=== PATIENT | female | born 1960 | race Caucasian/White ===

== ENCOUNTER → 2018-09-19 15:53 | Outpatient (CLI) | payer OTHER, SELFPAY ==
--- NOTE | 2018-09-19 15:57 | RAD_ITS ---
STUDY: X-RAY - THORACIC SPINE REASON FOR EXAM: Female, 58 years old. PAIN AND LIMITED ROM X1 WEEK S/P BENDING INJURY TECHNIQUE: 3 view(s) of the thoracic spine were obtained. COMPARISON: None. FINDINGS: Normal kyphosis of the thoracic spine. There is no substantial scoliosis. There is multilevel endplate spondylosis of the thoracic vertebrae. There is mild multilevel disc space narrowing of the thoracic spine. Mild partial compression fractures of indeterminate age are seen at T11 and T8. The soft tissue structures are unremarkable. RAD/Thoracic Spine 3 Views IMPRESSION: Mild degenerative changes consistent with age. Mild partial compression fractures of T8 and T11 of indeterminate age. Electronically Signed: Harmeet Horton MD at 16:20 EDT , Service support ,
--- NOTE | 2018-09-19 15:57 | RAD_ITS ---
STUDY: X-RAY - LUMBAR SPINE REASON FOR EXAM: Female, 58 years old. Pain. Limited range of motion. TECHNIQUE: 3 view(s) of the lumbar spine were obtained. COMPARISON: None FINDINGS: Normal lumbar lordosis. Mild levoconvex scoliosis with a rotatory component. Alignment is within normal limits. No compression fractures. Moderate to severe degenerative disc disease at L2-L3 and L3-L4. There is atherosclerotic calcification of the abdominal aorta without a demonstrated aneurysm. RAD/Lumbar Spine 2 or 3 Views IMPRESSION: No acute abnormality. Mild levoconvex scoliosis. Multilevel degenerative changes. Electronically Signed: Harmeet Horton MD at 16:21 EDT , Service support ,
== END ==
PROVIDERS: Referring Provider Physician Assistant; Visit Provider Physician Assistant
DX: M54.9 Dorsalgia, unspecified (principal)
CPT/HCPCS: 72072; 72100

== ENCOUNTER 2020-02-28 09:30 | Emergency (ER) | payer OTHER, MEDICAID, SELFPAY ==
[2020-02-28 09:31] VITALS: BP 148/80; PULSE 75; RESP 18; TEMP 36.4; O2SAT 99; BMI 27.6
--- NOTE | 2020-02-28 09:40 | ED.DCSUM_ITS ---
History of Present Illness <Russell Faustin - Last Filed: 02/28/20 10:42> Informant: Patient, Family Occurred: Yesterday Mechanism/Context: Fall Onset: Yesterday Context: Sudden Onset Timing: Continuous Quality of Pain: Sharp, Throbbing Location: left knee Current Severity: Severe Maximum Severity: Severe Worsened by: movement, walking Relieved by: nothing Associated Symptoms: Negative for: Parasthesia, Weakness, Loss of Funtion Narrative: 59-year-old female presents to the emergency department with left knee pain. Patient tripped over her cord for her vacuum last evening landing directly on her left knee anteriorly. She had no prodromal symptoms. She did not hit her head or lose consciousness. She denies any numbness tingling or weakness. She is not on blood thinners. She is having pain and swelling of the left knee. She is able to bear weight but complains of significant pain with doing so. She has not had any history of injury or surgery to this extremity previously. She denies any other injuries Tetanus Immunization: Unknown Prior similar symptoms: No Recent Illness/Hospitalization: No <Fortunato Chau - Last Filed: 02/28/20 11:06> Chief Complaint: Fall Past Medical History <Russell Faustin - Last Filed: 02/28/20 10:42> Prior records reviewed: Yes Past Medical History: None Surgical History: no surgical history Lives: With Family Smoking Status: Current every day smoker Alcohol: Occasional Drugs: None <Fortunato Chau - Last Filed: 02/28/20 11:06> - Allergies and Home Meds Allergies/Adverse Reactions: Allergies meperidine [From Demerol] Allergy (Verified 02/28/20 09:34) Itching Primary Care Physician: Narciso Chávez MD [Primary Care Provider] - Review of Systems All systems negative except as indicated General: Denies: Chills, Fever, Sweats Eyes: Denies: Visual changes - bilaterally, Diplopia ENT: Denies: Rhinorrhea, Sore throat Cardiovascular: Denies: Chest pain, Palpitations Respiratory: Denies: Dyspnea, Cough, Dyspnea on exertion Gastrointestinal: Denies: Abdominal pain, Nausea, Vomiting, Diarrhea, Melena, Hematochezia Genitourinary: Denies: Dysuria, Hematuria, Frequency Musculoskeletal: Reports: Swelling, Extremity Pain. Denies: Back pain Skin: Denies: Rash, Wounds Neurological: Denies: Headache, Weakness, Numbness <Fortunato Chau - Last Filed: 02/28/20 11:06> Physical Exam Vital Signs/Narrative: Vital Signs Temp Pulse Resp BP Pulse Ox 02/28/20 09:31 97.5 F L 75 18 148/80 H 99 <Russell Faustin - Last Filed: 02/28/20 10:42> Vital Signs/Narrative: Vital Signs Temp Pulse Resp BP Pulse Ox 02/28/20 09:31 97.5 F L 75 18 148/80 H 99 Inital Vital Signs reviewed: Yes - Extremity Exam Left Knee: - - Patient has swelling anteriorly over her left knee. There is no bruising. There are no abrasions or signs of trauma. Her skin is intact. There is no deformity noted. She is able to actively flex and extend fully but it is extremely painful for her. She is neurovascularly intact distally. There is no bony tenderness of her hip or thigh, leg, ankle or foot. DP and PT pulses are normal and her capillary refill and sensation are normal throughout all 5 toes. General: Well nourished, Well developed Head: Normocephalic, Atraumatic Eyes: Perrl, EOMI ENT: No Trauma, Moist Mucous Membranes Neck: Nontender, Full ROM Cardiovascular: Regular rate, Regular rhythm, No murmurs Respiratory: No distress, CTA bilaterally, Chest nontender Abdomen: Soft, Nontender, Nondistended, Normal bowel sounds Back: Nontender Skin: Normal color, No rash Neurological: Alert, Oriented x3, Cranial nerves II-XII grossly intact, Normal Strength, Normal Sensation Psychological: Normal affect <Fortunato Chau - Last Filed: 02/28/20 11:06> Diagnostic/Tx/Re-eval - Medical Decision Making I supervised the PA and have performed my own pertinent history and physical. Results and treatment plan were discussed. HPI: Patient reports that last night she tripped over a cord to a heater and landed on her left knee. She denies any blow to the head or loss of consciousness. She is not on anticoagulants. She denies any neck, back, shoulder, wrist, or hip pain. PE: Vitals: Stable. Afebrile. Neck: No vertebral tenderness. Full ROM without difficulty. Cleared by NEXUS criteria. Back: No vertebral tenderness. General: A&O x 3. NAD. Cardiovascular exam: Regular rate and rhythm, no murmur, rub or gallop. Respiratory exam: Chest nontender. No crepitus. Clear to auscultation bilaterally. No wheezes or stridor. Abdominal exam: Soft, nontender, nondistended, normal bowel sounds. No pain in RUQ or LUQ specifically. No peritoneal signs. Extremity: Moderate left knee effusion. No pain with palpation. Limited range of motion secondary to pain. She is able to extend her leg off the bed. She is neurovascular intact distally. Emergency Department course: X-ray shows no fracture. Read by the radiologist as a possible popliteal cyst. Because of this an ultrasound will be obtained. Treatment Plan: Patient will be discharged with crutches and an Daniel wrap. Instructed use use [place] for pain. Follow-up her primary care physician in 1 week if not improving. Return to the emergency department for any worsening symptoms. This note was generated with [employer] dictation software. It may contain incorrect words, spelling, and punctuation that were not noted in review of the chart prior to signing. <Russell Faustin - Last Filed: 02/28/20 10:42> Impressions Knee X-Ray 02/28/20 10:04 IMPRESSION: Findings suggestive of a popliteal cyst. Correlation with ultrasound is recommended. Electronically Signed: David Zonia, at 10:24 EDT , Service support , 02/28/20 10:04 Xray Knee [Knee 4 or More Views] [RAD] Stat - Medical Decision Making Ultrasound showed a small Cain's cyst about 1 x 2 cm. No DVT. Patient reassured. Patient given Daniel wrap and crutches and I will use [place] for pain she will rest ice elevate and follow-up on Monday with her family physician or return for worsening symptoms which we discussed. <Fortunato Chau - Last Filed: 02/28/20 11:06> ED Disposition <Russell Faustin - Last Filed: 02/28/20 10:42> <Fortunato Chau - Last Filed: 02/28/20 11:06> - Plan for ED Patient: Disposition: Home or Assisted Living Diagnosis: Contusion of left knee, Cyst, Cain's knee Instructions: ED Cyst Cain, ED SOFT TISSUE CONTUSION Prescriptions: Oxycodone HCl/Acetaminophen [Percocet 5/325] 1 tab PO Q6H PRN PRN 3 Days #12 tab PRN Reason: Pain Prescription Printed Referrals: Narciso Chávez MD [Primary Care Provider] -
[2020-02-28] MEDS: Ketorolac 60 MG/2 ML Vial IM (09:56)
--- NOTE | 2020-02-28 10:04 | RAD_ITS ---
STUDY: X-RAY - LEFT KNEE REASON FOR EXAM: Female, 59 years old. Pain, injury, swollen, pt. Had difficulty bending knee TECHNIQUE: 4 view(s) of the knee. COMPARISON: None. FINDINGS: Normal visualized distal femur. Normal visualized proximal tibia and fibula. Normal proximal tibiofibular articulation. Normal medial femorotibial compartment. Normal lateral femorotibial compartment. Normal patellofemoral articulation. Findings suggestive of a 8.1 cm x 7.1 cm rounded soft tissue density in the popliteal fossa. This may represent a popliteal cyst. Correlation with ultrasound is recommended. RAD/Knee 4 or More Views IMPRESSION: Findings suggestive of a popliteal cyst. Correlation with ultrasound is recommended. Electronically Signed: David Brar, at 10:24 EDT , Service support ,
--- NOTE | 2020-02-28 10:35 | VDLE_ITS ---
Reason For Study: Popliteal cyst Procedure LEFT Exam performed portable in ED. GSV is normal. A preliminary report was called and/or faxed CFV is compressible, spontaneous, phasic, to Roxie and Kandi. competent, and demonstrates normal augmentation. FV is compressible, spontaneous, phasic, competent and demonstrates normal augmentation. POP V is compressible, spontaneous, phasic, competent and demonstrates normal augmentation. T/P Trunk is compressible. PTV is compressible. LT PerV is compressible. Nonvascularized structure noted in the popliteal space measuring approximently 1.12 x 2.13 x 3.15 cm. Interpretation Summary Deep veins of the left lower extremity are patent and compressible segmentally. There is no evidence of left lower extremity deep vein thrombosis. Valvular competence appears intact within the proximal deep venous system on the left . The left great saphenous vein appears patent and compressible segmentally. A non-vascular, heterogeneous structure is noted in the left popliteal space, measuring 1.12 cm x 2.13 cm x 3.15 cm. This may represent a popliteal cyst. Clinical correlation is advised. Ordering Physician: Russell Faustin Referring Physician: Narciso Chávez Performed By: Svetlana Carrion RVT
== END 2020-02-28 11:47 | disposition home or self-care (01) ==
PROVIDERS: Emergency Provider Physician Assistant Medical; PCP Family Medicine
DX: S80.02XA Contusion of left knee, initial encounter (principal); W18.09XA Striking against other object with subsequent fall, initial encounter; Y93.9 Activity, unspecified; Y92.009 Unspecified place in unspecified non-institutional (private) residence as the place of occurrence of the external cause; M71.22 Synovial cyst of popliteal space [Baker], left knee; F17.200 Nicotine dependence, unspecified, uncomplicated
CPT/HCPCS: 73564; 93971; 96372; 99283

== ENCOUNTER → 2020-05-26 12:29 | Outpatient (CLI) | payer MEDICAID, SELFPAY ==
--- NOTE | 2020-05-26 12:34 | BI_ITS ---
MAMMOGRAPHY - BILATERAL SCREENING REASON FOR EXAM: Female, 59 years old. Routine annual screening examination. PERTINENT HISTORY: Non-contributory. TECHNIQUE: Digital bilateral breast debbie (3D mammographic acquisition) in the CC and MLO projections. 2-D mediolateral oblique (MLO) and craniocaudad (CC) views of both breasts were obtained. CAD: Full Field Digital Mammography with Computer Added Detection was performed. COMPARISON: No comparison mammograms available at this time. If any prior films become available, an addendum to this report can be generated. FINDINGS: Breast Composition: There are scattered areas of fibroglandular density. There are no dominant masses or suspicious calcifications. No other significant abnormalities are identified. BI/SCREEN MAMM (CAD) W/DEBBIE BILAT IMPRESSION: Negative screening mammogram. Yearly followup mammogram recommended. (A) ASSESSMENT CATEGORY: BIRADS Category 1: Negative. A letter regarding these results will be sent to the patient by the facility within 30 days. Approximately 10% of breast cancers are not detected by mammography. A normal mammogram should not delay biopsy of a clinically suspicious abnormality. [id number] Electronically Signed: David Brar, at 13:20 EST , Service support ,
== END ==
PROVIDERS: PCP Family Medicine; Referring Provider Family Medicine; Visit Provider Family Medicine
DX: Z12.31 Encounter for screening mammogram for malignant neoplasm of breast (principal)
CPT/HCPCS: 77063; 77067

== ENCOUNTER → 2020-06-22 10:08 | Outpatient (CLI) | payer MEDICAID, SELFPAY ==
--- NOTE | 2020-06-22 10:51 | MRI_ITS ---
ACR Level 3 findings have been noted. An addendum which confirms receipt of the report will follow. STUDY: MRI LUMBAR SPINE WITHOUT CONTRAST REASON FOR EXAM: Female, 60 years old. low back pain, left leg pain TECHNIQUE: Standardized fat and water weighted pulse sequences were obtained in the sagittal and axial planes. COMPARISON: X-ray dated 09/19/2018 FINDINGS: Normal lumbar lordosis. Dextroscoliosis centered at L2/L3. Normal conus medullaris that terminates at the L1. L1-2: There is minimal disc space narrowing and endplates spondylosis. L2-3: There is moderate disc space narrowing and endplates spondylosis. Moderate disc bulge and facet arthropathy asymmetric to the right with moderate right and mild left foraminal stenosis. There is 2.2 x 1.4 x 3.5 cm lobulated cystic structure at the right paracentral/foraminal region. There is scalloping of the vertebral body which was seen on the prior x-ray examination in 2019, consistent with chronic process. Evaluation is limited without intravenous contrast. L3-4: There is severe disc space narrowing and endplates spondylosis. Moderate disc osteophyte complex and facet arthropathy with mild central canal stenosis. Moderate right and mild left foraminal stress. L4-5: There is moderate disc space narrowing and endplates spondylosis. Moderate disc osteophyte complex and facet arthropathy asymmetric to the left with moderate left foraminal stenosis. Mild central canal and mild right foraminal stenosis. L5-S1: There is minimal disc space narrowing and endplates spondylosis. Minimal disc bulge and facet arthropathy without significant central canal or foraminal stenosis. MRI/Spine Lumbar (Routine) IMPRESSION: L2/L3: 2.2 cm cystic lesion. Comparison with prior examinations if available or Further evaluation with contrast enhanced MRI is recommended. Moderate/severe scoliosis and multilevel degenerative changes. Electronically Signed: Bo Sierra MD at 9:47 EST Tel , Service support ,
== END ==
PROVIDERS: PCP Family Medicine; Referring Provider Orthopaedic Surgery; Visit Provider Orthopaedic Surgery
DX: M47.26 Other spondylosis with radiculopathy, lumbar region (principal)
CPT/HCPCS: 72148

== ENCOUNTER → 2020-07-30 10:14 | Outpatient (CLI) | payer MEDICAID, SELFPAY ==
--- NOTE | 2020-07-30 10:21 | BD_ITS ---
STUDY: DUAL ENERGY X-RAY ABSORPTIOMETRY / DXA REASON FOR EXAM: Female, 60 years old. 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 COMPARISON: None. FINDINGS: Lumbar Spine (L1-L4): g/cm2 (1.047) / T-score (-1.3) / Z-score (-0.2) Findings are suggestive of osteopenia with a low fracture risk. Left Femur Total: g/cm2 (0.628) / T-score (-3.0) / Z-score (-2.1) Left Femoral Neck: g/cm2 (0.620) / T-score (-3.0) / Z-score (-1.8) Right Femur Total: g/cm2 (0.623) / T-score (-3.1) / Z-score (-2.2) Right Femoral Neck: g/cm2 (0.607) / T-score (-3.1) / Z-score (-1.9) BD/Dexa Bone Density Study IMPRESSION: The patient is considered osteoporotic as outlined below according to World Pierre Organization (WHO) criteria with a high fracture risk. Reference Information: The T-score is the number of standard deviations above or below the standard which is normal for young adults at their peak bone mineral density. The World Health Organization (WHO) interprets the T-scores as follows: Above -1 Normal bone density Between -1 and -2.5 Osteopenia Equal to / or below -2.5 Osteoporosis As a practical clinical guideline, osteopenia may be graded as follows: Mild -1 through -1.5 Moderate -1.6 through -2.0 Severe -2.1 through -2.4 The Z-score is the number of standard deviations above or below age-matched controls. A Z-score of less than -1.5 would be considered abnormal. References: 1. NIH Osteoporosis and Related Bone Diseases www osteo.org 2. International Society for Clinical Densitometry www iscd.org 3. National Osteoporosis Foundation www nof.org Electronically Signed: David Brar MD at 14:38 EST , Service support ,
== END ==
PROVIDERS: PCP Family Medicine; Referring Provider Family Medicine; Visit Provider Family Medicine
DX: M81.0 Age-related osteoporosis without current pathological fracture (principal); Z78.0 Asymptomatic menopausal state
CPT/HCPCS: 77080

== ENCOUNTER → 2020-12-10 07:55 | Outpatient (CLI) | payer MEDICAID, SELFPAY ==
[2020-12-02 13:18] VITALS: BMI 26.0
--- NOTE | 2020-12-10 07:56 | CT_ITS ---
STUDY: LOW DOSE CT LUNG CANCER SCREENING REASON FOR EXAM: Female, 60 years old. TOBACCO USE RADIATION DOSAGE (If Supplied By Facility): CTDIvol = ( 3.02 ) mGy, DLP = ( 105.33 ) mGycm TECHNIQUE: No contrast was administered. Low dose technique was utilized (average mAS-38 and kVp 120). 1.25 mm axial source images with a slice interval of 1.25-mm were reconstructed in lung windows. 2.5 mm axial source images with a slice interval of 2.5-mm were reconstructed in lung windows. 5.0 mm axial source images with a slice interval of 5.0-mm were reconstructed in soft tissue windows. Nodule measured using lung windows on PACS and/or independent workstation with automated measurement of minimum and maximum diameter. Nodule measurement reported as average diameter rounded to the nearest whole number. Growth is defined as an increase ins size of greater than 1.5 mm. COMPARISON: None. FINDINGS: There is a suspicious poorly defined, somewhat spiculated noncalcified mass in the left perihilar region measuring 2.3 x 2.5 x 2.7 cm. This needs further evaluation with PET/CT scan or biopsy. There is associated atelectasis but no other suspicious noncalcified mass or nodule noted. The soft tissues show normal-appearing thyroid no suspicious adenopathy. There are calcified coronary vessels. Bony structures show degenerative change CT/Low Dose CT Lung Screening IMPRESSION: Lung-RADS category 4X - Chest CT with or without contrast, PET/CT and/or tissue sampling can be obtained depending on the probability of malignancy and comorbidities. IMPORTANT NOTES FOR USE: ACR Lung-RADS Version 1.1 Assessment Categories Release Date: 2018 Category: Coded 0-4 bases on nodule(s) with highest degree of suspicion. Negative screen is defined as categories 1 and 2; a positive screen is defined as categories 3 and 4. Category 3 and 4A nodules that are unchanged on interval CT should be coded as category 2, and individuals returned to screening in 12 months. Category 4X: Category 3 or 4 nodules with additional imaging findings that increase the suspicion of lung cancer, such as spiculation, GGN that doubles in size in 1 year, enlarged lymph notes, etc. Category Modifiers: S (significant finding unrelated to lung cancer) Electronically Signed: Gael Atkins MD at 16:17 EDT , Service support ,
== END ==
PROVIDERS: PCP Family Medicine; Referring Provider Family Medicine; Visit Provider Family Medicine
DX: Z72.0 Tobacco use (principal)
CPT/HCPCS: 71271

== ENCOUNTER → 2020-12-29 18:10 | Outpatient (CLI) | payer MEDICAID, SELFPAY ==
[2020-12-02 13:18] VITALS: BMI 26.0
--- NOTE | 2020-12-29 17:00 | PET_ITS ---
EXAMINATION: FDG PET-CT INDICATIONS: A 60-year-old female with reported history of pulmonary nodularity. COMPARISON EXAMINATION: CT of the chest report dated 12/10/20 INDEX LESION SIZE SUV INTERPRETATION Left mid posteromedial lung-left upper lobe 23.6 x 32.3-mm (frame 174) 12.4 Fulfills quantitative criteria for viable neoplasm, histopathologic analysis recommended TECHNIQUE: Following the intravenous administration of 14.38 mCi of F-18 deoxyglucose via the left antecubital fossa, multiplanar image acquisitions of the neck, chest, abdomen and pelvis to level of mid thigh, obtained at one hour post radiopharmaceutical administration contemporaneously interpreted with the current CT of the neck, chest, abdomen and pelvis, to level of mid thigh, dated 12/29/[address] of the chest report dated 12/10/20 reveals: BLOOD GLUCOSE LEVEL:?? 83 mg/dl?HEIGHT:?66 inches?WEIGHT: 166 lbs. FINDINGS: 1. Focal increased glucose metabolism is manifest in the left mid medial lung-left upper lobe adjacent to the thoracic perihilum generating a calculated maximal standard uptake value of 12.4. The maximal axial diameter of the corresponding parenchymal density-mass on review of CT of the chest dated 12/29/20 is 23.6-mm (transverse) x 32.3-mm (AP). 2. There is an asymmetric increase in fluorine labeled glucose uptake noted in the right parotid space generating a calculated maximal standard uptake value of 2.0. 3. Normal physiologic distribution of the radiopharmaceutical is apparent in the hepatic (2.8) and splenic parenchyma, both renal units, bladder and visualized intestinal tract. The visualized portion of the cerebral cortical-subcortical structures demonstrate symmetric and preserved glucose metabolism. Diffuse radiopharmaceutical concentration is noted in all four quadrants of the abdomen and pelvis. Pertinent CT findings are as follows: CHEST: There is atherosclerotic calcification defined in the thoracic aorta without evidence of dilatation-aneurysm formation. Coronary arterial calcification is observed. Bilateral axillary soft tissue densities with fatty hilus are non-glucose avid. There are no additional parenchymal densities-nodules defined in the right and left hemithorax with discernible increased FDG concentration. Subtle emphysematous changes are noted in the bilateral upper lung zones. ABDOMEN AND PELVIS: There is atherosclerotic calcification defined in the abdominal aorta without evidence of dilatation-aneurysm formation. Pelvic arterial calcification is defined. Right and left subcentimeter inguinal soft tissue is ametabolic. Colonic diverticulosis is defined. The uterus appears surgically absent. SKELETAL: Degenerative changes are noted in the cervical, thoracic and lumbar spine without evidence of increased radiopharmaceutical concentration. There is diffuse demineralization identified throughout the axial skeletal structures. PET/PET/CT Tumor Base -Thigh Init IMPRESSION: 1. The increase in FDG distribution defined in the left mid medial lung-left upper lobe fulfills quantitative criteria for viable neoplasm. Histopathologic analysis is recommended. (Lemus et al, Annals of Internal Medicine, 138:724, 2003). 2. Mild increased tracer uptake observed in the right parotid space does not fulfill quantitative criteria for malignant transformation. 3. No other quantitatively significant hypermetabolic abnormalities are encountered. Electronic Signature Zach Ruiz D.O. Accurate Quantification of SUVs for this report are calculated using the exclusive [employer]. (U.S. Patent No. [id number]). Standardization and correction of the FDG SUV metric via [employer] technology allow for vendor non-specific objective quantitative examination comparison and optimization of the sensitivity and specificity of the FDG PET-CT examination. Electronically Signed: Zach Ruiz DO at 7:59 EDT Tel , Service support ,
== END ==
PROVIDERS: PCP Family Medicine; Referring Provider Registered Nurse; Visit Provider Registered Nurse
DX: R91.8 Other nonspecific abnormal finding of lung field (principal)
CPT/HCPCS: 78815; A9552

== ENCOUNTER → 2021-01-13 12:15 | Outpatient (CLI) | payer MEDICAID, SELFPAY ==
[2021-01-13 05:56] VITALS: BMI 29.6
[2021-01-13 12:31] LABS: Hematocrit 44.5 % (37-47); Hemoglobin 14.7 g/dL (12.0-15.0); Mean Corpuscular Volume 93.9 fL (81-99); Mean Platelet Vol. 9.7 fl (6.2-12.0); Platelet Count 273 K/mm3 (150-450); RBC Distribution Width CV 13.2 % (11.6-14.6); RBC Distribution Width SD 45.3 fl (35.1-43.9); Red Blood Count 4.74 M/mm3 (4.2-5.4); White Blood Count 8.1 K/mm3 (4.4-11.0)
[2021-01-13 12:39] LABS: Prothrombin Time (Protime)PT. 12.6 SECONDS (11.7-14.9)
[2021-01-13 12:40] LABS: Partial Thromboplast Time 30.1 Seconds (24.1-36.2)
== END ==
PROVIDERS: PCP Family Medicine; Referring Provider Internal Medicine Critical Care Medicine; Visit Provider Internal Medicine Critical Care Medicine
DX: R91.8 Other nonspecific abnormal finding of lung field (principal)
CPT/HCPCS: 36415; 85027; 85610; 85730

== ENCOUNTER → 2021-01-22 08:04 | Outpatient (CLI) | payer MEDICAID, SELFPAY ==
[2021-01-13 05:56] VITALS: BMI 29.6
--- NOTE | 2021-01-22 15:10 | PFTCOMP_ITS ---
COMPLETE PULMONARY FUNCTION TEST INTERPRETATION Brief HPI: Patient is a 60 year old female, currently under the care of myself, who presents to [facility] for complete pulmonary function tests secondary to diagnosis of dyspnea. Respiratory therapist reports good effort and reproducible results. Interpretation: Forced expiration spirometry shows a moderately severe large airways obstructive ventilatory defect with an FEV1 of 51% predicted. There is a significant bronchodilator response in FEV1 by strict ATS criteria. Spirograms are of good quality and plateau slowly, indicating slowly emptying areas of the lungs. The respiratory flow volume loop shows decreased expiratory flow rates at all lung volumes consistent with airway obstruction. Lung volumes by body plethysmography show a normal total lung capacity at 5.54 L, 104% predicted. FRC and RV are elevated out of proportion. Lung volume measurements are consistent with hyperinflation and air-trapping. Diffusion capacity by carbon monoxide is normal at 70% predicted. The airway resistance is elevated. No previous pulmonary function tests were available for review. Impression: Partially reversible moderately severe large airways obstructive ventilatory defect resulting in air trapping
== END ==
PROVIDERS: PCP Family Medicine; Referring Provider Internal Medicine Critical Care Medicine; Visit Provider Internal Medicine Critical Care Medicine
DX: R06.00 Dyspnea, unspecified (principal)
CPT/HCPCS: 94060; 94726; 94729

== ENCOUNTER → 2021-01-26 13:45 | Outpatient (CLI) | payer MEDICAID, SELFPAY ==
[2021-01-13 05:56] VITALS: BMI 29.6
[2021-01-26 14:07] VITALS: PULSE 104; PULSE 111; PULSE 119; PULSE 123; PULSE 74; PULSE 83; PULSE 89; O2SAT 90; O2SAT 91; O2SAT 95; O2SAT 96; O2SAT 97; O2SAT 98
--- NOTE | 2021-01-27 09:54 | PCM.PSN.6M ---
PSN 6 Minute Walk Test 6 Minute Walk Test 6 Minute Walk Test: 6 Minute Walk Test PSN:6-Minute Walk Test Start: 01/26/21 14:07 Freq: Status: Active Protocol: RESP.6MINW Document 01/26/21 14:07 FR (Rec: 01/26/21 14:12 FR [id number]) 6 Minute Walk Test Date Performed 01/26/21 Time Performed 13:45 Height 5 ft 6 in Weight: 168 kg Weight in Pounds 370.[address]: Dr. Sanabria Assistive device used: None Pre-test Oxygen Delivery Method Room Air Pulse Ox (%) 96 Pulse Rate (60-100 beats/min) 74 Dyspnea Lu Scale (0-10) 0 Exertion Lu Scale (6-20) 6 1st minute Oxygen Delivery Method Room Air Pulse Ox (%) 98 Pulse Rate (60-100 beats/min) 89 2nd minute Oxygen Delivery Method Room Air Pulse Ox (%) 91 Pulse Rate (60-100 beats/min) 104 H 3rd minute Oxygen Delivery Method Room Air Pulse Ox (%) 90 Pulse Rate (60-100 beats/min) 111 H 4th minute Oxygen Delivery Method Room Air Pulse Ox (%) 95 Pulse Rate (60-100 beats/min) 123 H 5th minute Oxygen Delivery Method Room Air Pulse Ox (%) 95 Dyspnea Lu Scale (0-10) 118 Reported Symptoms Increased Work of Breathing 6th minute Oxygen Delivery Method Room Air Pulse Ox (%) 95 Pulse Rate (60-100 beats/min) 119 H Dyspnea Lu Scale (0-10) 5 Exertion Lu Scale (6-20) 11 Post-test Oxygen Delivery Method Room Air Pulse Ox (%) 97 Pulse Rate (60-100 beats/min) 83 Full Laps Walked 25 Partial Lap, Number of Tiles Walked 15 Total Distance Walked (ft) 1490 Interpretation Interpretation: The patient ambulated 1490 feet over the course of 6 minutes beginning on room air without assistive devices or breaks. Pretesting oxygen saturation was noted to be 96% on room air. With ambulation, the claudio oxygen saturation was 90%. This represents a significant exertional oxygen desaturation, consistent with a pulmonary limitation to exercise tolerance. Recommendations Recommendations: There is no indication for the use of supplemental oxygen at this time. However, close interval follow-up is recommended, given the degree of oxygen desaturation noted during this study.
== END ==
PROVIDERS: PCP Family Medicine; Referring Provider Internal Medicine Critical Care Medicine; Visit Provider Internal Medicine Critical Care Medicine
DX: R06.00 Dyspnea, unspecified (principal)
CPT/HCPCS: 94618

== ENCOUNTER 2021-01-29 10:50 | Day surgery (SDC) | payer MEDICAID, SELFPAY ==
[2021-01-13 05:56] VITALS: BMI 29.6
[2021-01-29] VITALS (7 sets, daily range): BP systolic 138–162; BP diastolic 73–89; PULSE 60–95; RESP 12–18; TEMP 36.4–36.6; O2SAT 96–100; BMI 27.3
--- NOTE | 2021-01-29 | LUNG_PTH ---
PATIENT: ANNA MALIN LOC: EN U#:[id number] AGE/SX: 60/F ROOM: RE01/29/[address]: Dr. Miguel Sanabria MD : 1960 BED: DIS: 01/29/2021 SPEC #: [id number] RECD: 01/29/21 13:52 STATUS: KELVIN LAUREN #: [id number] EMILIANO: 01/29/21 00:[address]: Miguel Sanabria DEPT: SURGICAL PATHOLOGY RECD BY: Torie Thomas ENTERED: 02/01/21 06:59 SP TYPE: LUNG BX OTHR DR: Dr. Narciso Chávez MD Tissues: Lung, NOS Procedures: Special Stain Group II Surgery Specimen Level IV Cytology Other HEADER OPERATION: EBUS PRE-OP DIAGNOSIS: Lung mass TISSUE SUBMITTED: Endobronchial biopsy LLL MICROSCOPIC DIAGNOSIS LLL, endobronchial biopsy: Fragments of bronchial mucosa and lung parenchymal tissue, negative for malignancy. See comment. MJ:kim 02/02/2021 COMMENT The specimen is evaluated at the time of biopsy by Dr. Rodgers. Immediate Evaluation = Respiratory epithelial cells noted. Negative for malignant cells. Correlation with clinical, radiologic findings and appropriate follow up are necessary. This case is discussed with Dr. Sanabria on 02/02/21. Case has been reviewed in consultation with Dr. Ohara who concurs with the above diagnosis. IDC:AM MICROSCOPIC DESCRIPTION Slides are reviewed. GROSS DESCRIPTION Received in fixative is one container labeled with the patient's name and designated endobronchial biopsy, left lower lobe of lung. The specimen consists of multiple irregular fragments of light hahn soft tissue that in aggregate measure 1 x 0.3 x <0.1 cm. The specimen is totally submitted in one cassette. / AM:kim 02/01/21 TC:5 CPT: 37041, 20089
--- NOTE | 2021-01-29 | ASPIG_PTH ---
PATIENT: ANNA MALIN LOC: EN U#:[id number] AGE/SX: 60/F ROOM: RE01/29/[address]: Dr. Miguel Sanabria MD : 1960 BED: DIS: 01/29/2021 SPEC #: [id number] RECD: 01/29/21 13:52 STATUS: KELVIN XIN #: [id number] EMILIANO: 01/29/21 00:[address]: Miguel Sanabria DEPT: CYTOLOGY RECD BY: Jolene Myles ENTERED: 01/29/21 13:54 SP TYPE: ASP OUT OTHR DR: Dr. Narciso Chávez MD Tissues: A - Lung, NOS B - Lung, NOS C - Lung, NOS D - Lung, NOS E - Lung, NOS F - Lung, NOS G - Lung, NOS H - Lung, NOS I - Lung, NOS Procedures: FNA Specimen Adequacy Special Stain Group II Surgery Specimen Level IV Cytology Other HEADER OPERATION: EBUS PRE-OP DIAGNOSIS: Lung mass TISSUE SUBMITTED: A - EBUS, TBNA, site 7 #1, B - EBUS, TBNA, site 7 #2, C - EBUS, TBNA, site 11L #3, D - EBUS, TBNA, site 11L #4, E - EBUS, TBNA, site 11L #5, F - EBUS, TBNA, site 11L #6, G - EBUS, TBNA, site 11L #7, H - EBUS, TBNA, site 7, I - EBUS, TBNA, site 11L, J - Pritchett LLL, K - LLL DIAGNOSIS CYTOLOGY A. EBUS, TBNA, site 7 #1: Negative for malignant cells. Respiratory epithelial cells and lymphocytes noted. B. EBUS, TBNA, site 7 #2: Negative for malignant cells. Respiratory epithelial cells and lymphocytes noted. C. EBUS, TBNA, site 11L #3: Negative for malignant cells. Predominantly respiratory epithelial cells noted. D. EBUS, TBNA, site 11L #4: Negative for malignant cells. Predominantly respiratory epithelial cells noted. E. EBUS, TBNA, site 11L #5: Negative for malignant cells. Numerous respiratory epithelial cells and lymphocytes noted. F. EBUS, TBNA, site 11L #6: Numerous lymphocytes are noted. Negative for malignant cells G. EBUS, TBNA, site 11L #7: Numerous lymphocytes are noted.. Negative for malignant cells. H. EBUS, TBNA, site 7 fluid (cell block): Negative for malignant cells. See microscopic description. I. EBUS, TBNA, site 11L fluid (cell block): Negative for malignant cells. See microscopic description. J. Pritchett LLL (cytospin and cell block): Negative for malignant cells. See comment. K. Brushing LLL (smears): Negative for malignant cells. MJ:kim 02/02/2021 COMMENT The specimen is evaluated at the time of procedure by Dr. Rodgers. Rapid Onsite Evaluation: A. EBUS, TBNA, site 7 #1: Negative for malignant cells. Respiratory epithelial cells and lymphocytes. B. EBUS, TBNA, site 7 #2: Negative for malignant cells. Respiratory epithelial cells and lymphocytes. C. EBUS, TBNA, site 11L #3: Negative for malignant cells. Predominantly respiratory epithelial cells. D. EBUS, TBNA, site 11L #4: Negative for malignant cells. Predominantly respiratory epithelial cells. E. EBUS, TBNA, site 11L #5: Negative for malignant cells. Numerous respiratory epithelial cells and some lymphocytes. F. EBUS, TBNA, site 11L #6: Numerous lymphocytes are noted. G. EBUS, TBNA, site 11L #7: Numerous lymphocytes are noted. Negative for malignant cells. Correlation with clinical, radiologic findings and appropriate follow up are necessary. Case has been reviewed in consultation with Dr. Ohara who concurs with the above diagnosis. IDC:AM CYTOLOGY STUDY Slides are reviewed. H. The specimen consists of respiratory epithelial cells, lymphocytes and cartilage. I. The specimen consists of lymphocytes and respiratory epithelial cells. J. The specimen is paucicellular and consists of respiratory epithelial cells and a few lymphocytes. CYTOLOGY GROSS A - Received labeled with the patient's name and and designated EBUS, TBNA, site 7 #1. The specimen consists of two stained smears for DEBORAH (Rapid Onsite Evaluation). B - Received labeled with the patient's name and and designated EBUS, TBNA, site 7 #2. The specimen consists of two stained smears for DEBORAH. C - Received labeled with the patient's name and and designated EBUS, TBNA, site 11L #3. The specimen consists of two stained smears for DEBORAH. D - Received labeled with the patient's name and and designated EBUS, TBNA, site 11L #4. The specimen consists of two stained smears for DEBORAH. E - Received labeled with the patient's name and and designated EBUS, TBNA, site 11L #5. The specimen consists of two stained smears for DEOBRAH. F - Received labeled with the patient's name and and designated EBUS, TBNA, site 11L #6. The specimen consists of two stained smears for DEBORAH. G - Received labeled with the patient's name and and designated EBUS, TBNA, site 11L #7. The specimen consists of two stained smears for DEBORAH. H - Received in RPMI is 40 ml of pink, needle rinsed fluid labeled with the patient's name and and designated EBUS, TBNA, site 7. The specimen is submitted for cell block preparation. I - Received in RPMI is 45 ml of pink, needle rinsed fluid labeled with the patient's name and and designated EBUS, TBNA, site 11L. The specimen is submitted for cell block preparation. J - Received is a metallic endoscopic cytobrush with adherent minute fragments of hahn-red tissue brush in 2 ml of clear red fluid and labeled with the patient's name and and designated per the requisition as brush LLL. The material is dislodged from the brush and submitted for cytology preparation including cell block. K - Received are three smears labeled with the patient's name and designated per the requisition as LLL. Submitted for staining. / SJ:rg 01/29/2021 TC:5 CPT: 46879 x3, 15241, 72105, 83533 x2, 19146 x2, 93920 x5
[2021-01-29] MEDS: Lactated Ringers 1,000 ML 100 ML IV (11:20)
--- NOTE | 2021-01-29 11:58 | HP.PCM_ITS ---
History and Physical Date of Admission: 01/29/21 Patient seen and examined independently just prior to the procedure. All questions were answered. There is no significant change to the note provided below. [facility] Medicine [place] [address] [address] [place] [address] [phone] OFFICE VISITDate of Service: 01/13/21 MR#:[id number]:[id number]: ANNA MALIN #:[id number]:1960 Provider:Dr. Miguel Sanabria, MDAge/Sex: 60/F [place] [place] [facility] [place]Signed Assessment and Plan Assessment and Plan (1) Lung mass: Status: Acute Comment: 2.4 x 3.2 cm PRATEEK mass (2) Dyspnea: Status: Acute Orders: Orders: Bronchoscopy Today R91.8 Partial Thromboplast Time Today R91.8 Prothrombin Time w/INR Today R91.8 CBC-Complete Blood Cnt No Diff Today R91.8 Smoking Cessation Today R06.00 Pulmonary Function Test (Comp) Today R06.00 Simple Pulmonary Exercise Test Today R06.00 Plan - Dr. Miguel Sanabria MD: High clinical suspicion for malignancy given radiologic findings. Increased uptake is suggestive of stage Ia cancer as there is no uptake noted in the mediastinum. After review the risks, benefits and alternatives, patient has agreed to evaluation with EBUS. Patient also has high risk factors for COPD. Patient potentially will be a surgical candidate, so we will obtain complete pulmonary function test and walking oximetry for quantification clarification of lung function. No new medications at this time. Prepare for EBUS. Obtain complete PFT and walking oximetry. No new medications for now. Plan Details Follow Up: 1 Month (CSM) HPI lung mass Details: Patient is a 60-year-old female, currently under the care of Dr. Chávez, who presents for evaluation secondary to an abnormal PET scan. Patient states that she had a friend that was recently diagnosed with cancer and she was concerned with her smoking history. This led to a request for a low- dose CT scan which noted a left upper lobe mass. This was subsequently followed up with a PET scan that shows increased uptake and patient presents for recommendations. Patient reports that she continues to have a cough productive of white sputum that is typically worse in the morning. Patient is not reporting any hemoptysis or weight loss. Patient is smoking approximately 1-1/2 packs/day. Patient states she has tried to quit multiple times in the past by cold turkey and has been unsuccessful. Patient does have some nicotine patches at home and thinks that she may try this given these new findings. Patient states that she has been keeping up-to-date with her routine screening. Patient states she had a polypectomy over 10 years ago that was significant for atypical adenomatous, but never has had a formal diagnosis of colon cancer. Patient states she has had an abnormal Pap smear in her 20s, but subsequently no abnormalities have been noted. Patient states that she has been having her routine mammograms. Patient has never had pulmonary function test or seen a blow pit operator previously. Patient is not on any inhalers at this time, but has been placed on prednisone in the past with good effect. Review of systems otherwise negative from a constitutional, HEENT, respiratory, cardiovascular, GI, genitourinary, musculoskeletal, skin, neurologic, psychiatric and hematologic system unless stated above. Documentation reviewed prior to the office visit 15 pages of documentation were reviewed prior to the office visit. Patient does carry a diagnosis of rheumatoid arthritis, allergic rhinitis and a [id number] smoking history. Documentation is not clear on why a PET scan was initially ordered, but it was noted to have increased focal glucose metabolism in the left mid medial lung adjacent to the thoracic para hilum measuring 23.6 mm x 32.3 mm Intake Vital Signs 01/13/21 05:56 Height 5 ft 3.5 in Weight: 77.111 kg BMI 29.6 BP 144/88 H Blood Pressure Location Lt brachial Position Sitting Respiration 19 H Pulse 66 Pulse Source Monitor Temp 37.6 C H Temperature Source Temporal Artery Pulse Oximetry (%) 96 Oxygen Delivery Method room air Intake Visit Reasons: lung mass Chief Complaint: Lung Mass Casing Puller Required: No Accompanied by: Is patient in pain?: No Allergies meperidine [From Demerol] Allergy (Verified 01/13/21 10:58) Itching Medications duloxetine 60 mg capsule,delayed release 60 mg PO DAILY 01/13/21 [History Confirmed 01/13/21] ibandronate 150 mg tablet 150 mg PO QMONTH 01/13/21 [History Confirmed 01/13/21] meloxicam 15 mg tablet 15 mg PO DAILY 01/13/21 [History Confirmed 01/13/21] psyllium husk 0.4 gram capsule 0.4 g PO DAILY 01/13/21 [History Confirmed 01/13/21] rosuvastatin 10 mg tablet 10 mg PO DAILY 01/13/21 [History Confirmed 01/13/21] tizanidine 4 mg capsule 4 mg PO TID PRN 01/13/21 [History Confirmed 01/13/21] [facility] Medical History (Updated 01/13/21 @ 11:[address] Miguel Sanabria MD) Chronic neck and back pain Surgical History (Updated 08/05/20 @ 10:05 by Ronit Guerra) History of colonoscopy History of hysterectomy Social History (System 08/05/20 @ 10:05 by Ronit Guerra) Smoking Status: Current every day smoker tobacco type: cigarettes Tobacco: How many years used: 45 second hand exposure: Yes alcohol intake: never substance use type: does not use Review of Systems Resp Respiratory: Yes as per HPI Exam Const Constitutional: Positive conversant, cooperative, in no acute respiratory distress, healthy appearing, well developed, well nourished and good hygiene Head Head: Yes normocephalic, Yes atraumatic and No cyanosis of lips/distal nose Eyes Eye: Positive clear conjunctiva; Negative nystagmus, scleral abnormality or cataract present Ears Ear: Positive hearing normal and external ears normal; Negative hard of hearing Neck Neck: Positive normal visual inspection, full ROM and trachea midline; Negative lymphadenopathy or JVD Chest Wall Chest: Positive normal inspection of the chest and symmetric chest movement; Negative crepitus or tenderness Resp lung sounds: Positive diminished lung sounds, wheeze present on forced exhalation and prolonged expiratory time; Negative wheezes, rhonchi, rales, dullness or use of accessory muscles Cardio Cardiac: Positive regular rate, regular rhythm, S1 normal and S2 normal; Negative murmur, rub or gallop GI GI: Positive normal to inspection and normal bowel sounds; Negative distended, ascites or epigastric tenderness Genitourinary: Positive deferred Musc Musculoskeletal: Positive steady gait; Negative using an assistive device for ambulation, kyphosis or scoliosis Skin Pulmonary Skin Exam: Positive intact; Negative lesion, rash, ulcers or erythema Pulses Pulse: Yes radial pulses present Extremities Extremities: Yes capillary refill normal, No clubbing, No cyanosis and No edema Neuro Neurologic: Yes no focal neuro deficits, Yes conversant, Yes cooperative, Yes normal cognition, Yes normal coordination, Yes normal concentration and Yes understands questions Lymph Lymphatic: No lymphadenopathy Psych Appearance: Positive grossly normal Mental Status: Positive mental status grossly normal Mood: Positive congruent mood Affect: Positive normal affect Office Procedures Smoking Cessation Smoking Cessation Nithin discussion with the patient about the necessity of smoking cessation. Patient understands that this does increase her risk for cancer. Patient appears to be contemplative at this time. Patient states that she may use her nicotine patches between visits. Total discussion time of 12 minutes Time Spent greater than 10 minutes: Yes Coding Level of Care Code Off vis,new,level 5 Diagnoses Lung mass R91.8 Dyspnea R06.00
[2021-01-29] MEDS: Lidocaine 4% 5 ML Ampul INHALATION (12:12)
[2021-01-29 14:18] LABS: Cytology, Body Fluid / CSF SEE PATHOLOGY REPORT
--- NOTE | 2021-02-01 09:54 | OP.BRONCH_ITS ---
Patient Name: Walt Moran Procedure Date: 01/29/2021 11:42 AM Date of : 1960 Age: 60 Procedure: Bronchoscopy Indications: Lung mass suspicious for cancer Providers: Miguel Sanabria MD Referring MD: Narciso Chávez Medicines: General Anesthesia Complications: No immediate complications Procedure: Pre-Anesthesia Assessment: - A History and Physical has been performed. Patient meds and allergies have been reviewed. The risks and benefits of the procedure and the sedation options and risks were discussed with the patient. All questions were answered and informed consent was obtained. Patient identification and proposed procedure were verified prior to the procedure by the physician, the nurse and the core inserter in the pre-procedure area. Mental Status Examination: alert and oriented. Airway Examination: normal oropharyngeal airway and Mallampati Class II (the uvula but not tonsillar pillars visualized). Respiratory Examination: clear to auscultation. CV Examination: RRR, no murmurs, no S3 or S4. ASA Grade Assessment: II - A patient with mild systemic disease. After reviewing the risks and benefits, the patient was deemed in satisfactory condition to undergo the procedure. The anesthesia plan was to use general anesthesia. Immediately prior to administration of medications, the patient was re-assessed for adequacy to receive sedatives. The heart rate, respiratory rate, oxygen saturations, blood pressure, adequacy of pulmonary ventilation, and response to care were monitored throughout the procedure. The physical status of the patient was re-assessed after the procedure. After I obtained informed consent, the scope was passed under direct vision. Throughout the procedure, the patient's blood pressure, pulse, and oxygen saturations were monitored continuously. The bronchoscope was introduced through the mouth, via laryngeal mask airway and advanced to the tracheobronchial tree. The procedure was accomplished without difficulty. The patient tolerated the procedure well. Findings: The laryngeal mask airway is in good position. The vocal cords appear normal. The subglottic space is normal. The trachea is of normal caliber. The anya is sharp. The tracheobronchial tree was examined to at least the first subsegmental level. Bronchial mucosa and anatomy are normal; there are no endobronchial lesions, and no secretions. Dynamic airway collapse noted throughout the airway. The scope was withdrawn and replaced with the EBUS bronchoscope to accomplish the ultrasound examination. Lymph Nodes: An endobronchial ultrasound endoscope was utilized to systematically examine the subcarinal mediastinum (level 7) and left interlobar region (level 11L) in order to assist with fine needle aspiration. Lymph node sizing was performed via endobronchial ultrasound for suspected lung cancer. Sampling by transbronchial needle aspiration was also performed using an Olympus EBUS-TBNA 19 gauge needle in the subcarinal mediastinum (level 7) and left interlobar region (level 11L) and sent for routine cytology. Rapid On-Site Evaluation (DEBORAH) was also performed. - The 7 (subcarinal) node was 12 mm by EBUS. The node was round, hypoechoic and had well defined margins. Two samples with the needle were obtained. Preliminary cytology was suggestive of benign-appearing lymphoid tissue (final results are pending). - The 11L (interlobar) node was 10 mm by EBUS. The node was irregular, hypoechoic and had well defined margins. Four samples with the needle were obtained. Preliminary cytology was suggestive of benign-appearing lymphoid tissue (final results are pending). Lymph Nodes: A PET scan found all lymph nodes to be non-hypermetabolic. Just past the 11 L node, a hypoechoic area was noted. There was some concern for an obstructing vessel. Doppler was added showing approximately 5 mm vessel with arterial type blood flow in between the epithelium and the mass. Attempts to approach from different angles were unsuccessful as this was at the edge of the diameter allowed by the airway. Endobronchial biopsies of a mass were performed in the lateral basal segment of the left lower lobe using a forceps and sent for histopathology examination. 7 were obtained. Brushings of a mass were obtained in the lateral basal segment of the left lower lobe with a cytology brush and sent for routine cytology. One sample was obtained. Impression: - Lung mass suspicious for cancer - The airway examination was normal. - Endobronchial ultrasound was performed. - Systematic lymph node sizing, sampling, ultrasound visualization and preliminary cytology was performed. Tissue was obtained from this exam, and results are pending. However, the endosonographic appearance is benign inflammatory changes. - An endobronchial biopsy was performed. - Brushings were obtained. Recommendation: - The patient will be observed post-procedure, until all discharge criteria are met. - Await biopsy, brushing and cytology results. - Patient has a contact number available for emergencies. The signs and symptoms of potential delayed complications were discussed with the patient. Return to normal activities tomorrow. Written discharge instructions were provided to the patient. Procedure Code(s): --- Professional --- 13374, Bronchoscopy, rigid or flexible, including fluoroscopic guidance, when performed; with endobronchial ultrasound (EBUS) guided transtracheal and/or transbronchial sampling (eg, aspiration[s]/biopsy[ies]), 3 or more mediastinal and/or hilar lymph node stations or structures 65212, Bronchoscopy, rigid or flexible, including fluoroscopic guidance, when performed; with bronchial or endobronchial biopsy(s), single or multiple sites 20464, Bronchoscopy, rigid or flexible, including fluoroscopic guidance, when performed; with brushing or protected brushings Diagnosis Code(s): --- Professional --- R91.8, Other nonspecific abnormal finding of lung field CPT copyright 2017 [employer]. All rights reserved. The codes documented in this report are preliminary and upon urban planner review may be revised to meet current compliance requirements. MD Miguel Escamilla MD 01/29/2021 1:45:24 PM This report has been signed electronically. Number of Addenda: 0 Note Initiated On: 01/29/2021 11:42 AM
== END 2021-01-29 14:30 | disposition home or self-care (01) ==
LOC: EN 10:51 → AC 10:53
PROVIDERS: PCP Family Medicine; Referring Provider Family Medicine; Visit Provider Internal Medicine Critical Care Medicine
PROC: BB4BZZZ Ultrasonography of Pleura (ICD-10-PCS; CPT 31623; principal; 2021-01-29 11:30)
DX: R91.8 Other nonspecific abnormal finding of lung field (principal); E78.00 Pure hypercholesterolemia, unspecified; M06.9 Rheumatoid arthritis, unspecified; F17.210 Nicotine dependence, cigarettes, uncomplicated; Z79.899 Other long term (current) drug therapy
CPT/HCPCS: 31623; 31625; 31653; 88161; 88172; 88305; 88313; 94640; J7120; J2405

== ENCOUNTER 2021-04-19 08:56 | Day surgery (SDC) | payer MEDICAID, SELFPAY ==
[2021-04-19 09:50] VITALS: BP 151/73; PULSE 66; RESP 16; TEMP 37.2; O2SAT 100; BMI 29.1
[2021-04-19] MEDS: Lactated Ringers 1,000 ML 100 ML IV (09:57)
--- NOTE | 2021-04-19 10:31 | PCM.HP.BLA ---
History and Physical Date of Admission: 04/19/21 Date of Service: 04/13/21 MR#:[id number]: ANNA MALIN #:[id number]:[id number] Provider:Chase Benavidez/Sex: 60/F 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 Is patient in pain?: No Allergies meperidine [From Demerol] Allergy (Severe, Verified 04/13/21 09:26) Itching Is last menstrual period known: No Post menopausal: Yes Patient : No PFSH Medical History Anxiety Arthritis Back pain Cancer of upper lobe of left lung Chronic cough Chronic neck and back pain COPD (chronic obstructive pulmonary disease) Degenerative joint disease High cholesterol History of diverticulitis History of edema Hx of fracture of wrist Hyperlipidemia Injury of head and neck Leg cramps Marijuana use Osteoporosis Shortness of breath on exertion Smoker Vertigo Wears dentures Wears glasses Surgical History History of colonoscopy History of hysterectomy History of lobectomy of lung History of surgery on arm History of thyroid surgery Family History Mother Lung cancer Father Diabetes Social History household members: spouse Smoking Status: Former smoker Tobacco: How many years used: 45 how long ago did patient quit smokin day ago second hand exposure: Yes alcohol intake: never substance use type: marijuana bolivar/scientology: Faith seatbelt use: always do you feel safe at home: Yes HPI HPI HPI: ANNA MALIN, is a 60 F who presents to the office today for consideration of port placement. Patient was diagnosed with lung cancer of the left upper lobe after routine CT imaging given her history of smoking (she states that she was relatively asymptomatic other than a chronic cough). She subsequently underwent VATS left upper lobectomy with Dr Greco on 02/25/2021 in [facility]. She states her recovery from the surgery has largely been uneventful although she still has some postoperative pains. She did not require supplemental oxygen after the operation. They have met with oncology and plans are to begin chemotherapy soon as a precaution given some pleural invasion by the tumor, but a specific date has not been set. Patient has no prior history of central line placement. Patient has no pacemaker or intracardiac defibrillator. Patient has no renal dysfunction and are not on hemodialysis. She has no history of skin, or specifically staph infections. Mrs. Malin is not currently prescribed blood thinners. ROS General General: No weight change, appetite, fatigue, colon cancer, breast cancer or weakness HEENT HEENT: No difficulty swallowing, eye injury, eye surgery, swollen glands or hoarseness Endo Endocrine: No thyroid disease, diabetes mellitus, thyroid cancer, Hair loss, heat intolerance or cold intolerance Musc Musculoskeletal: Yes back problems and arthritis; No rheumatoid arthritis, gout or joint pain Cardio Cardiovascular: No murmur, pacemaker, heart disease, atrial fibrillation, high blood pressure, heart attack, heart stent, palpitations, shortness of breat with exertion or chest pain Psych Psychiatric: Yes anxiety; No depression or hearing voices Resp Respiratory: Yes shortness of breath, No sleep apnea, No cough, Yes COPD, No asthma, Yes emphysema and No wheezing Gastro Gastrointestinal: No abdominal pain, No nausea or vomiting, No diarrhea, No constipation, No blood in stool, No acid reflux, No hemorrhoids, No ulcers, No gallbladder problem and No black,tarry stools Gigi Hematologic: No blood thinners, No blood disorders, No bleeding, No anemia and No blood clots Neuro Neurologic: No weakness Exam Const General: cooperative, healthy appearing and no acute distress Orientation: alert, awake and oriented x3 Chest Other: Small (~1.5 cm) longitudinal scar from prior scratching, otherwise no scars or rashes. Resp Effort & Inspection: normal respiratory effort Auscultation: clear to auscultation bilaterally, no rales, no rhonchi and no wheezes Cardio Rate: regular rate Heart Sounds: S1 normal and S2 normal Assessment and Plan Assessment and Plan (1) Cancer of upper lobe of left lung: Status: Acute Comment: This is a 60-year-old female status post VATS left upper lobectomy for left upper lobe lung cancer. Given some pleural invasion, oncology has recommended adjuvant chemotherapy and patient requires durable central venous access. She has no history of prior central lines, defibrillators, or compromise renal function. Given that the patient is left-handed and had a prior left-sided surgery would recommend proceeding with right versus left central venous catheter placement. Patient was provided detailed information regarding the procedure and postoperative expectations. All questions were answered from her and her . Plan - Dr. Nikko Argueta MD: Ultrasound?guided right versus left Mediport placement next week under local MAC. Coding Level of Care Code Off vis,est,level 3 Diagnoses Cancer of upper lobe of left lung C34.12 Insert H&P no changes. Proceed with planned ultrasound?guided port placement for adjuvant chemotherapy following VATS left upper lobectomy.
[2021-04-19] MEDS: Cefazolin 2 GM in 0.9% Normal Saline 100 ML IV (10:35)
[2021-04-19] MEDS: Bupivacaine Mpf 0.5% 30 ML VIAL (10:59)
[2021-04-19 11:53] VITALS: BP 145/88; BP 151/73; PULSE 67; RESP 16; TEMP 36.3; O2SAT 100
[2021-04-19 11:55] VITALS: BP 151/73; BP 152/89; PULSE 66; RESP 16; O2SAT 100
[2021-04-19 12:00] VITALS: BP 151/73; BP 152/93; PULSE 64; RESP 16; O2SAT 100
--- NOTE | 2021-04-19 12:00 | RAD_ITS ---
STUDY: X-RAY CHEST REASON FOR EXAM: Female, 60 years old. s/p R IJ port TECHNIQUE: Single AP portable view of the chest. COMPARISON: Comparison is made with prior examination 04/13/2021. FINDINGS: A right-sided Port-A-Cath has been placed. The tip is in the midportion of the superior vena cava. Stable bilateral loss in the left hemithorax with evidence of prior left upper lobectomy. Stable postoperative changes with blunting of the left costophrenic angle. The right lung is clear. Normal size heart. Normal mediastinum and wilber. Normal visualized pulmonary arteries. Normal visualized aortic arch and descending thoracic aorta. Normal visualized thoracic spine. Normal visualized ribs, clavicles, and shoulders. There is no demonstrated abnormality of the visualized soft tissue structures of the upper abdomen. RAD/CXR for Line Placement IMPRESSION: The tip of the right-sided portacatheter is in the midportion of the superior vena cava. Stable postsurgical changes in the left hemithorax with volume loss and blunting of the left costophrenic angle. Electronically Signed: David Brar MD at 12:38 EDT , Service support ,
[2021-04-19 12:08] VITALS: BP 151/73; BP 154/81; PULSE 72; RESP 16; TEMP 36.2; O2SAT 98
--- NOTE | 2021-04-19 12:47 | OP.PCM_ITS ---
Report of Operation Date of Procedure: 04/19/21 Pre-Operative Diagnosis: Lung carcinoma s/p VATS lobectomy requiring adjuvant c hemotherapy Post-Operative Diagnosis: Same Surgery/Procedure Performed:: Ultrasound?guided placement of right internal jugular Mediport Description of Surgical Findings:: ?Normal vascular anatomy with apparent septation versus common wall between the internal jugular vein and brachiocephalic vein on the right ?Catheter terminating within the superior vena cava Surgeon: Nikko Argueta engineering geologist: None Type of Anesthesia: Local MAC Anesthesiologist: Drew Ram Special Medications: Heparinized saline Estimated Blood Loss (mL): 10 Description of Procedure: After appropriate identification in the preoperative holding area the patient was brought to the operating room. There she was administered preoperative antibiotics and positioned supine on the operating room table. An ultrasound was performed quickly of the right neck to confirm patency of the right internal jugular vein. Once sedation was begun, the upper chest and lower cervical region were prepped and draped in usual sterile fashion. A formal timeout was then conducted to confirm both the patient and procedure. Ultrasound was used to localize the right internal jugular vein. Then a wheal of half percent bupivacaine was raised superficially in this location and a stab incision with a scalpel was made overlying the position of the vein. The vein was accessed under direct ultrasound guidance using a Seldinger technique to place a guidewire. The position of the guidewire within the right atrium was confirmed with fluoroscopy. Next the position of the port pocket was determined 1 fingerbreadth below the clavicle and, again, local anesthetic was used to anesthetize the area of both the pocket and the tunneling cephalad. A transverse incision 3 cm in width was made down through the subcutaneous tissue. Selective electrocautery was used to obtain hemostasis. Then with blunt dissection the port pocket was developed. The catheter was connected to the tunneler and was tunneled up to the position of the guidewire. Here the dilator and peel-away sheath were placed over the guidewire and the guidewire was removed. Position was again confirmed with fluoroscopy. The catheter length was estimated based on the external anatomic landmarks of the [place] and the catheter was fed into the peel-away sheath. The peel- away sheath was then broken and the catheter was fed into the vein at a depth of approximately 15 cm. A fluoroscopy picture was obtained and showed the catheter tip to be deeply within the right atrium so the catheter was slowly and systematically withdrawn until it resided in the superior vena cava. Back in the chest the excess catheter was trimmed and the port was connected to the catheter. The port was tied into the pocket using 3-0 Prolene. Function was then confirmed with an aspiration and flush using sterile saline on a Rojas needle. It was locked with 4 mL of heparinized saline. The port pocket was closed with a deep dermal stitch using a running 3-0 Vicryl followed by 4-0 Monocryl subcuticular stitch. The 1 cm incision in the neck was closed with a single interrupted subcuticular stitch using 4-0 Monocryl. Dermabond was applied as a dressing. Patient was then aroused from the sedation and taken to PACU for ongoing recovery were a portable chest x-ray was obtained to confirm port positioning and exclude any pneumothorax. Complications None Procedures Cardiovascular CF Procedures [id number]: [id number] Insert tunneled cv cath
--- NOTE | 2021-04-19 12:47 | EX.PCM.DISCH ---
Discharge Instructions Diet Discharge Diet: No restrictions Activity Discharge Activity: Return to Normal Activity Ice area for (Minutes): 20 Lifting Restrictions: Limit lifting for the first week after surgery to nothing more than 15lbs Dressing / Incision Call your doctor if your incision/area has: Increased Redness and Swelling at the incision site Call your doctor if you observe: Fever of 101 or Higher, Coldness, Increased Pain and Numbness or Tingling Suture Line Care: Avoid Pulling/Pushing Change Dressing in: do not change dressing Cleanse incision/area with: Soap & Water Additional Dressing/Incision Instructions:: Please keep area clean and dry Follow Up Care Test Results: Test results from this visit will be discussed in further detail at your follow-up appointment, if applicable. Discharge Plan Admission Primary Reason for Your Visit: Placement of right-sided Mediport for adjuvant chemotherapy Attending Provider: Nikko Argueta Primary Care Provider: Narciso Chávez Instructions Patient Instructions: Caring for Your Central Vein Access Discharge Orders/Prescriptions Prescriptions: No Action rosuvastatin 10 mg tablet 10 mg PO QHS RF: 0 duloxetine [Cymbalta] 60 mg capsule,delayed release(DR/EC) 60 mg PO DAILY RF: 0 meloxicam 15 mg tablet 15 mg PO DAILY RF: 0 tizanidine 4 mg capsule 4 mg PO TID PRN (Reason: MUSCLE RELAXER) RF: 0 ibandronate [Boniva] 150 mg tablet 150 mg PO QMONTH RF: 0 psyllium husk [Daily Fiber] 0.4 gram capsule 0.4 g PO DAILY RF: 0 methocarbamol 500 mg tablet 500 mg PO TID PRN PRN (Reason: Pain) RF: 0 oxycodone-acetaminophen 5-325 mg tablet 1 tab PO Q6H PRN (Reason: Pain) RF: 0 prochlorperazine maleate 10 mg tablet 10 mg PO Q6H PRN (Reason: nausea and vomiting) Qty: 30 RF: 2 ondansetron 8 mg tablet,disintegrating 8 mg PO Q8H PRN (Reason: nausea and vomiting) Qty: 30 RF: 2 lidocaine-prilocaine 2.5-2.5 % cream 1 applic topical ONCE PRN (Reason: port access) 30 Days Qty: 30 RF: 2 dexamethasone 4 mg tablet 4 mg PO BID 21 Days Qty: 6 RF: 3 folic acid 1 mg tablet 1 mg PO DAILY Qty: 90 RF: 1 calcium carbonate [Calcium 600] 600 mg calcium (1,500 mg) Tablet 600 mg PO DAILY RF: 0 cholecalciferol (vitamin D3) [Vitamin D3] 25 mcg (1,000 unit) Capsule 25 mcg PO DAILY RF: 0 melatonin 10 mg Tablet 10 mg PO QHS RF: 0 Referrals / Follow Up: Narciso Chávez MD [Primary Care Provider] - Disposition Disposition (needs filled in before D/C Order can be placed): Home, Self Care
[2021-04-19 13:05] VITALS: BP 151/73; BP 151/82; PULSE 61; RESP 16; TEMP 36.6; O2SAT 97
== END 2021-04-19 13:20 | disposition home or self-care (01) ==
LOC: SDC 08:59 → AC 09:00
PROVIDERS: PCP Family Medicine; Referring Provider Surgery; Visit Provider Surgery
PROC: (CPT 36561; principal; 2021-04-19 10:15)
DX: Z45.2 Encounter for adjustment and management of vascular access device (principal); C34.12 Malignant neoplasm of upper lobe, left bronchus or lung; J44.9 Chronic obstructive pulmonary disease, unspecified; E78.00 Pure hypercholesterolemia, unspecified; M19.90 Unspecified osteoarthritis, unspecified site; M81.0 Age-related osteoporosis without current pathological fracture; Z90.2 Acquired absence of lung [part of]; Z79.899 Other long term (current) drug therapy; Z87.891 Personal history of nicotine dependence; Z80.1 Family history of malignant neoplasm of trachea, bronchus and lung
CPT/HCPCS: 00532; 36561; 71045; 77001; J7120; C1788

== ENCOUNTER → 2021-04-23 05:10 | Outpatient (CLI) | payer MEDICAID, SELFPAY ==
--- NOTE | 2021-04-23 16:54 | MRI_ITS ---
EXAM: MR HEAD WITHOUT AND WITH INTRAVENOUS CONTRAST CLINICAL INDICATION: STAGING NSCLC TECHNIQUE: Multiplanar and multisequence MR images of the brain were obtained without and with intravenous contrast. This report was created using [employer] report generation technology. CONTRAST: IV DOTAREM 15ML COMPARISON: None. FINDINGS: BRAIN AND EXTRA-AXIAL SPACES: Increased FLAIR regions in the brain may signify early microvascular ischemic changes, a demyelinating process, vasculitis, or sequela related to migraines. No intra- or extra-axial hemorrhage. No intracranial mass or mass effect. Posterior fossa structures are unremarkable. Ventricles are appropriate for age. No hydrocephalus. Basal cisterns are patent. SELLA: Unremarkable. Normal sella turcica, pituitary gland, infundibular stalk, optic chiasm and hypothalamus. AUDITORY SYSTEM: Unremarkable. The internal auditory canals are patent. BONES/JOINTS: Unremarkable. No discrete lytic or blastic abnormalities. SINUSES: Unremarkable as visualized. Clear. MASTOID AIR CELLS: Unremarkable as visualized. Clear. ORBITS: Unremarkable as visualized. Both globes, extraocular muscles, optic nerves and retrobulbar fat appear unremarkable. VASCULATURE: Unremarkable as visualized. Normal flow voids in the major intracranial circulation. OTHER FINDINGS: There are no enhancing lesions. MRI/Brain W/WO Contrast IMPRESSION: Increased FLAIR regions in the brain may signify early microvascular ischemic changes, a demyelinating process, vasculitis, or sequela related to migraines. Electronically Signed: Luigi Herbert MD at 19:09 EDT , Service support ,
== END ==
PROVIDERS: PCP Family Medicine; Referring Provider Internal Medicine Hematology & Oncology; Visit Provider Internal Medicine Hematology & Oncology
DX: C34.12 Malignant neoplasm of upper lobe, left bronchus or lung (principal)
CPT/HCPCS: 70553; A9575

== ENCOUNTER → 2021-06-01 07:45 | Outpatient (CLI) | payer MEDICAID, SELFPAY ==
--- NOTE | 2021-06-01 07:46 | CT_ITS ---
STUDY: CTA CHEST REASON FOR EXAM: Female, 60 years old. Left sided back pain + dyspnea r/o PE. The patient is status post partial resection of the left upper lobe. RADIATION DOSAGE (If Supplied By Facility): CTDIvol = ( 8.98 ) mGy, DLP = ( 471.43 ) mGycm TECHNIQUE: The examination was performed with the intravenous administration of IV 100mL Isovue-370. Post-processing of the angiographic images was performed, with multiplanar reformation and 3D reconstruction. Individualized dose optimization techniques were used for this CT. COMPARISON: Comparison is made with prior examination dated 12/10/2020. FINDINGS: A right-sided portacatheter is seen with the tip in the superior vena cava. Normal enhancement of the main pulmonary artery and right and left pulmonary arteries. Normal enhancement of the bilateral peripheral pulmonary arteries. There is no demonstrated pulmonary embolism. Normal thoracic aorta and visualized great vessels. There is no demonstrated aortic dissection. There are calcifications of the coronary arteries. Enlarged subcarinal lymph node as well as a right hilar lymph node measuring 2.5 cm. Normal hilar regions. Normal visualized trachea and bronchi. Volume loss in the left hemithorax with hyperinflation of the right lung. The patient is status post left upper lobectomy with postoperative changes in the left upper lobe. There is evidence of a small left pleural effusion with atelectasis and/or scarring at the left lung base. Diffuse emphysematous changes. Normal chest wall structures. There are degenerative changes of thoracic spine. 50% loss of height of the T10 vertebrae. Dextroscoliosis. Normal visualized upper abdomen. CT/CTA Chest W/WO Contrast IMPRESSION: No significant pulmonary embolism is seen. Status post left upper lobe ectomy with the volume loss in the left hemithorax. Postoperative changes in the left upper lobe. Small left pleural effusion with left basilar atelectasis. Electronically Signed: David Brar MD at 8:50 EST , Service support ,
[2021-06-01] MEDS: 0.9% Saline Lock 10 ML Syringe IV (08:04)
== END ==
PROVIDERS: PCP Family Medicine; Referring Provider Nurse Practitioner Family; Visit Provider Nurse Practitioner Family
DX: J90 Pleural effusion, not elsewhere classified (principal); M54.50 Low back pain, unspecified
CPT/HCPCS: 71275; Q9967; A4216

== ENCOUNTER 2021-08-23 12:45 | Outpatient (CLI) | payer MEDICAID, SELFPAY ==
[2021-08-23 13:00] LABS: CREATININE FINGERSTICK < 0.6 mg/dL (0.55-1.02); EGFR FINGERSTICK > 60.0000 mL/min (>60)
--- NOTE | 2021-08-23 13:00 | CT_ITS ---
STUDY: CT CHEST T ABDOMEN WITH CONTRAST REASON FOR EXAM: Female, 61 years old. NSCLC S/P MARII LOBECTOMY RESTAGING AFTER CHEMO RADIATION DOSAGE (If Supplied By Facility): CTDIvol = ( 13.53 ) mGy, DLP = ( 874.20 ) mGycm TECHNIQUE: Transaxial imaging was performed following intravenous administration of IV 100mL Isovue-300. Individualized dose optimization techniques were used for this CT. COMPARISON: Comparison is made with prior study dated 06/01/2021. FINDINGS: CHEST Small benign appearing bilateral axillary lymph nodes. A right-sided portacatheter is seen with the tip in the superior vena cava. The patient is status post left upper lobectomy with volume loss in the left upper lobe as well as the left hemithorax. This is unchanged. Mild degree of residual increased linear markings at the left lung base suggesting mild atelectasis and/or scarring. The previously seen left pleural effusion has resolved. There is hyperinflation of the right lung. There are calcifications of the coronary arteries. Normal mediastinum. Stable enlargement of the right hilar lymph node. It presently measures 1.5 cm. Interval decrease in size of the subcarinal lymph node. Normal unenhanced pulmonary arteries. Mild degree of atherosclerotic changes of the aortic arch. There are multi-level degenerative changes of the thoracic spine. Stable loss of height of the T10 vertebrae. Dextroscoliosis. ABDOMEN Normal liver. Normal gallbladder and extrahepatic biliary system. Normal spleen. Normal pancreas. Normal bilateral adrenal glands. Normal right kidney. Normal left kidney. Normal visualized stomach. Normal small intestine. Normal colon. The appendix is visualized and appears normal. There is scattered atherosclerotic calcification of the abdominal aorta, without a demonstrated aneurysm. Normal inferior vena cava. Normal retroperitoneum. Normal abdominal wall. There are diffuse degenerative changes of the visualized lumbar spine. CT/CT Chest AND Abd W/ Contrast IMPRESSION: Status post left upper lobectomy with loss of volume in the left hemithorax. Mild scarring at the left lung base. Interval decrease in size of the right hilar lymph node and subcarinal lymph node. Electronically Signed: David Brar MD at 14:51 EST ,
[2021-08-23] MEDS: 0.9% Saline Lock 10 ML Syringe IV (13:11)
== END 2021-08-23 23:59 | disposition home or self-care (01) ==
LOC: CT 12:48
PROVIDERS: PCP Family Medicine; Referring Provider Internal Medicine Hematology & Oncology; Visit Provider Internal Medicine Hematology & Oncology
DX: C34.90 Malignant neoplasm of unspecified part of unspecified bronchus or lung (principal)
CPT/HCPCS: 71260; 74160; Q9967; A4216

== ENCOUNTER 2021-09-03 12:39 | Outpatient (CLI) | payer MEDICAID, SELFPAY ==
--- NOTE | 2021-09-03 12:41 | BI_ITS ---
MAMMOGRAPHY - BILATERAL SCREENING 3-D TOMOSYNTHESIS REASON FOR EXAM: Female, 61 years old. SCREENING PERTINENT HISTORY: No significant family history. TECHNIQUE: 2-D mammograms and 3-D Tomosynthesis of the breast (s) were performed. CAD was performed. COMPARISON: 05/26/2020 FINDINGS: The breast composition is heterogeneously dense that can obscure small breast masses. Scattered benign calcifications are seen. No dense spiculated masses or suspicious microcalcifications are identified. No architectural distortion is identified. There is no skin thickening or retraction. There has been no significant change since the prior study. BI/SCRN MAMM (CAD)W/DEBBIE BILAT IMPRESSION: No mammographic signs of malignancy. Routine yearly mammograms recommended. ASSESSMENT CATEGORY: BIRADS Category 1: Negative. A letter regarding these results will be sent to the patient by the facility within 30 days. FOLLOW UP RECOMMENDATION: Yearly follow up mammogram recommended. (A) Approximately 10% of breast cancers are not detected by mammography. A normal mammogram should not delay biopsy of a clinically suspicious abnormality. Electronically Signed: Zach Arceo MD at 13:47 EDT ,
== END 2021-09-03 23:59 | disposition home or self-care (01) ==
LOC: OPBI 12:40
PROVIDERS: PCP Family Medicine; Referring Provider Family Medicine; Visit Provider Family Medicine
DX: Z12.31 Encounter for screening mammogram for malignant neoplasm of breast (principal)
CPT/HCPCS: 77063; 77067

== ENCOUNTER → 2021-10-19 | Outpatient (CLI) | payer MEDICAID, SELFPAY ==
--- NOTE | 2021-10-20 07:01 | PFT ---
INTRODUCTION: The patient is a 61-year-old female that presents for pulmonary function studies secondary to a diagnosis of COPD. Respiratory therapy reported good patient effort. Bronchodilators were used during testing. INTERPRETATION: Forced expiration spirometry demonstrates the presence of a moderate large airways obstructive ventilatory defect. There was a significant response to aerosolized bronchodilators. Spirograms are of good quality but do not plateau indicating slow emptying of the lungs. Body plethysmography was performed and revealed an elevated TLC and RV, indicative of underlying hyperinflation and air trapping. Diffusing capacity by single breath CO is relatively preserved at 79% of predicted. IMPRESSION: Partially reversible moderate large airways obstructive ventilatory defect with associated hyperinflation and air trapping.
== END | disposition home or self-care (01) ==
PROVIDERS: PCP Family Medicine; Referring Provider Internal Medicine Critical Care Medicine; Visit Provider Internal Medicine Critical Care Medicine
DX: J44.9 Chronic obstructive pulmonary disease, unspecified (principal)
CPT/HCPCS: 94060; 94726; 94729

== ENCOUNTER 2022-01-24 11:27 | Emergency (ER) | payer MEDICAID, SELFPAY ==
[2022-01-24 11:28] VITALS: BP 156/91; PULSE 86; RESP 17; TEMP 36.7; O2SAT 97; BMI 26.6
--- NOTE | 2022-01-24 12:52 | ED.VIS.LOWEX ---
HPI History of Present Illness HPI Narrative: Patient presents with pain in her right hip and groin that has been getting worse over the past month. Patient states that it became more severe over the last few days. Patient states her pain starts in her groin and then goes into her hip and buttock. Patient states her pain is worse with any weightbearing. Patient has been using a walker at home. Patient was recently prescribed steroids which have not been helping. Patient was also given a prescription for tizanidine which has not been helping. Patient describes her pain as sharp, stabbing, and aching. Patient denies any falls or direct trauma. Chief Complaint: Lower Extremity Injury Informant: patient Onset/Context/Timing Onset: Weeks Context: Gradual Onset Timing: Continuous Quality of Pain: Sharp, Aching and Stabbing Location: Right hip, groin, and buttock Worsened by: Weightbearing Relieved by: Nothing Associated Symptoms Associated Symptoms: Negative for Parasthesia, Weakness or Loss of Funtion PFSH PFS Medical History Anxiety Arthritis Back pain Cancer of upper lobe of left lung Chronic cough Chronic neck and back pain CINV (chemotherapy-induced nausea and vomiting) Constipation COPD (chronic obstructive pulmonary disease) Degenerative joint disease Easy bruising Encounter for education Encounter for screening colonoscopy Exertional dyspnea Flu vaccine need High cholesterol History of diverticulitis History of edema History of primary non-small cell carcinoma of left lung Hx of fracture of wrist Hyperlipidemia Injury of head and neck Left low back pain Leg cramps Marijuana use Osteoporosis Port-A-Cath in place Shortness of breath on exertion Smoker Vertigo Wears dentures Wears glasses Home Medications duloxetine 60 mg capsule,delayed release (Cymbalta) 60 mg PO DAILY anxiety depression 01/13/21 [History Last Taken 01/28/21 17:00] ibandronate 150 mg tablet (Boniva) 150 mg PO QMONTH 01/13/21 [History Last Taken 01/28/21 17:00] meloxicam 15 mg tablet 15 mg PO DAILY arthritis 01/13/21 [History Last Taken 01/28/21 17:00] psyllium husk 0.4 gram capsule (Daily Fiber) 0.4 g PO DAILY supplement 01/13/21 [History Last Taken 01/28/21 17:00] rosuvastatin 10 mg tablet 10 mg PO QHS cholesterol 01/13/21 [History Last Taken 01/28/21 17:00] tizanidine 4 mg capsule 4 mg PO TID PRN MUSCLE RELAXER 01/13/21 [History Last Taken 01/28/21 17:00] lidocaine-prilocaine 2.5 %-2.5 % topical cream 1 applic topical ONCE PRN port access 30 days #30 grams 04/13/21 [Rx Last Taken Unknown] melatonin 10 mg tablet 10 mg PO QHS sleep 04/15/21 [History Last Taken Unknown] albuterol sulfate 90 mcg/actuation aerosol inhaler (Ventolin HFA) 2 puff inhalation Q4H PRN shortness of breath or wheezing #18 grams 12/13/21 [Rx Last Taken Unknown] budesonide-formoterol HFA 160 mcg-4.5 mcg/actuation aerosol inhaler (Symbicort) 2 puff inhalation BID #1 ea 12/15/21 [Rx Last Taken Unknown] tiotropium bromide 2.5 mcg/actuation mist for inhalation (Spiriva Respimat) 2 inh inhalation QDAY #1 ea 12/15/21 [Rx Last Taken Unknown] hydrocodone-acetaminophen 5-325mg 5mg-325mg 1 tab PO Q6H PRN PRN Pain 3 days #10 TABLETS 01/24/22 [Rx Last Taken Unknown] Allergy/AdvReac Type Severity Reaction Status Date / Time meperidine [From Demerol] Allergy Severe Itching Verified 01/24/22 11:27 Family History Mother Lung cancer Father Diabetes Surgical History History of colonoscopy History of hysterectomy History of lobectomy of lung History of surgery on arm History of thyroid surgery Social History household members: spouse Smoking Status: Current some day smoker tobacco type: cigarettes Tobacco: How many years used: 45 how long ago did patient quit smokin day ago second hand exposure: Yes alcohol intake: never substance use type: marijuana bolivar/amish: Orthodoxy seatbelt use: always do you feel safe at home: Yes ROS ROS ED Constitutional Constitutional ED: Denies chills or fever(s) Eyes Eyes: Denies blurry vision or change in vision ENT ENT ED: Denies rhinorrhea or sore throat Cardiovascular Cardiovascular: Denies chest pain or palpitations Respiratory/Chest Respiratory/Chest: Reports cough; Denies dyspnea Gastrointestinal Gastrointestinal: Denies nausea or vomiting Genitourinary Genitourinary ED: Denies dysuria or hematuria Musculoskeletal Musculoskeletal: Reports back pain; Denies neck pain Integumentary Denies abscess or rash Neurologic Neurologic: Denies headache(s) or weakness Allergic/Immunologic Allergic/Immunologic ED: Denies mouth swelling or urticaria EXAM Physical Exam Const Vital Signs: 01/24/22 11:28 Temperature 98.1 F Temperature Source Temporal Pulse Rate 86 Respiratory Rate 17 Blood Pressure 156/91 H Blood Pressure Mean 112 Pulse Ox 97 Oxygen Delivery Method Room Air Positive well nourished and well developed General Appearance ED: well developed and NAD HEENT Reports moist mucous membranes Neck full ROM and supple Extremity normal to inspection Extremity Narrative: There is tenderness over the right hip and inguinal area. There is also tenderness over the right sacroiliac joint. There is no bony crepitance or step-off. Range of motion was limited in all motions of the right hip secondary to pain. Sensation was intact to light touch bilaterally in the lower extremities. Pedal pulses are equal bilaterally. Strength is 5/5 bilaterally in the lower extremities. Neuro oriented x3, CN's II-XII intact bilaterally, moves all extremities and no sensory deficits noted Sensorium / Orientation: alert Motor Exam: strength 5/5 throughout Skin no wounds MDM MDM MDM Narrative Medical decision making narrative: Patient was given injections of Toradol and morphine here. X-rays of the right hip were obtained. There are 3 views. On my interpretation, there is no acute fracture. There is no dislocation. There is no soft tissue swelling. There are mild degenerative changes. Radiologist also interpreted the x-rays and agrees. Patient was advised of her findings. Patient was instructed to use ice to the area. Patient was given a prescription for a short course of [place]. Patient was instructed to continue her meloxicam as prescribed. Patient was instructed to follow-up with her primary care physician in 3-5 days for reevaluation. Patient understood and was agreeable with the plan. All questions were answered. Radiography X-Ray: Right Hip, Read by ED Physician, Read by Radiologist, No Fracture and DJD Diagnostic Testing: Clinical Impression(s) from Imaging Studies Hip/Pelvis X-Ray 01/24/22 13:25 IMPRESSION: Degenerative changes. No acute abnormality is seen. Electronically Signed: David Brar MD at 13:58 EDT , Discharge Plan Triage Chief Complaint: Lower Extremity Injury ED Provider: Ty Davis Dx/Rx/DC Orders Clinical Impression: Strain of right hip, Cancer of upper lobe of left lung, Smoker Instructions: ED Hip Strain Prescriptions: New hydrocodone-acetaminophen [hydrocodone-acetaminophen] 5-325 mg tablet 1 tab PO Q6H PRN PRN (Reason: Pain) 3 Days Qty: 10 0RF No Action rosuvastatin 10 mg tablet 10 mg PO QHS duloxetine [Cymbalta] 60 mg capsule,delayed release(DR/EC) 60 mg PO DAILY meloxicam 15 mg tablet 15 mg PO DAILY tizanidine 4 mg capsule 4 mg PO TID PRN (Reason: MUSCLE RELAXER) ibandronate [Boniva] 150 mg tablet 150 mg PO QMONTH psyllium husk [Daily Fiber] 0.4 gram capsule 0.4 g PO DAILY lidocaine-prilocaine 2.5-2.5 % cream 1 applic topical ONCE PRN (Reason: port access) 30 Days Qty: 30 2RF albuterol sulfate [Ventolin HFA] 90 mcg/actuation HFA aerosol inhaler 2 puff inhalation Q4H PRN (Reason: shortness of breath or wheezing) Qty: 18 6RF melatonin 10 mg Tablet 10 mg PO QHS budesonide-formoterol [Symbicort] 160-4.5 mcg/actuation HFA aerosol inhaler 2 puff inhalation BID Qty: 1 3RF Rx Instructions: administer with spacer, rinse mouth after each use Spiriva Respimat 2.5 mcg/actuation mist 2 inh inhalation QDAY Qty: 1 6RF Rx Instructions: administer at approximately the same time(s) each day Primary Care Provider: Narciso Chávez Referrals: Narciso Chávez MD [Primary Care Provider] - 3-5 Days Disposition Disposition: Home, Self Care
[2022-01-24] MEDS: Ketorolac 30 MG/ML Syringe IM (13:11)
[2022-01-24] MEDS: Morphine 4 MG/ML Syringe IM (13:11)
--- NOTE | 2022-01-24 13:25 | RAD_ITS ---
STUDY: X-RAY - PELVIS AND RIGHT HIP REASON FOR EXAM: Female, 61 years old. Injury/Pain TECHNIQUE: 3 views of the pelvis and hip. COMPARISON: None. FINDINGS: There is a non-specific bowel gas pattern. There are multiple calcified phleboliths. Normal bilateral iliac wings, sacroiliac joints and visualized sacrum. Normal bilateral superior and inferior pubic rami. There are degenerative changes of the pubic symphysis with articular narrowing and sclerosis. Normal bilateral ischial tuberosities. This space narrowing and spondylosis in the lower lumbar spine. Normal visualized femoral head. There is osteoarthritic spur formation of the acetabular rim. There is mild articular joint space narrowing of the hip. RAD/HIP, UNI W/ Pelvis 2-3 Views IMPRESSION: Degenerative changes. No acute abnormality is seen. Electronically Signed: David Brar MD at 13:58 EDT ,
== END 2022-01-24 15:48 | disposition home or self-care (01) ==
PROVIDERS: Emergency Provider Emergency Medicine; PCP Family Medicine; Visit Provider Emergency Medicine
DX: S76.011A Strain of muscle, fascia and tendon of right hip, initial encounter (principal); C34.12 Malignant neoplasm of upper lobe, left bronchus or lung; J44.9 Chronic obstructive pulmonary disease, unspecified; X58.XXXA Exposure to other specified factors, initial encounter; E78.00 Pure hypercholesterolemia, unspecified; F17.210 Nicotine dependence, cigarettes, uncomplicated; Z79.899 Other long term (current) drug therapy
CPT/HCPCS: 73502; 96372; 99282

== ENCOUNTER → 2022-02-24 | Outpatient (CLI) | payer MEDICAID, SELFPAY ==
--- NOTE | 2022-02-24 12:28 | CT_ITS ---
STUDY: CT CHEST WITH CONTRAST REASON FOR EXAM: Female, 61 years old. h/o NSCLC. Prior left upper lobe resection. RADIATION DOSAGE (If Supplied By Facility): CTDIvol = ( 10.87 ) mGy, DLP = ( 300.15 ) mGycm TECHNIQUE: Transaxial imaging was performed following intravenous administration of IV 100mL Isovue-300. Multiplanar coronal and sagittal images were reformatted. Individualized dose optimization techniques were used for this CT. COMPARISON: Comparison is made with prior study dated 08/23/2021. FINDINGS: CHEST A right-sided portacatheter is seen. The tip is in the superior vena cava. The patient is status post left upper lobectomy with shift towards the left side incompletely filled postsurgical changes. There is less postoperative fluid collection in the left upper lobe as compared to prior study. Mild degree of the emphysematous changes. There is hyperinflation of the right lung. There is no demonstrated pleural abnormality. There are calcifications of the coronary arteries. Normal mediastinum. Normal hilar regions. Normal unenhanced pulmonary arteries. Normal aorta arch and descending thoracic aorta. There are multi-level degenerative changes of the thoracic spine. Stable loss of height of the T10 vertebrae. Dextroscoliosis. There is no demonstrated abnormality of the visualized upper abdomen. CT/Chest WITH Contrast IMPRESSION: Status post left upper lobectomy. No acute abnormality is seen. Electronically Signed: David Brar MD at 14:22 EDT ,
[2022-02-24 12:50] LABS: CREATININE FINGERSTICK < 0.9 mg/dL (0.55-1.02); EGFR FINGERSTICK > 60.0000 mL/min (>60)
[2022-02-24] MEDS: 0.9 % NaCl (Sterile) Posiflush 10 mL IV (13:00)
[2022-02-24 13:06] LABS: Absolute Lymphocyte Count 1.38 X10^3/uL (0.83-4.51); Absolute Neutrophil Count 3.8 X10^3/uL (2.0-7.7); Basophil# 0.02 X10^3/uL; Basophil% 0.3 % (0-1); Eosinophil# 0.04 X10^3/uL; Eosinophils% 0.7 % (0-5); Hematocrit 35.8 % (37-47); Hemoglobin 12.6 g/dL (12.0-15.0); Lymphocyte # 1.38 X10^3/ul (0.83-4.51); Mean Corp Hgb Conc 35.2 g/dL (32-36); Mean Corpuscular Hgb 33.3 pg (27.0-32.0); Mean Corpuscular Volume 94.7 fL (81-99); Mean Platelet Vol. 8.9 fl (6.2-12.0); Monocyte# 0.45 X10^3/uL; Monocyte% 7.8 % (0-10); NRBC Flagged by Analyzer 0 % (0-5); Neutrophil # 3.83 X10^3/uL (2.7-7.7); Neutrophil % 66.7 % (47-70); Platelet Count 202 K/mm3 (150-450); RBC Distribution Width CV 14.1 % (11.6-14.6); RBC Distribution Width SD 49.1 fl (35.1-43.9); Red Blood Count 3.78 M/mm3 (4.2-5.4); White Blood Count 5.8 K/mm3 (4.4-11.0)
[2022-02-24 13:23] LABS: ALB/GLOB Ratio 1.2 RATIO (0.9-2.4); AST(SGOT) 13 U/L (15-37); Alanine Aminotransfer ALT/SGPT 19 U/L (13-56); Albumin, Serum 3.2 g/dL (3.2-5.0); Alkaline Phosphatase 137 U/L (45-117); Anion Gap 6 (5-15); BUN 7 mg/dL (7-18); BUN/Creat Ratio 12.7 RATIO (10-20); Calcium,Total 8.4 mg/dL (8.5-10.1); Chloride 99 mmol/L (98-107); Creatinine, Serum 0.55 mg/dL (0.55-1.02); EST Glomerular Filtration Rate 119 mL/min (>60); Est Glom Filt Rate - Afr Amer 144 mL/min (>60); Globulin 2.6 g/dL (2.2-4.2); Glucose 86 mg/dL (74-106); Potassium 3.6 mmol/L (3.5-5.1); Protein, Total 5.8 g/dL (6.4-8.2); Sodium Level 131 mmol/L (136-145)
== END | disposition home or self-care (01) ==
LOC: CT 12:27
PROVIDERS: PCP Family Medicine; Referring Provider Nurse Practitioner Family; Visit Provider Nurse Practitioner Family
DX: Z85.118 Personal history of other malignant neoplasm of bronchus and lung (principal)
CPT/HCPCS: 71260; 80053; 85025; Q9967; A4216

== ENCOUNTER → 2022-03-09 | Outpatient (CLI) | payer MEDICAID, SELFPAY ==
--- NOTE | 2022-03-09 09:32 | NM_ITS ---
CLINICAL: Female, 61 years old. Increasing hip pain WHOLE BODY NUCLEAR BONE SCAN TECHNIQUE: Following the IV administration of mCi of Tc MDP, whole body bone imaging was performed with a gamma camera following a three hour delay. COMPARISON STUDIES : NM - None. CR - 01/24/2022 CT - Not available for review at this time. MR - Not available for review at this time. US - Not available for review at this time. FINDINGS: Radiotracer activity is noted throughout the skeleton, in both kidneys and the bladder. There is symmetrically increased activity in both SI joints to suspect SI joint arthrosis. Additionally, there are areas of symmetric activity within both shoulder joints, medial compartments of the knee joints and in both feet to suspect arthrosis. No asymmetric or irregular activity noted within the ribs, vertebral bodies or long bones to suspect a fracture or suspicious osseous lesion. There is a mild scoliotic curvature in the thoracic and lumbar spine with subtle areas of increased activity to suspect active sclerosis. NM/Bone Scan Whole Body IMPRESSION: No suspicious increased activity to suspect metastasis or fracture Scattered areas of symmetric activity within the SI joints, as well as both shoulders and medial compartments of both knee joints is suspected arthrosis. Scoliotic curvature in the thoracolumbar spine with subtle areas of increased activity to suspect active sclerosis. Electronically Signed: Gael Atkins MD at 13:11 EDT ,
[2022-03-09] MEDS: 0.9% Saline Lock 10 ML Syringe IV (09:45)
== END | disposition home or self-care (01) ==
LOC: NM 09:28
PROVIDERS: PCP Family Medicine; Referring Provider Internal Medicine Hematology & Oncology; Visit Provider Internal Medicine Hematology & Oncology
DX: M25.551 Pain in right hip (principal); C34.12 Malignant neoplasm of upper lobe, left bronchus or lung
CPT/HCPCS: 78306; A9503; A4216

== ENCOUNTER 2022-04-08 09:05 | Day surgery (SDC) | payer MEDICAID, SELFPAY ==
[2022-04-08] VITALS (7 sets, daily range): BP systolic 86–131; BP diastolic 62–86; PULSE 65–78; RESP 16; TEMP 36.3–36.9; O2SAT 95–100; BMI 26.1
[2022-04-08] MEDS: Lactated Ringers 1,000 ML 15 ML IV (09:41)
--- NOTE | 2022-04-08 09:51 | H&P.OPEN ---
HPI - General HPI Narrative ANNA AMLIN, is a 61 F who presents for screening colonoscopy. Patient reports her last colonoscopy was over 10 years ago. She has no abdominal pain or family history of colon cancer. No blood in the stool. [facility] Medical History (Updated 04/06/22 @ 10:28 by Rosy Goldstein) Anxiety Arthritis Asthma Back pain Cancer Cancer of upper lobe of left lung Chronic cough Chronic neck and back pain CINV (chemotherapy-induced nausea and vomiting) Colon polyps Constipation COPD (chronic obstructive pulmonary disease) Degenerative joint disease Easy bruising Encounter for education Encounter for screening colonoscopy Exertional dyspnea Flu vaccine need High cholesterol History of diverticulitis History of edema History of primary non-small cell carcinoma of left lung Hx of fracture of wrist Hyperlipidemia Injury of head and neck Left low back pain Leg cramps Marijuana use Oral candidiasis Osteoporosis Port-A-Cath in place Post-menopausal Restless legs Shortness of breath on exertion Smoker Vertigo Wears dentures Wears glasses Home Medications duloxetine 60 mg capsule,delayed release (Cymbalta) 60 mg PO DAILY anxiety depression 01/13/21 [History Last Taken 01/28/21 17:00] ibandronate 150 mg tablet (Boniva) 150 mg PO QMONTH 01/13/21 [History Last Taken 01/28/21 17:00] meloxicam 15 mg tablet 15 mg PO DAILY arthritis 01/13/21 [History Last Taken 01/28/21 17:00] psyllium husk 0.4 gram capsule (Daily Fiber) 0.4 g PO DAILY supplement 01/13/21 [History Last Taken 01/28/21 17:00] rosuvastatin 10 mg tablet 10 mg PO QHS cholesterol 01/13/21 [History Last Taken 01/28/21 17:00] tizanidine 4 mg capsule 4 mg PO TID PRN MUSCLE RELAXER 01/13/21 [History Last Taken 01/28/21 17:00] lidocaine-prilocaine 2.5 %-2.5 % topical cream 1 applic topical ONCE PRN port access 30 days #30 grams 04/13/21 [Rx Last Taken Unknown] albuterol sulfate 90 mcg/actuation aerosol inhaler (Ventolin HFA) 2 puff inhalation Q4H PRN shortness of breath or wheezing #18 grams 12/13/21 [Rx Last Taken Unknown] budesonide-formoterol HFA 160 mcg-4.5 mcg/actuation aerosol inhaler (Symbicort) 2 puff inhalation BID #1 ea 12/15/21 [Rx Last Taken Unknown] tiotropium bromide 2.5 mcg/actuation mist for inhalation (Spiriva Respimat) 2 inh inhalation QDAY #1 ea 12/15/21 [Rx Last Taken Unknown] ascorbate calcium (vitamin C) 500 mg tablet 500 mg PO DAILY 03/03/22 [History Last Taken Unknown] biotin 10 mg tablet 10 mg PO DAILY 03/03/22 [History Last Taken Unknown] glucosamine-chondroitin 250 mg-200 mg tablet (Osteo Bi-Flex) 1 tab PO DAILY 03/03/22 [History Last Taken Unknown] potassium gluconate 600 mg (99 mg) tablet 600 mg PO DAILY 03/03/22 [History Last Taken Unknown] cyanocobalamin (vitamin B-12) 1,000 mcg tablet (Vitamin B-12) 1,000 mcg PO DAILY 03/24/22 [History Last Taken Unknown] gabapentin 100 mg capsule 100 mg PO TID 03/24/22 [History Last Taken Unknown] nystatin 100,000 unit/mL oral suspension 5 ml mucous membrane TID #250 mL 03/29/22 [Rx Last Taken Unknown] Allergy/AdvReac Type Severity Reaction Status Date / Time meperidine [From Demerol] Allergy Severe Itching Verified 04/08/22 09:26 Family History Mother Lung cancer Father Diabetes Surgical History History of colonoscopy History of hysterectomy History of lobectomy of lung History of surgery on arm History of thyroid surgery Social History household members: spouse Smoking Status: Current some day smoker tobacco type: cigarettes Tobacco: How many years used: 45 how long ago did patient quit smokin day ago second hand exposure: Yes alcohol intake: never substance use type: marijuana bolivar/yazdanism: Jewish seatbelt use: always do you feel safe at home: Yes Past Medical/Surgical History Planned Operation Planned Operative Procedure/s: C SCOPE Previous Hospitalizations/Surgeries HX Hospitalizations: No Any Problems With Anesthesia: No You/Your Family Experience Fever (Hyperthermia) With Anes: No Cholinesterase deficiency: No Cardiovascular Hx Hypertension: No Respiratory Hx Sleep Apnea: No Hx Respiratory Tract Infection/Cold (presently): No Do You Snore Loudly (louder than talking or can be heard): Yes Do You Often Feel Tired/ Fatigued/ Sleepy Dring Daytime?: No Has Anyone Observed You Stop Breathing During Sleep?: No Result (for STOP score): Negative Smoking Status: Current some day smoker Neurological Does patient have nerve stimulator: No Reproduction : No Miscellaneous Recent Exposure to Contagious Disease: No Allergies meperidine [From Demerol] Allergy (Severe, Verified 04/08/22 09:26) Itching Discharge Is Pt Admitted From a Longterm, or a Long Term: No After D/C, Where Do you Plan to Go: Return Home Vital Signs Vital Signs Vital Signs: 04/08/22 09:38 04/08/22 09:38 Temperature 98.2 F Temperature Source Temporal Pulse Rate 77 Respiratory Rate 16 Respiratory Pattern Normal Blood Pressure 131/86 H Blood Pressure Mean 101 Blood Pressure Source Monitor Blood Pressure Position Semi-Fowlers Blood Pressure Location Left Arm Pulse Ox 99 Oxygen Delivery Method Room Air Weight Weight: 152 lb 1.903 oz Body Mass Index (BMI) 26.1 Physical Exam Const alert and oriented x3 Resp normal respiratory effort and normal air movement Cardio regular rate and regular rhythm GI soft to palpation, non-tender and non-distended Assessment & Plan Assessment/Plan (1) Encounter for screening for malignant neoplasm of colon: PLAN: I explained endoscopy in detail to the patient. I explained the risks including but not limited to stroke or heart attack with anesthesia, perforation of the GI tract, bleeding, infection. I explained that any of these could necessitate further emergency surgery. The patient understands and all questions were answered sufficiently. The patient wishes to proceed with procedure. Fortunato Odell MD Pager: [facility] [address] [place] [address], [address] [place] [address] Office: Surgery Risks - Colonoscopy Risks Include but are not Limited To: Risks include but are not limited to: Bleeding, perforation requiring further surgery, inability to complete colonoscopy requiring barium enema.
--- NOTE | 2022-04-08 10:00 | COLBX_PTH ---
PATIENT: ANNA MALIN LOC: EN U#:[id number] AGE/SX: 61/F ROOM: RE04/08/[address]: Dr. Fortunato Odell MD : 1960 BED: DIS: 04/08/2022 SPEC #: [id number] RECD: 04/08/22 11:31 STATUS: KELVIN REShanel #: [id number] EMILIANO: 04/08/22 10:[address]: Fortunato Odell DEPT: SURGICAL PATHOLOGY RECD BY: Torie Thomas ENTERED: 04/08/22 12:33 SP TYPE: COLON BX OTHR DR: Dr. Narciso Chávez MD Tissues: A - COLON BIOPSY B - Transverse colon C - Transverse colon Procedures: Surgery Specimen Level IV HEADER OPERATION: Colonoscopy ? open access (MAC), polypectomy PRE-OP DIAGNOSIS: Screening TISSUE SUBMITTED: A ? Hepatic flexure polyp, B ? Transverse polyp, C ? Distal transverse polyp MICROSCOPIC DIAGNOSIS A. Colonic polyp at hepatic flexure, biopsy: Tubulovillous adenoma. B. Transverse colon polyp, biopsy: Fragments of tubular adenoma. C. Distal transverse colon polyp, biopsy: Tubular adenoma. AM:kim 04/11/2022 MICROSCOPIC DESCRIPTION Slides are reviewed. GROSS DESCRIPTION A - Received in fixative is one container labeled with the patient's name and designated hepatic flexure polyp. The specimen consists of a single fragment of light hahn soft tissue measuring 1 x 0.6 x 0.3 cm. The specimen is bisected along its long axis and totally submitted in one cassette. B - Received in fixative is one container labeled with the patient's name and designated transverse polyp. The specimen consists of two irregular fragments of light hahn soft tissue that in aggregate measure 0.8 x 0.6 x 0.2 cm. The specimen is totally submitted in one cassette. C - Received in fixative is one container labeled with the patient's name and designated distal transverse polyp. The specimen consists of multiple irregular fragments of light hahn soft tissue that in aggregate measure 0.8 x 0.6 x 0.1 cm. The specimen is totally submitted in one cassette. / AM:kim 04/08/2022 TC:5 CPT: 20797 x3
--- NOTE | 2022-04-08 10:30 | OP.COLON_ITS ---
Patient Name: Walt Moran Procedure Date: 04/08/2022 10:01 AM Date of : 1960 Age: 61 Procedure: Colonoscopy Indications: Screening for colorectal malignant neoplasm Providers: Fortunato Odell MD Referring MD: Narciso Chávez Medicines: Monitored Anesthesia Care Patient Profile: This is a 61 year old female. Refer to note in patient chart for documentation of history and physical. Last Colonoscopy: 10 years ago. Complications: No immediate complications. Estimated blood loss: Minimal. Procedure: Pre-Anesthesia Assessment: - Prior to the procedure, a History and Physical was performed, and patient medications and allergies were reviewed. The patient's tolerance of previous anesthesia was also reviewed. The risks and benefits of the procedure and the sedation options and risks were discussed with the patient. All questions were answered, and informed consent was obtained. Prior Anticoagulants: The patient has taken no previous anticoagulant or antiplatelet agents. After reviewing the risks and benefits, the patient was deemed in satisfactory condition to undergo the procedure. After I obtained informed consent, the scope was passed under direct vision. Throughout the procedure, the patient's blood pressure, pulse, and oxygen saturations were monitored continuously. The Colonoscope was introduced through the anus and advanced to the cecum, identified by the appendiceal orifice, ileocecal valve and palpation. The colonoscopy was performed without difficulty. The patient tolerated the procedure well. The quality of the bowel preparation was good. Scope In: 10:07:16 AM Scope Withdrawal Time 0 hours 14 minutes 46 seconds Scope Out: 10:27:24 AM Total Procedure Duration Time 0 hours 20 minutes 8 seconds Findings: Three polyps were found in the transverse colon, distal transverse colon and hepatic flexure. The polyps were small in size. These polyps were removed with a hot snare. Resection and retrieval were complete. Multiple small-mouthed diverticula were found in the sigmoid colon and descending colon. Impression: - Three small polyps in the transverse colon, in the distal transverse colon and at the hepatic flexure, removed with a hot snare. Resected and retrieved. - Diverticulosis in the sigmoid colon and in the descending colon. Recommendation: - Discharge patient to home. - Resume previous diet. - Continue present medications. - Await pathology results. - Repeat colonoscopy in 3 years for surveillance of multiple polyps. Procedure Code(s): --- Professional --- 20730, Colonoscopy, flexible; with removal of tumor(s), polyp(s), or other lesion(s) by snare technique Diagnosis Code(s): --- Professional --- Z12.11, Encounter for screening for malignant neoplasm of colon D12.3, Benign neoplasm of transverse colon (hepatic flexure or splenic flexure) K57.30, Diverticulosis of large intestine without perforation or abscess without bleeding CPT copyright 2017 [employer]. All rights reserved. The codes documented in this report are preliminary and upon data coder operator review may be revised to meet current compliance requirements. Fortunato Odell MD 04/08/2022 10:30:14 AM This report has been signed electronically. Number of Addenda: 0 Note Initiated On: 04/08/2022 10:01 AM
--- NOTE | 2022-04-08 10:30 | OP.CCLET_ITS ---
04/08/2022 Narciso Chávez Re : Colonoscopy procedure for Walt Moran Dear Kyler This procedure was performed on Friday, April 08, 2022. My impressions and recommendations are as follows: Impressions : - Three small polyps in the transverse colon, in the distal transverse colon and at the hepatic flexure, removed with a hot snare. Resected and retrieved. - Diverticulosis in the sigmoid colon and in the descending colon. Recommendations : - Discharge patient to home. - Resume previous diet. - Continue present medications. - Await pathology results. - Repeat colonoscopy in 3 years for surveillance of multiple polyps. My findings are described in the full procedure note, which is enclosed. If I can be of further assistance, please feel free to contact me at Doctor phone number(s): , Work: . Sincerely, Fortunato Odell MD 04/08/2022 10:30:14 AM This report has been signed electronically.
[2022-04-08] MEDS: 0.9 % NaCl (Sterile) Posiflush 10 mL IV (11:21)
== END 2022-04-08 11:23 | disposition home or self-care (01) ==
LOC: EN 09:05 → AC 09:06
PROVIDERS: PCP Family Medicine; Referring Provider Family Medicine; Visit Provider Surgery
PROC: 0DJD8ZZ Inspection of Lower Intestinal Tract, Via Natural or Artificial Opening Endoscopic (ICD-10-PCS; CPT 45378; principal; 2022-04-08 09:55)
DX: Z12.11 Encounter for screening for malignant neoplasm of colon (principal); J44.9 Chronic obstructive pulmonary disease, unspecified; D12.3 Benign neoplasm of transverse colon; K57.30 Diverticulosis of large intestine without perforation or abscess without bleeding; E78.00 Pure hypercholesterolemia, unspecified; F41.9 Anxiety disorder, unspecified; F17.210 Nicotine dependence, cigarettes, uncomplicated; Z79.899 Other long term (current) drug therapy
CPT/HCPCS: 45385; 88305; J7120; A4216; J2405

== ENCOUNTER 2022-07-05 03:45 | Emergency (ER) | payer MEDICAID, SELFPAY ==
[2022-07-05 03:46] VITALS: BP 159/94; PULSE 71; RESP 15; TEMP 36.8; O2SAT 100; BMI 24.8
--- NOTE | 2022-07-05 03:53 | CT_ITS ---
We are attempting to reach an attending provider to discuss findings. An addendum with communication details will be sent when the communication is complete. STUDY: CTA HEAD AND NECK WITH CONTRAST REASON FOR EXAM: Female, 62 years old. Left-sided weakness. Lung cancer. RADIATION DOSAGE (If Supplied By Facility): CTDIvol = ( 28.75 ) mGy, DLP = ( 1527.66 ) mGycm TECHNIQUE: Precontrast head CT was performed. CT angiography was performed with a multi-detector CT scanner. Data acquisition was obtained from the skull base through the vertex following intravenous administration of IV 100mL Isovue-370. with MIP and 3D reconstructed images. Individualized dose optimization techniques were used for this CT. COMPARISON: MRI brain 04/23/2021. FINDINGS: Precontrast head CT reveals a heterogenous mass in the right frontal lobe with extensive adjacent vasogenic edema. This causes 1.5 cm left shift of midline structures, subfalcine herniation of the right cingulate gyrus, and obstructive hydrocephalus of the left lateral ventricle. Cervical ICA narrowing is measured per NASCET criteria (% ICA stenosis = (1 - [narrowest ICA diameter/diameter normal distal cervical ICA]) x 100. CTA NECK: Aortic arch: Left-sided 3 vessel aortic arch with no significant narrowing of the great vessel origins or subclavian arteries. Right carotids: Right CCA: No significant narrowing or dissection. Right ICA: No significant narrowing or dissection. Right ECA: No significant narrowing or dissection. Left carotids Left CCA:No significant narrowing or dissection. Left ICA: No significant narrowing or dissection. Left ECA: No significant narrowing or dissection. Vertebrals: Codominant vertebral arteries with no significant narrowing and no dissection. CTA HEAD: Intracranial carotids:Normal course and caliber. MCAs:No aneurysm or significant stenosis. ACAs:No aneurysm or significant stenosis. Both anterior cerebral arteries are deviated to the left secondary to mass effect. Basilar:Normal caliber. No aneurysm. bead supervisor:No aneurysm or significant narrowing. P1 segments and posterior communicating arteries have similar caliber bilaterally. Patent bilateral posterior and anterior inferior and superior cerebellar arteries are identified. No evidence of AVM or aneurysm. No intracranial DVT. Nonvascular structures: The right frontal mass shows heterogenous enhancement with central necrosis and measures 4.6 x 3.7 x 4.2 cm. No other mass lesions are evident. Status post partial left pneumonectomy, underlying emphysema, right-sided PowerPort partially visible. Mild mediastinal and right hilar adenopathy partially visible. The patient is edentulous. CT/CTA Head AND Neck W/ Contrast IMPRESSION: No significant arterial narrowing in the head or neck. 4.6 cm necrotic mass right frontal lobe with extensive adjacent vasogenic edema. This could represent a metastasis or a primary brain malignancy. Mass effect includes 1.5 cm left shift of midline structures, subfalcine herniation of the right cingulate gyrus, and obstructive hydrocephalus of the left lateral ventricle. Electronically Signed: Saul Brandon MD at 5:30 EST ,
--- NOTE | 2022-07-05 03:53 | RAD_ITS ---
STUDY: X-RAY CHEST REASON FOR EXAM: Female, 62 years old. Pain. Left-sided weakness. TECHNIQUE: AP COMPARISON: 02/24/2022 CT chest. FINDINGS: No evidence of pneumonia, pneumothorax or pleural effusion. Changes of partial left pneumonectomy with left hilar and suprahilar surgical sutures and clips and shift of mediastinal structures to the left again demonstrated. Right-sided PowerPort remains in place. Heart size remains normal. Excreted IV contrast is seen within the nondilated renal collecting systems in the upper abdomen. RAD/Chest 1 View (Portable) IMPRESSION: No acute findings. Status post partial left pneumonectomy. Electronically Signed: Saul Brandon MD at 5:12 EST ,
--- NOTE | 2022-07-05 03:53 | EKG12_ITS ---
Test Reason : DYSRHYTHMIA Blood Pressure : / mmHG Vent. Rate : 064 BPM Atrial Rate : 064 BPM P-R Int : 140 ms QRS Dur : 084 ms QT Int : 442 ms P-R-T Axes : 096 074 052 degrees QTc Int : 455 ms Normal sinus rhythm Normal ECG Confirmed by JOHN ROLDAN, ALMITA ([id number]), communications editor RIAN DIEZ ([id number]) on 07/06/2022 2:41:48 PM Referred By: LAKESHA Confirmed By:ALMITA LOPEZ MD
--- NOTE | 2022-07-05 03:54 | EDS_ITS ---
HPI History of Present Illness Chief Complaint: Weakness Informant: patient Onset/Context/Timing Onset: Days (5 days) Current Severity: Moderate Maximum Severity: Moderate Narrative Narrative: Patient presents via EMS secondary to left-sided weakness. Symptoms started 5 days ago. Tonight patient tried to get out of bed and fell. Her was unable to get her back in bed and called 911. He believes that she likely had a stroke several days ago. Patient does report significant left leg weakness. She has some left arm weakness. She reports some difficulty in swallowing liquids over the past couple days. She has a history of chronic back pain but states it is no worse than baseline. She has fallen out of bed a few times in the last several days but denies any injury from these falls. [facility] Medical History Anxiety Arthritis Asthma Back pain Cancer Cancer of upper lobe of left lung Chronic cough Chronic neck and back pain CINV (chemotherapy-induced nausea and vomiting) Colon polyps Constipation COPD (chronic obstructive pulmonary disease) Degenerative joint disease Easy bruising Encounter for education Encounter for screening colonoscopy Exertional dyspnea Flu vaccine need High cholesterol History of diverticulitis History of edema History of primary non-small cell carcinoma of left lung Hx of fracture of wrist Hyperlipidemia Injury of head and neck Left low back pain Leg cramps Marijuana use Oral candidiasis Osteoporosis Port-A-Cath in place Post-menopausal Restless legs Shortness of breath on exertion Smoker Vertigo Wears dentures Wears glasses Home Medications duloxetine 60 mg capsule,delayed release (Cymbalta) 60 mg PO DAILY anxiety depression 01/13/21 [History Last Taken 01/28/21 17:00] ibandronate 150 mg tablet (Boniva) 150 mg PO QMONTH 01/13/21 [History Last Taken 01/28/21 17:00] meloxicam 15 mg tablet 15 mg PO DAILY arthritis 01/13/21 [History Last Taken 01/28/21 17:00] psyllium husk 0.4 gram capsule (Daily Fiber) 0.4 g PO DAILY supplement 01/13/21 [History Last Taken 01/28/21 17:00] rosuvastatin 10 mg tablet 10 mg PO QHS cholesterol 01/13/21 [History Last Taken 01/28/21 17:00] tizanidine 4 mg capsule 4 mg PO TID PRN MUSCLE RELAXER 01/13/21 [History Last Taken 01/28/21 17:00] lidocaine-prilocaine 2.5 %-2.5 % topical cream 1 applic topical ONCE PRN port access 30 days #30 grams 04/13/21 [Rx Last Taken Unknown] albuterol sulfate 90 mcg/actuation aerosol inhaler (Ventolin HFA) 2 puff inhalation Q4H PRN shortness of breath or wheezing #18 grams 12/13/21 [Rx Last Taken Unknown] budesonide-formoterol HFA 160 mcg-4.5 mcg/actuation aerosol inhaler (Symbicort) 2 puff inhalation BID #1 ea 12/15/21 [Rx Last Taken Unknown] tiotropium bromide 2.5 mcg/actuation mist for inhalation (Spiriva Respimat) 2 inh inhalation QDAY #1 ea 12/15/21 [Rx Last Taken Unknown] ascorbate calcium (vitamin C) 500 mg tablet 500 mg PO DAILY 03/03/22 [History Last Taken Unknown] biotin 10 mg tablet 10 mg PO DAILY 03/03/22 [History Last Taken Unknown] glucosamine-chondroitin 250 mg-200 mg tablet (Osteo Bi-Flex) 1 tab PO DAILY 03/03/22 [History Last Taken Unknown] potassium gluconate 600 mg (99 mg) tablet 600 mg PO DAILY 03/03/22 [History Last Taken Unknown] cyanocobalamin (vitamin B-12) 1,000 mcg tablet (Vitamin B-12) 1,000 mcg PO DAILY 03/24/22 [History Last Taken Unknown] nystatin 100,000 unit/mL oral suspension 5 ml mucous membrane TID #250 mL 03/29/22 [Rx Last Taken Unknown] cephalexin 500 mg capsule 500 mg PO BID 06/02/22 [History Last Taken Unknown] Allergy/AdvReac Type Severity Reaction Status Date / Time meperidine [From Demerol] Allergy Severe Itching Verified 07/05/22 03:53 Family History Mother Lung cancer Father Diabetes Surgical History History of colonoscopy History of hysterectomy History of lobectomy of lung History of surgery on arm History of thyroid surgery Social History household members: spouse Smoking Status: Current some day smoker tobacco type: cigarettes Tobacco: How many years used: 45 how long ago did patient quit smokin day ago second hand exposure: Yes alcohol intake: never substance use type: marijuana bolivar/caodaism: Orthodox seatbelt use: always do you feel safe at home: Yes ROS ROS ED Constitutional Constitutional ED: Denies chills or fever(s) Eyes Eyes: Denies change in vision or discharge from eye(s) ENT ENT ED: Denies discharge from eye(s), rhinorrhea or sore throat Cardiovascular Cardiovascular: Denies chest pain or palpitations Respiratory/Chest Respiratory/Chest: Denies cough or dyspnea Gastrointestinal Gastrointestinal: Denies abdominal pain, diarrhea, nausea or vomiting Genitourinary Genitourinary ED: Denies dysuria Musculoskeletal Musculoskeletal: Reports back pain; Denies extremity pain Integumentary Denies Abrasions or rash Neurologic Neurologic: Reports headache(s) and weakness Psychiatric Psychiatric: Denies anxiety or depression Allergic/Immunologic Allergic/Immunologic ED: Denies lip swelling or urticaria EXAM Physical Exam Const Vital Signs: 07/05/22 03:46 Temperature 98.2 F Temperature Source Oral Pulse Rate 71 Respiratory Rate 15 Blood Pressure 159/94 H Blood Pressure Mean 115 Pulse Ox 100 Oxygen Delivery Method Room Air Positive well nourished and well developed General Appearance ED: well developed HEENT Reports normocephalic and head/scalp atraumatic Eyes PERRL and EOMs intact bilaterally Neck supple Chest Wall inspection of chest normal and palpation of chest normal Resp normal respiratory effort and clear to auscultation bilaterally Cardio regular rate and regular rhythm GI normal to inspection, nondistended, normoactive bowel sounds Palpation: soft Extremity normal to inspection Neuro oriented x3 and no sensory deficits noted Neuro Narrative: NIH equals 6 at the time of my exam. She receives one-point for mild left faci al palsy, one-point for left arm weakness, 3 points for left leg weakness, one- point for limb ataxia. Sensorium / Orientation: alert Psych mental status grossly normal Skin no rashes or lesions noted MDM MDM MDM Narrative Medical decision making narrative: Lab work and EKG obtained. Chest x-ray ordered along with CTA of the head and neck. Lab Data Attestation: I reviewed the patient's lab results. Labs: Laboratory Results - last 24 hr 07/05/22 07/05/22 04:15 04:15 WBC 7.9 RBC 4.41 Hgb 14.1 Hct 41.6 MCV 94.3 MCH 32.0 MCHC 33.9 RDW Std Deviation 43.0 RDW Coeff of Courtney 12.4 Plt Count 249 MPV 10.2 Immature Gran % (Auto) 0.400 Neut % (Auto) 57.3 Lymph % (Auto) 31.2 [place] % (Auto) 9.4 Eos % (Auto) 1.3 Baso % (Auto) 0.4 Absolute Neuts (auto) 4.5 Absolute Lymphs (auto) 2.46 Nucleated RBC % 0 Sodium 140 Potassium 3.5 Chloride 104 Carbon Dioxide 24.0 Anion Gap 12 BUN 9 Creatinine 0.46 L Estim Creat Clear Calc 106.24 Est GFR (MDRD) Af Amer 177 Est GFR (MDRD) Non-Af 146 BUN/Creatinine Ratio 19.5 Glucose 72 L Calcium 9.3 Troponin I High Sens 23 Radiography Chest X-Ray - ED: 1 View, Chronic Changes and - (Chronic postop changes from prior partial pneumonectomy.) Diagnostic Testing: Clinical Impression(s) from Imaging Studies Chest X-Ray 07/05/22 03:53 IMPRESSION: No acute findings. Status post partial left pneumonectomy. Electronically Signed: Saul Brandon MD at 5:12 EST Reading Location ID and State: [address] [place] [address] Tel , Service support , Head/Neck CTA 07/05/22 03:53 IMPRESSION: No significant arterial narrowing in the head or neck. 4.6 cm necrotic mass right frontal lobe with extensive adjacent vasogenic edema. This could represent a metastasis or a primary brain malignancy. Mass effect includes 1.5 cm left shift of midline structures, subfalcine herniation of the right cingulate gyrus, and obstructive hydrocephalus of the left lateral ventricle. Electronically Signed: Saul Brandon MD at 5:30 EST Reading Location ID and State: [address] [place] [address] Tel , Service support , ADDENDUM: 07/05/22 0539 IMPRESSION: No significant arterial narrowing in the head or neck. 4.6 cm necrotic mass right frontal lobe with extensive adjacent vasogenic edema. This could represent a metastasis or a primary brain malignancy. Mass effect includes 1.5 cm left shift of midline structures, subfalcine herniation of the right cingulate gyrus, and obstructive hydrocephalus of the left lateral ventricle. N.B. : The above Results were Read Back by Saul Brandon MD to Kenna Chase MD, and understanding confirmed on 07/05/2022 05:32:51 (ET). Electronically Signed: Saul Brandon MD at 5:30 EST , EKG Initial EKG: Attestation: I personally reviewed and interpreted this EKG as follows: Interpretation: Sinus Rhythm (Sinus at 64 with no acute ischemia.) Treatment and Re-Evaluation Narrative: CBC and chemistry studies are unremarkable. Chest x-ray reveals postop changes from prior pneumonectomy per my interpretation. Radiology interpretation is reviewed. CTA of the head and neck reveals a 4.6 cm necrotic mass in the right frontal lobe with extensive adjacent vasogenic edema. Mass-effect is noted including a 1.5 cm left shift of midline structures, subfalcine herniation of the right cingulate gyrus, and obstructive hydrocephalus of the left lateral ventricle. Test results are discussed with patient and spouse at bedside. She is been ordered 10 mg of IV Decadron. Was discussed with the transfer line at [facility]. Patient has been accepted by the neurosurgery team there and patient is to be transferred to the ED. Discharge Plan Triage Chief Complaint: Weakness ED Provider: Kenna Chase Dx/Rx/DC Orders Clinical Impression: Brain mass, Left-sided weakness Prescriptions: No Action rosuvastatin 10 mg tablet 10 mg PO QHS duloxetine [Cymbalta] 60 mg capsule,delayed release(DR/EC) 60 mg PO DAILY meloxicam 15 mg tablet 15 mg PO DAILY tizanidine 4 mg capsule 4 mg PO TID PRN (Reason: MUSCLE RELAXER) ibandronate [Boniva] 150 mg tablet 150 mg PO QMONTH psyllium husk [Daily Fiber] 0.4 gram capsule 0.4 g PO DAILY lidocaine-prilocaine 2.5-2.5 % cream 1 applic topical ONCE PRN (Reason: port access) 30 Days Qty: 30 2RF albuterol sulfate [Ventolin HFA] 90 mcg/actuation HFA aerosol inhaler 2 puff inhalation Q4H PRN (Reason: shortness of breath or wheezing) Qty: 18 6RF biotin 10 mg tablet 10 mg PO DAILY ascorbate calcium (vitamin C) 500 mg tablet 500 mg PO DAILY glucosamine-chondroitin [Osteo Bi-Flex] 250-200 mg tablet 1 tab PO DAILY Rx Instructions: give after food/meal potassium gluconate 600 mg (99 mg) tablet 600 mg PO DAILY cyanocobalamin (vitamin B-12) [Vitamin B-12] 1,000 mcg tablet 1,000 mcg PO DAILY cephalexin 500 mg capsule 500 mg PO BID budesonide-formoterol [Symbicort] 160-4.5 mcg/actuation HFA aerosol inhaler 2 puff inhalation BID Qty: 1 3RF Rx Instructions: administer with spacer, rinse mouth after each use Spiriva Respimat 2.5 mcg/actuation mist 2 inh inhalation QDAY Qty: 1 6RF Rx Instructions: administer at approximately the same time(s) each day nystatin 100,000 unit/mL suspension 5 ml mucous membrane TID Qty: 250 1RF Rx Instructions: swish and swallow 5 cc three times per day for 10 days Primary Care Provider: Narciso Chávez Referrals: Narciso Chávez MD [Primary Care Provider] - Disposition Disposition: Acute Care Hospital Discharge Location: [facility]
[2022-07-05 04:23] LABS: Absolute Lymphocyte Count 2.46 X10^3/uL (0.83-4.51); Absolute Neutrophil Count 4.5 X10^3/uL (2.0-7.7); Basophil# 0.03 X10^3/uL; Basophil% 0.4 % (0-1); Eosinophils% 1.3 % (0-5); Hematocrit 41.6 % (37-47); Hemoglobin 14.1 g/dL (12.0-15.0); Lymphocyte # 2.46 X10^3/ul (0.83-4.51); Lymphocyte % 31.2 % (19-41); Mean Corp Hgb Conc 33.9 g/dL (32-36); Mean Corpuscular Volume 94.3 fL (81-99); Mean Platelet Vol. 10.2 fl (6.2-12.0); Monocyte# 0.74 X10^3/uL; Monocyte% 9.4 % (0-10); NRBC Flagged by Analyzer 0 % (0-5); Neutrophil # 4.53 X10^3/uL (2.7-7.7); Neutrophil % 57.3 % (47-70); Platelet Count 249 K/mm3 (150-450); RBC Distribution Width CV 12.4 % (11.6-14.6); Red Blood Count 4.41 M/mm3 (4.2-5.4); White Blood Count 7.9 K/mm3 (4.4-11.0)
[2022-07-05 04:43] LABS: Anion Gap 12 (5-15); BUN 9 mg/dL (7-18); BUN/Creat Ratio 19.5 RATIO (10-20); Calcium,Total 9.3 mg/dL (8.5-10.1); Chloride 104 mmol/L (98-107); Creatinine, Serum 0.46 mg/dL (0.55-1.02); EST Glomerular Filtration Rate 146 mL/min (>60); Est Glom Filt Rate - Afr Amer 177 mL/min (>60); Estimated Creatinine Clearance 106.24 ml/min; Glucose 72 mg/dL (74-106); Potassium 3.5 mmol/L (3.5-5.1); Sodium Level 140 mmol/L (136-145); Troponin-I HS 23 pg/mL (3.0-54.0)
[2022-07-05] MEDS: dexAMETHasone 10 MG/ML Vial IV (05:42)
[2022-07-05 06:10] VITALS: BP 148/95; PULSE 64; RESP 13; O2SAT 97
== END 2022-07-05 08:06 | disposition short-term general hospital (02) ==
PROVIDERS: Emergency Provider Emergency Medicine; PCP Family Medicine; Visit Provider Emergency Medicine
DX: G93.9 Disorder of brain, unspecified (principal); R53.1 Weakness; F12.90 Cannabis use, unspecified, uncomplicated; F17.210 Nicotine dependence, cigarettes, uncomplicated; F41.9 Anxiety disorder, unspecified; Z79.899 Other long term (current) drug therapy
CPT/HCPCS: 36591; 70496; 70498; 71045; 80048; 84484; 85025; 93005; 96374; 99285; Q9967; A4216

== ENCOUNTER 2022-07-13 17:30 | Inpatient (IN) | payer MEDICAID, SELFPAY ==
[2022-07-13 17:43] VITALS: BP 144/74; PULSE 83; RESP 16; TEMP 36.6; O2SAT 98
[2022-07-13 18:06] VITALS: BMI 21.8
[2022-07-13 19:45] VITALS: BP 145/85; PULSE 72; RESP 18; TEMP 37.1; O2SAT 98
[2022-07-13] MEDS: Senna/Docusate Sodium 1 Tablet 2 TABLET PO (21:27)
[2022-07-13] MEDS: levETIRAcetam 500 MG Tablet PO (21:27)
[2022-07-13] MEDS: Atorvastatin Calcium 20 MG Tablet PO (21:27)
[2022-07-13 22:35] VITALS: PULSE 71; RESP 18; O2SAT 99
[2022-07-13] MEDS: Budesonide Respules 0.5 MG/2 ML AMPUL.NEB. INHALATION (22:35)
[2022-07-13] MEDS: Ipratropium/Albuterol Sulfate 3 ML AMPUL.NEB INHALATION (22:35)
[2022-07-14] MEDS: oxyCODONE 5 MG Tablet PO ×2 (00:22→20:57)
--- NOTE | 2022-07-14 04:03 | NURSING ---
Addendum entered by Yoana Reddy 07/14/22 04:04: Jose GONG. Original Note: Reviewed and agree with MEAL MILLER documentation and assessment charting.
[2022-07-14 06:14] LABS: Absolute Neutrophil Count 3.5 X10^3/uL (2.0-7.7); Basophil# 0.01 X10^3/uL; Basophil% 0.1 % (0-1); Eosinophil# 0.08 X10^3/uL; Eosinophils% 1.1 % (0-5); Hematocrit 33.5 % (37-47); Mean Corp Hgb Conc 32.8 g/dL (32-36); Mean Corpuscular Hgb 32.1 pg (27.0-32.0); Mean Corpuscular Volume 97.7 fL (81-99); Mean Platelet Vol. 10.5 fl (6.2-12.0); Monocyte# 0.65 X10^3/uL; NRBC Flagged by Analyzer 0.3 % (0-5); Neutrophil # 3.52 X10^3/uL (2.7-7.7); Neutrophil % 48.6 % (47-70); Platelet Count 216 K/mm3 (150-450); RBC Distribution Width CV 13.2 % (11.6-14.6); RBC Distribution Width SD 46.7 fl (35.1-43.9); Red Blood Count 3.43 M/mm3 (4.2-5.4); White Blood Count 7.3 K/mm3 (4.4-11.0)
[2022-07-14 06:30] VITALS: PULSE 74; RESP 16; O2SAT 97
[2022-07-14] MEDS: Ipratropium/Albuterol Sulfate 3 ML AMPUL.NEB INHALATION ×2 (06:30→19:07)
[2022-07-14 06:54] LABS: ALB/GLOB Ratio 1.2 RATIO (0.9-2.4); AST(SGOT) 18 U/L (15-37); Alanine Aminotransfer ALT/SGPT 42 U/L (13-56); Alkaline Phosphatase 55 U/L (45-117); Anion Gap 8 (5-15); BUN 14 mg/dL (7-18); BUN/Creat Ratio 29.6 RATIO (10-20); Calcium,Total 8.7 mg/dL (8.5-10.1); Chloride 106 mmol/L (98-107); Creatinine, Serum 0.47 mg/dL (0.55-1.02); EST Glomerular Filtration Rate 142 mL/min (>60); Est Glom Filt Rate - Afr Amer 172 mL/min (>60); Estimated Creatinine Clearance 108.54 ml/min; Globulin 2.6 g/dL (2.2-4.2); Glucose 83 mg/dL (74-106); Magnesium 2.5 mg/dL (1.6-2.6); Phosphorus 3.8 mg/dL (2.5-4.9); Potassium 3.8 mmol/L (3.5-5.1); Protein, Total 5.6 g/dL (6.4-8.2); Sodium Level 139 mmol/L (136-145)
[2022-07-14 07:41] VITALS: BP 142/67; PULSE 72; RESP 17; TEMP 36.7; O2SAT 100
[2022-07-14] MEDS: DULoxetine Hcl 60 MG Capsule PO (08:06)
[2022-07-14] MEDS: levETIRAcetam 500 MG Tablet PO ×2 (08:07→20:59)
[2022-07-14] MEDS: Psyllium 1 PACKET PO (08:07)
[2022-07-14] MEDS: Senna/Docusate Sodium 1 Tablet 2 TABLET PO ×2 (08:07→20:59)
--- NOTE | 2022-07-14 10:44 | NURSING ---
Spoke with Dr. Kit Bennett officer, given permission to remove tiffanie 10-14 days after surgery with 07/18 being day 10.
--- NOTE | 2022-07-14 14:08 | HP.PCM_ITS ---
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 [facility] Narrative ANNA MALIN, is a 62 YO F with a PMH of tobacco dependence, COPD, anxiety, chronic back pain, osteoporosis, hyperlipidemia, diverticulosis, colon polyps and L lung adeno CA with hx of lobectomy in 2020 who who presented to the emergency department at [facility] on 07/05/2022 complaining of right side headache, confusion and left side weakness. she had fallen out of bed a few times in the preceding several days. A CTA of the head and neck showed a 4.6 cm necrotic mass in the right frontal lobe with extensive adjacent vasogenic edema. 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 She was transferred to [facility] for further W/U. She was started on Decadron and a neurosurgery consult was requested. On 07/08/22 she underwent a R frontal craniotomy for resection of the mass. CT head on 07/08/2022 postop showed improved mass-effect and edema. An MRI of the brain was obtained within 24 hours of the OR and it showed stable edema, improved mass- effect and a stable small rim-enhancing lesion in the left precentral gyrus. There was a stable osseous lesion in the right orbit. While at [facility] Anna was seen by PT/OT/ST and transfer to an acute inpatient rehab unit was recommended at discharge. Saurabh was transferred to the acute inpatient rehab floor at [facility] on 07/13/2022 for 3 hours of therapy daily to restore function/independence at or near her prior level. She is to return to [facility] for FSRT in 2 weeks post DC. Afebrile VSS-blood pressure has ranged from 142/67-145/85 since arrival on rehab. Heart rate is within normal limits. Maintaining appropriate oxygen saturation on RA Discussed with nursing - no problems that need addressed Reviewed the PT/OT/ST notes - ST did not pick her up Medication list reviewed. All records transferred from [facility] were personally reviewed. All lab from this morning was personally reviewed. White blood cell count is within normal limits. Hemoglobin is low at 11, down from 14.1 prior to surgery. Platelets are within normal limits. All electrolytes are within normal limits. The BUN is elevated at 14 with a creatinine of 0.47. [facility] Medical History (Updated 07/14/22 @ 17:[address] Tona Rutherford, DO) Anxiety Asthma Back pain Chronic cough Chronic neck and back pain CINV (chemotherapy-induced nausea and vomiting) Colon polyps Constipation COPD (chronic obstructive pulmonary disease) Easy bruising Encounter for education Encounter for screening colonoscopy Exertional dyspnea Flu vaccine need History of diverticulitis History of edema Hx of fracture of wrist Hyperlipidemia Injury of head and neck Left low back pain Leg cramps Marijuana use Oral candidiasis Osteoporosis Port-A-Cath in place Post-menopausal Primary adenocarcinoma of left lung Restless legs Shortness of breath on exertion Vertigo Wears dentures Wears glasses Home Medications duloxetine 60 mg capsule,delayed release (Cymbalta) 60 mg PO DAILY anxiety depression 01/13/21 [History Last Taken 01/28/21 17:00] ibandronate 150 mg tablet (Boniva) 150 mg PO QMONTH 01/13/21 [History Last Taken 01/28/21 17:00] psyllium husk 0.4 gram capsule (Daily Fiber) 0.4 g PO DAILY supplement 01/13/21 [History Last Taken 01/28/21 17:00] rosuvastatin 10 mg tablet 10 mg PO QHS cholesterol 01/13/21 [History Last Taken 01/28/21 17:00] tizanidine 4 mg capsule 4 mg PO TID PRN MUSCLE RELAXER 01/13/21 [History Last Taken 01/28/21 17:00] albuterol sulfate 90 mcg/actuation aerosol inhaler (Ventolin HFA) 2 puff inhalation Q4H PRN shortness of breath or wheezing #18 grams 12/13/21 [Rx Last Taken Unknown] ascorbate calcium (vitamin C) 500 mg tablet 500 mg PO DAILY 03/03/22 [History Last Taken Unknown] biotin 10 mg tablet 10 mg PO DAILY 03/03/22 [History Last Taken Unknown] glucosamine-chondroitin 250 mg-200 mg tablet (Osteo Bi-Flex) 1 tab PO DAILY 03/03/22 [History Last Taken Unknown] potassium gluconate 600 mg (99 mg) tablet 600 mg PO DAILY 03/03/22 [History Last Taken Unknown] cyanocobalamin (vitamin B-12) 1,000 mcg tablet (Vitamin B-12) 1,000 mcg PO DAILY 03/24/22 [History Last Taken Unknown] budesonide-formoterol HFA 160 mcg-4.5 mcg/actuation aerosol inhaler (Symbicort) 2 puff inhalation BID COPD 07/13/22 [History Last Taken Unknown] levetiracetam 500 mg tablet (Keppra) 500 mg PO Q12H seizure prevention 07/13/22 [History Last Taken Unknown] nicotine 14 mg/24 hr daily transdermal patch (Nicoderm CQ) 1 patch transdermal DAILY smoking sensation 07/13/22 [History Last Taken Unknown] ondansetron HCl 4 mg tablet 4 mg PO Q8H PRN nausea/vomitting 07/13/22 [History Last Taken Unknown] oxycodone 5 mg tablet 5 mg PO Q6H PRN pain 07/13/22 [History Last Taken Unknown] polyethylene glycol 3350 17 gram oral powder packet (Miralax) 17 g PO DAILY PRN Constipation 07/13/22 [History Last Taken Unknown] tiotropium bromide 2.5 mcg/actuation mist for inhalation (Spiriva Respimat) 1 inh inhalation QDAY COPD 07/13/22 [History Last Taken Unknown] Allergy/AdvReac Type Severity Reaction Status Date / Time meperidine [From Demerol] Allergy Severe Itching Verified 07/05/22 03:53 Family History Mother Lung cancer Father Diabetes Surgical History (Updated 07/14/22 @ 17:[address] Tona Rutherford DO) History of colonoscopy History of hysterectomy History of lobectomy of lung History of surgery on arm History of thyroid surgery Social History (Updated 07/14/22 @ 14:[address] Tona Rutherford DO) household members: spouse Smoking Status: Former smoker quit date: 07/04/22 Tobacco: How many years used: 45 second hand exposure: Yes alcohol intake: never substance use type: marijuana bolivar/temple: Worship seatbelt use: always do you feel safe at home: Yes ROS Constitutional Constitutional: Reports body ache(s), difficulty sleeping and weakness; Denies chills or headache(s) Eyes Eyes: Denies blurry vision, change in vision, diplopia, exophthalmos or eye pain ENT HEENT: Reports dry mouth; Denies dizziness, dysphagia, hearing loss, loss taste/smell or sore throat Cardiovascular Cardiovascular: Denies chest pain, claudication, cold extremities, dizziness, dyspnea on exertion, edema, irregular heart rhythm, nausea, orthostatic symptoms or tachypnea Respiratory/Chest Respiratory/Chest: Reports change in mental status, cough and difficulty clearing secretions; Denies dyspnea, hoarseness, pain with cough, portable oxygen @ home, shortness of breath at rest, stridor or tachypnea Gastrointestinal Gastrointestinal: Reports constipation; Denies abdominal pain, diarrhea, dyspepsia, heartburn or nausea Genitourinary Genitourinary: Denies burning urination, difficulty urinating, urinary hesitancy, urinary incontinence or urinary urgency Musculoskeletal Musculoskeletal: Reports arthralgias, back pain and difficulty walking; Denies joint swelling or tremors Integumentary Integumentary: Reports wounds and other Details: Craniotomy incision R side ; Denies hirsutism, jaundice, photosensitivity, pruritus or rash Neurologic Neurologic: Reports focal weakness; Denies abnormal speech, dizziness, headache(s), loss of vision, numbness or seizures Psychiatric Psychiatric: Reports anxiety; Denies paranoia, suicidal thoughts, tactile hallucinations or visual hallucinations Endocrine Endocrinology: Denies change in body appearance, cold intolerance or heat int olerance Hematologic/Lymphatic Hematologic/Lymphatic: Reports easy bruising Allergic/Immunologic Allergic/Immunologic: Reports eczemia and wheezing; Denies throat swelling, tongue swelling or hives Vital Signs Vital Signs Vital Signs: 07/13/22 17:43 07/13/22 19:45 07/13/22 19:45 Temperature 97.8 F 98.7 F Temperature Source Temporal Temporal Pulse Rate 83 72 Pulse Strength Normal (2+) Respiratory Rate 16 18 Respiratory Effort Respiratory Depth Respiratory Pattern Blood Pressure 144/74 H 145/85 H Blood Pressure Mean 97 105 Blood Pressure Source Monitor Monitor Blood Pressure Position Sitting Semi-Fowlers Blood Pressure Location Right Arm Left Arm Pulse Ox 98 98 Oxygen Delivery Method Room Air Room Air 07/13/22 19:45 07/13/22 22:35 07/13/22 22:35 Temperature Temperature Source Pulse Rate 72 71 Pulse Strength Respiratory Rate 18 18 Respiratory Effort Normal Non-Labored Respiratory Depth Normal Respiratory Pattern Normal Blood Pressure Blood Pressure Mean Blood Pressure Source Blood Pressure Position Blood Pressure Location Pulse Ox 98 99 Oxygen Delivery Method Room Air Room Air 07/14/22 06:30 07/14/22 06:30 07/14/22 07:41 Temperature 98.1 F Temperature Source Oral Pulse Rate 74 72 Pulse Strength Respiratory Rate 16 17 Respiratory Effort Respiratory Depth Respiratory Pattern Normal Blood Pressure 142/67 H Blood Pressure Mean 92 Blood Pressure Source Monitor Blood Pressure Position Semi-Fowlers Blood Pressure Location Left Arm Pulse Ox 97 100 Oxygen Delivery Method Room Air Room Air 07/14/22 09:20 Temperature Temperature Source Pulse Rate Pulse Strength Normal (2+) Respiratory Rate Respiratory Effort Respiratory Depth Respiratory Pattern Blood Pressure Blood Pressure Mean Blood Pressure Source Blood Pressure Position Blood Pressure Location Pulse Ox Oxygen Delivery Method Weight Weight: 127 lb 4.789 oz Body Mass Index (BMI) 21.8 Physical Exam Const alert, oriented x3 and no apparent distress General Appearance: cooperative and well kempt HEENT normocephalic HEENT Narrative: She has a craniotomy scar down the midline of the skull and onto the R side posteriorly. It is intact and there is no shlomo-incisional erythema. There is no purulent discharge but she does have a lot of dried blood over the incision in the midportion. The MM are very dry. Eyes PERRL, EOMs intact bilaterally, no scleral icterus and normal visual crenshaw by confrontation General Eye: normal appearance of both eyes Conjunctiva: conjunctiva normal Sclera: sclera normal Neck supple, no JVD and no carotid bruits General: trachea midline Chest Chest: symmetrical chest wall rise Resp normal respiratory effort, normal air movement and clear to auscultation bilaterally Resp Narrative: Not tachypneic and no labored breathing. Effort and Inspection: able to speak in complete sentences Cardio regular rate, regular rhythm, S1 normal heart sound, S2 normal heart sound, no murmurs, no rub and no gallops Cardio Narrative: No ectopy GI normal to inspection, nondistended, normoactive bowel sounds, soft to palpation, non-tender and non-distended GI Narrative: No guarding with palpation Back/Spine no CVA tenderness Back/Spine Narrative: No pain with palpation of the vertebral bodies. Extremity no calf tenderness and no pedal edema Skin Skin Narrative: no rashes. General Skin Exam: no breakdown, crusts and other there is crusting of dried blood along portions of the craniotomy scar. No skull defect. ; Negative for jaundice Neuro oriented x3, CN's II-XII intact bilaterally and moves all extremities Neuro Narrative: She has weakness primarily of the LUE.......drifts but does not touch the bed in 10 sec. No drift in the L leg. No ataxia. No sensory deficits. tongue protrudes on the midline. No neglect. No visual loss. Distracted easily. Thinks she can do more than she can. Poor safety awareness. Psych mental status grossly normal, thought process normal, cooperative, affect normal, speech normal, denies hallucinations, denies homicidal ideation and denies suicidal ideation Appearance: grossly normal, appropriate and well kempt Attitude: calm Activity / Motor Behavior: appropriate eye contact; Negative for psychomotor agitation, fidgetting or restless Speech: normal speech Mood & Affect: euthymic mood Results Lab / Micro Data Result Diagrams: 07/14/22 05:26 07/14/22 05:26 Labs: Laboratory Results - last 24 hr 07/14/22 05:26: WBC 7.3, RBC 3.43 L, Hgb 11.0 L, Hct 33.5 L, MCV 97.7, MCH 32.1 H, MCHC 32.8, RDW Std Deviation 46.7 H, RDW Coeff of Courtney 13.2, Plt Count 216, MPV 10.5, Immature Gran % (Auto) 1.200 H, Neut % (Auto) 48.6, Lymph % (Auto) 40.0, [place] % (Auto) 9.0, Eos % (Auto) 1.1, Baso % (Auto) 0.1, Absolute Neuts (auto) 3.5, Absolute Lymphs (auto) 2.90, Nucleated RBC % 0.3 07/14/22 05:26: Sodium 139, Potassium 3.8, Chloride 106, Carbon Dioxide 25.0, Anion Gap 8, BUN 14, Creatinine 0.47 L, Estim Creat Clear Calc 108.54, Est GFR (MDRD) Af Amer 172, Est GFR (MDRD) Non-Af 142, BUN/Creatinine Ratio 29.6 H, Glucose 83, Calcium 8.7, Phosphorus 3.8, Magnesium 2.5, Total Bilirubin 0.70, AST 18, ALT 42, Alkaline Phosphatase 55, Total Protein 5.6 L, Albumin 3.0 L, Globulin 2.6, Albumin/Globulin Ratio 1.2 Assessment & Plan Assessment/Plan (1) Debility: PLAN: Secondary to craniotomy to resect a metastatic lesion in the brain from primary adenocarcinoma of the lung. (2) Hx of craniotomy: (3) Metastatic lung cancer (metastasis from lung to other site): PLAN: Primary left lung adenocarcinoma-status post resection of left upper lobe. (4) Acute blood loss anemia: (5) Dehydration, mild: (6) Stage 2 moderate COPD by GOLD classification: (7) Primary adenocarcinoma of left lung: PLAN: PRATEEK resection in Feb (8) Constipation: (9) Weakness of left upper extremity: (10) Marijuana use: (11) Tobacco use disorder, moderate, in early remission, dependence: PLAN: Plan PLAN PT for gait stability OT for ADL's ST for evaluation Analgesics as needed Bowel protocol Fall precautions Assess for Anxiety/Depression GI prophylaxis -not necessary at this time. She denies a history of peptic ulcer disease and she denies dyspepsia, heartburn, nausea and epigastric pain. DVT prophylaxis with JOEL benito and SCDs Follow up with Dr. Licona following DC from [facility] Rehab......she is supposed to fo back to [facility] in 2 weeks for FSRT....wants to be treated in [place]. Will D/W Dr. Licona. AM lab including CMP, CBC, Mag and Phos - personally reviewed. Start Gabapentin at night for difficulty sleeping - this helped with her pain in the past but, when the dose was increased to 200 mg TID she had confusion, dysequilibrium and falls......I suspect this was likely due to the brain tumor + Gabapentin. Will need to talk more with her about anxiety and depression......she is trying to he stoic but, he tells me that she has been very emotional lately. May need to increase the Cymbalta dose. the nicotine patch is helping but, her came in smelling of cigarette smoke and she is still having some cravings. Will check with Dr. Brewer if she can have FSRT her in [place]. Smoking cessation counselling was given to her and I explained to her that she can not be around second hand smoke either. He is going to try quitting and has Wellbutrin and nicotine patches at home. All questions were answered. They are interested in finding a new PCP and asked for my suggestions. I suggested they follow up with an IM physician because she has multiple medical problems. I will try and give a few choices for a IM doc in [place] because they want to follow up with everything in [place]. Charges/Coding Visit Charges Inpatient E&M: 37667 Init Hosp L3
--- NOTE | 2022-07-14 14:53 | REHABEVAL_ITS ---
Admission Information Primary Diagnosis:: Debility due to right side craniotomy for resection of necrotic mass due to metastatic non-small cell lung CA. Status Changes from Prescreening?: No changes Identified Actual Problem List:: Skin Intergrity, Pain, ALteration in Cmfrt, Bowel, Constipation, Alteration in Sleep, Mobility Impaired, Self Care Deficit, Know.Dfct/Disease Process, Fluid Change-Dehydration and Alteration-Leisure Activ. Potential Problem List:: DVT, Bleeding, Infection, UTI, Aspiration, Falls, Skin Integrity and Depression Risk of Complications DVT: JOEL Hose and Sequential Compression Device Bleeding: Monitor Lab Values, Nursing to Teach Precautions for anti-coagulation therapy., Wound, if applicable, to be assessed every shift. and Stroke patients assessed for lethargy or change in status. Infection: Clinical Staff to Monitor for S/S of infection: and S/S of infection include fever, redness, warmth, etc. Urinary Tract Infection: Monitor for frequency, burning, discomfort, or incontinence. and Nursing will obtain urine sample for urinalysis and C&S when ordered. Aspiration: Clinical staff will monitor for coughing, drooling, congestion., Speech will evaluate swallowing and dsyphasia. and Nursing will monitor patient swallowing during meals. Falls: Patient will be evaluated for Fall Precautions and Patient will be placed on Fall Precautions as indicated per protocol. Skin Breakdown: Nursing will assess skin daily using assessment tool. and Nursing will place on Skin Breakdown Precautions as indicated. Pain: Clinical staff will assess patient's pain level per protocol., Medications will be given, if needed, and the pain level reassessed. and Other methods: Massage, distraction, decrease stimulus, etc. used PRN. Plan of Care Patient requires physician specializing in physical medicine and rehab oversight to provide close medical supervision of rehab issues including: Pain Management, Sleep Problems, Bowel and Bladder, Medical and co-morbidity Management, DVT prophylaxis, Rehabilitation Leadership and Coordination of treatment team Patient needs Physical Therapy: For a minimum of 1 hour and At least 5 out of 7 days Patient needs Physical Therapy to improve:: Mobility, Strengthening, Transfers, Stretching, ROM, Endurance, Stairs, Gait and Balance Patient needs Occupational Therapy: For a minimum of 1 hour and At least 5 out of 7 days Patient needs Occupational Therapy to improve ADL's incl.: Eating, Grooming, Bathing, Dressing, Toileting, Toilet transfers, Community Reintegration, Higher functioning activities, Household tasks, Adaptive Equipment, Splinting and Other activities as determined Patient requires speech therapy for: - (Seen by ST and found not to have significant deficits with swallowing and cognition and they will not picking machine operator helper for ongoing therapy) Patient requires 24/7 Rehabilitation Nursing for: Pain Issues, Identifying and preventing risk factors, Monitoring and reporting current medical conditions, Assisting with ambulation, transfer, and all ADL's, Teaching patients about disease process and medications, Family teaching, Providing safe environment, Bowel and Bladder Issues, Skin integrity and Medication Management Patient needs Maintenance Truck Driver/ Case Management for: Discharge Planning, Arranging Home Equipment or Services and Family Interventions Patient needs Dietary and Nutrition Services for: Adequate Nutrition, Nutritional Supplements and Nutritional Education Goals Patient will remain: free from falls and or injury at time of discharge. Patient will perform bed mobility at: MOD I level of assist. Patient will complete transfers from bed to chair at: MOD I level of assist. Patient will ambulate: 100 feet, with LRD and - (300 feet at standby assist on various surfaces) Patient will complete upper body dressing at: MOD I level of assist. Patient will complete lower body dressing at: MOD I level of assist. Patient will complete toileting at: MOD I level of assist. Patient will perform bathing at: Standby Assist. (when first getting home and progress to MOD I) Patient will complete grooming at: MOD I level of assist. Patient will complete home management skills at: MOD I level of assist. Patient will achieve: - (1 curb step and 3 steps w/o HR at SBA to allow access to her residence) Patient will have pain level of: of 3 or less Patient's skin will: remain intact Patient will receive: adequate nutrition. Discharge Planning Estimated Length of stay (days): 10 Anticipated D/C Destination: Home w/ family or friends Was Preadmission Assessment Accurate?: Yes
[2022-07-14] MEDS: Magnesium Hydroxide 30 ML UDC PO (15:26)
[2022-07-14 19:07] VITALS: PULSE 85; RESP 16
[2022-07-14] MEDS: Budesonide Respules 0.5 MG/2 ML AMPUL.NEB. INHALATION (19:07)
[2022-07-14 19:42] VITALS: BP 110/67; PULSE 74; RESP 16; TEMP 36.9; O2SAT 98
[2022-07-14] MEDS: Atorvastatin Calcium 20 MG Tablet PO (20:59)
[2022-07-14] MEDS: Gabapentin 100 MG Capsule PO (21:09)
[2022-07-14 22:00] VITALS: PULSE 74; RESP 16; O2SAT 98
[2022-07-15] MEDS: Bisacodyl 10 MG Suppository RC (01:30)
--- NOTE | 2022-07-15 01:36 | NURSING ---
SUPPOSITORY GIVEN FOR CONSTIPATION FOLLOWING PROTOCOL OF MILK OF MAGNESIUM ADMIN EARLIER. PT TOLERATED WELL AND WILL CONTINUE TO MONITOR.
[2022-07-15 07:21] VITALS: BP 132/83; PULSE 84; RESP 16; TEMP 36.9; O2SAT 98
[2022-07-15] MEDS: DULoxetine Hcl 60 MG Capsule PO (09:02)
[2022-07-15] MEDS: Psyllium 1 PACKET PO (09:02)
[2022-07-15] MEDS: Senna/Docusate Sodium 1 Tablet 2 TABLET PO ×2 (09:02→21:28)
[2022-07-15] MEDS: levETIRAcetam 500 MG Tablet PO ×2 (09:02→21:28)
[2022-07-15 11:15] VITALS: PULSE 75; RESP 16; O2SAT 96
[2022-07-15] MEDS: Albuterol 2.5 MG/3 ML VIAL.NEB. INHALATION (11:15)
[2022-07-15 19:12] VITALS: PULSE 95; RESP 14
[2022-07-15] MEDS: Budesonide Respules 0.5 MG/2 ML AMPUL.NEB. INHALATION (19:12)
[2022-07-15] MEDS: Ipratropium/Albuterol Sulfate 3 ML AMPUL.NEB INHALATION (19:12)
[2022-07-15 19:40] VITALS: BP 98/71; PULSE 85; RESP 16; TEMP 37.2; O2SAT 99
[2022-07-15 20:40] VITALS: O2SAT 99
[2022-07-15] MEDS: Gabapentin 100 MG Capsule PO (21:28)
[2022-07-15] MEDS: Atorvastatin Calcium 20 MG Tablet PO (21:28)
[2022-07-15] MEDS: oxyCODONE 5 MG Tablet PO (22:58)
[2022-07-16 07:22] VITALS: BP 126/82; PULSE 83; RESP 15; TEMP 36.3; O2SAT 98
[2022-07-16] MEDS: Budesonide Respules 0.5 MG/2 ML AMPUL.NEB. INHALATION ×2 (07:50→21:52)
[2022-07-16] MEDS: Ipratropium/Albuterol Sulfate 3 ML AMPUL.NEB INHALATION ×2 (07:50→21:52)
[2022-07-16 07:51] VITALS: PULSE 75; RESP 14
[2022-07-16] MEDS: Psyllium 1 PACKET PO (09:01)
[2022-07-16] MEDS: DULoxetine Hcl 60 MG Capsule PO (09:02)
[2022-07-16] MEDS: Senna/Docusate Sodium 1 Tablet 2 TABLET PO ×2 (09:02→21:43)
[2022-07-16] MEDS: levETIRAcetam 500 MG Tablet PO ×2 (09:02→21:43)
[2022-07-16 13:36] VITALS: PULSE 75; RESP 16
[2022-07-16 19:50] VITALS: BP 115/72; PULSE 91; RESP 18; TEMP 36.3; O2SAT 97
[2022-07-16] MEDS: Gabapentin 100 MG Capsule PO (19:58)
[2022-07-16] MEDS: oxyCODONE 5 MG Tablet PO (20:18)
[2022-07-16] MEDS: Atorvastatin Calcium 20 MG Tablet PO (21:43)
[2022-07-16 21:52] VITALS: PULSE 88; RESP 18; O2SAT 98
[2022-07-17 07:08] VITALS: PULSE 73; RESP 18; O2SAT 99
[2022-07-17] MEDS: Budesonide Respules 0.5 MG/2 ML AMPUL.NEB. INHALATION ×2 (07:08→19:31)
[2022-07-17] MEDS: Ipratropium/Albuterol Sulfate 3 ML AMPUL.NEB INHALATION ×3 (07:08→19:31)
[2022-07-17 07:38] VITALS: BP 133/78; PULSE 77; RESP 18; TEMP 36.4; O2SAT 98
[2022-07-17] MEDS: DULoxetine Hcl 60 MG Capsule PO (08:11)
[2022-07-17] MEDS: Senna/Docusate Sodium 1 Tablet 2 TABLET PO ×2 (08:11→20:17)
[2022-07-17] MEDS: Psyllium 1 PACKET PO (08:12)
[2022-07-17] MEDS: levETIRAcetam 500 MG Tablet PO ×2 (09:18→20:18)
[2022-07-17] MEDS: Polyethylene Glycol 3350 17 GM PACKET PO (11:03)
[2022-07-17 12:46] VITALS: PULSE 93; RESP 18
[2022-07-17 19:21] VITALS: BP 120/75; PULSE 91; RESP 18; TEMP 37.2; O2SAT 99
[2022-07-17 19:31] VITALS: PULSE 89; RESP 16; O2SAT 98
[2022-07-17] MEDS: Gabapentin 100 MG Capsule PO (20:18)
[2022-07-17] MEDS: Atorvastatin Calcium 20 MG Tablet PO (20:18)
[2022-07-17] MEDS: oxyCODONE 5 MG Tablet PO (20:18)
[2022-07-18 06:45] VITALS: PULSE 82; RESP 16; O2SAT 100
[2022-07-18 07:38] VITALS: BP 136/72; PULSE 82; RESP 16; TEMP 37.2; O2SAT 97
[2022-07-18] MEDS: Senna/Docusate Sodium 1 Tablet 2 TABLET PO ×2 (08:15→20:43)
[2022-07-18] MEDS: levETIRAcetam 500 MG Tablet PO ×2 (08:15→20:43)
[2022-07-18] MEDS: DULoxetine Hcl 60 MG Capsule PO (08:15)
[2022-07-18] MEDS: Psyllium 1 PACKET PO (08:15)
--- NOTE | 2022-07-18 11:28 | PN_ITS ---
Subjective Subjective Saurabh was seen on team rounds today. Her Geoff was present in the room. Afebrile VSS - systolic is occasionally mildly over 130. Diastolic is always within goal. Maintaining appropriate oxygen saturation on RA Oral intake is good Discussed with nursing - no problems that need addressed Reviewed the PT/OT/ST notes - doing very well in therapy. she almost fell on Monday because she did not stop and rest when tired ambulating but, she had a gait belt on and the therapist was able to grab the belt and prevent a fall. Walt was more aware of safety today and realizes she needs to listen to her body and sit down when she is tired. Medication list reviewed. Walt is c/o trouble sleeping. Tells me that last night she did not fall asleep until 2:30.....having trouble turning her brain off. Saurabh denies cephalgia, lightheadedness, vertigo, sore throat, cough, shortness of breath, abdominal pain, nausea/vomiting, calf pain and dysuria. Objective Data Objective Data Vital Signs: Vital Signs Temp Pulse Resp BP Pulse Ox O2 Del Method 98.9 F 82 16 136/72 H 97 Room Air 07/18/22 07:38 07/18/22 07:38 07/18/22 07:38 07/18/22 07:38 07/18/22 07:38 07/18/22 07:38 Oxygen Delivery Method Room Air Weight: 127 lb 4.789 oz Body Mass Index (BMI) 21.8 Intake & Output: Intake and Output for Last 24 Hours 07/16/22 07/17/22 07/18/22 23:59 23:59 23:59 Intake Total 820 / 820 Balance 820 / 820 Lab / Micro Data Result Diagrams: 07/14/22 05:26 07/14/22 05:26 Physical Exam Const alert, oriented x3 and no apparent distress General Appearance: cooperative Resp normal respiratory effort, normal air movement and clear to auscultation bilaterally Resp Narrative: Not tachypneic and no labored breathing. Effort and Inspection: able to speak in complete sentences Cardio regular rate, regular rhythm, S1 normal heart sound, S2 normal heart sound, no murmurs, no rub and no gallops Cardio Narrative: No ectopy GI normal to inspection, nondistended, normoactive bowel sounds, soft to palpation, non-tender and non-distended GI Narrative: No guarding with palpation Extremity no calf tenderness and no pedal edema Skin Skin Narrative: no rashes. General Skin Exam: no breakdown Wound Narrative: tiffanie were removed from the scalp today. the incision is intact with no shlomo- incisional erythema, no DC. Psych cooperative and affect normal Psych Narrative: she had questions about where the lesions are in the brain that need the FSRT. Asked if she is going to be OK after the radiation or will she have other spread and wants to know where the CA in her head came from. I suspect this is why she is not sleeping well. Activity / Motor Behavior: appropriate eye contact Mood & Affect: anxious Assessment & Plan Assessment/Plan (1) Debility: (2) Hx of craniotomy: (3) Metastatic lung cancer (metastasis from lung to other site): (4) Acute blood loss anemia: (5) Dehydration, mild: PLAN: resolved (6) Stage 2 moderate COPD by GOLD classification: PLAN: DC aerosols and transition to fluticasone/salmeterol, spiriva and albuterol aerosol Q4H PRN wheezing. (7) Primary adenocarcinoma of left lung: PLAN: with mets to the brain (8) Constipation: (9) Weakness of left upper extremity: (10) Marijuana use: (11) Tobacco use disorder, moderate, in early remission, dependence: (12) Insomnia: PLAN: try Trazodone at HS to help her sleep. (13) Anxiety: PLAN: Plan 1. Continue therapy 2. BMP and HH in AM 3. We discussed that she can go to [place] rather than [facility] for FSRT and she is agreeable to this....will likely only need 3 treatments. Will get the info from Dr. Brewer about how to arrange an appt. 4. Plan DC for -home with HHC vs OP 5. therapist reviewed the craniotomy prescautions with her. Charges/Coding Visit Charges Inpatient E&M: 04725 Subs Hosp L2
[2022-07-18] MEDS: Ipratropium/Albuterol Sulfate 3 ML AMPUL.NEB INHALATION (12:34)
[2022-07-18 12:36] VITALS: PULSE 80; RESP 18
--- NOTE | 2022-07-18 13:22 | CASEMGMT ---
Social Work IDT met with patient and for Team meeting. Discussed patient's progress in PT/OT/SN. Educated to [facility] with NRD 2/ and continued stay is not guaranteed with each review. Pt's goal is to return home with . can assist at home. Anticipating pt getting DC date from insurance. Offered HHC vs OP and DME needs. Therapy will provide HEP and has home weights and bands. Pt has no DC needs. IDT agreed to set DC 2/2. Plan: DC home with 2/2, no needs SUZIE AvalosW
--- NOTE | 2022-07-18 15:28 | NURSING ---
31 tiffanie removed and 1 suture, wound clean and dry with out redness or signs of infection, pt tolerated well.
[2022-07-18 19:28] VITALS: PULSE 92; RESP 16
[2022-07-18 20:30] VITALS: BP 127/62; PULSE 104; RESP 16; TEMP 36.9; O2SAT 97
[2022-07-18] MEDS: Umeclidinium Bromide Inhaler 1 PUFF INHALATION (20:35)
[2022-07-18] MEDS: Gabapentin 100 MG Capsule PO (20:36)
[2022-07-18] MEDS: Atorvastatin Calcium 20 MG Tablet PO (20:44)
[2022-07-18] MEDS: oxyCODONE 5 MG Tablet PO (20:44)
[2022-07-18] MEDS: Polyethylene Glycol 3350 17 GM PACKET PO (20:50)
[2022-07-18 21:00] VITALS: O2SAT 97
[2022-07-18] MEDS: Fluticasone/Salmeterol 232-14 Inhaler 1 PUFF INHALATION (21:10)
[2022-07-18] MEDS: traZODone 100 MG Tablet PO (21:10)
[2022-07-19 05:40] LABS: Hematocrit 31.2 % (37-47); Hemoglobin 10.3 g/dL (12.0-15.0)
[2022-07-19 06:07] LABS: Anion Gap 7 (5-15); BUN 15 mg/dL (7-18); BUN/Creat Ratio 33.3 RATIO (10-20); Calcium,Total 8.7 mg/dL (8.5-10.1); Chloride 109 mmol/L (98-107); Creatinine, Serum 0.45 mg/dL (0.55-1.02); EST Glomerular Filtration Rate 151 mL/min (>60); Est Glom Filt Rate - Afr Amer 182 mL/min (>60); Estimated Creatinine Clearance 113.37 ml/min; Glucose 110 mg/dL (74-106); Potassium 3.9 mmol/L (3.5-5.1); Sodium Level 141 mmol/L (136-145)
[2022-07-19 07:06] VITALS: BP 115/67; PULSE 70; RESP 16; TEMP 36.4; O2SAT 99
[2022-07-19] MEDS: levETIRAcetam 500 MG Tablet PO ×2 (07:59→20:07)
[2022-07-19] MEDS: Psyllium 1 PACKET PO (07:59)
[2022-07-19] MEDS: Umeclidinium Bromide Inhaler 1 PUFF INHALATION (07:59)
[2022-07-19] MEDS: DULoxetine Hcl 60 MG Capsule PO (07:59)
[2022-07-19] MEDS: Fluticasone/Salmeterol 232-14 Inhaler 1 PUFF INHALATION ×2 (08:00→20:07)
[2022-07-19] MEDS: Senna/Docusate Sodium 1 Tablet 2 TABLET PO ×2 (08:00→20:08)
--- NOTE | 2022-07-19 09:45 | PN_ITS ---
Progress Note Afebrile VSS Maintaining appropriate oxygen saturation on RA Oral intake is good Discussed with nursing - no problems that need addressed Reviewed the PT/OT/ST notes Medication list reviewed. All lab was personally reviewed. HGB is 10.3, down form 14.1 on the . BUN is 15 and stable and the creat is stable at 0.45. Walt tells me that she is feeling excellent and is very pleased with her progress in therapy. Tell me that she has rare cravings to smoke now. She denies cephalgia, lightheadedness, CP, SOB, dysuria, calf pain. Her only complaint is insomnia. Physical Exam Const alert, oriented x3 and no apparent distress General Appearance: cooperative Chest Chest: symmetrical chest wall rise Resp normal respiratory effort, normal air movement and clear to auscultation bilaterally Resp Narrative: Not tachypneic and no labored breathing. Effort and Inspection: able to speak in complete sentences Cardio regular rate, regular rhythm, S1 normal heart sound, S2 normal heart sound, no murmurs, no rub and no gallops Cardio Narrative: No ectopy GI normal to inspection, nondistended, normoactive bowel sounds, soft to palpation, non-tender and non-distended GI Narrative: No guarding with palpation Back/Spine Back/Spine Narrative: No pain with palpation of the vertebral bodies. Extremity no calf tenderness and no pedal edema Skin General Skin Exam: no breakdown Rashes: no rashes Wound Narrative: Incision remains intact with no erythema and no DC. Psych cooperative, affect normal, speech normal and denies hallucinations Attitude: calm Activity / Motor Behavior: appropriate eye contact Mood & Affect: anxious Assessment & Plan Assessment/Plan (1) Debility: (2) Hx of craniotomy: (3) Metastatic lung cancer (metastasis from lung to other site): (4) Acute blood loss anemia: (5) Dehydration, mild: PLAN: resolved (6) Stage 2 moderate COPD by GOLD classification: PLAN: DC aerosols and transition to fluticasone/salmeterol, spiriva and albuterol aerosol Q4H PRN wheezing. (7) Primary adenocarcinoma of left lung: PLAN: with mets to the brain (8) Constipation: (9) Weakness of left upper extremity: (10) Marijuana use: (11) Tobacco use disorder, moderate, in early remission, dependence: (12) Insomnia: PLAN: try Trazodone at HS to help her sleep. (13) Anxiety: PLAN: Plan 1. Continue therapy 2. BMP and HH in AM 3. We discussed that she can go to [place] rather than [facility] for FSRT and she is agreeable to this....will likely only need 3 treatments. Will get the info from Dr. Brewer about how to arrange an appt. 4. Plan DC for -home with HHC vs OP 5. therapist reviewed the craniotomy prescautions with her. Visit Charges Inpatient E&M: 43025 Subs Hosp L2
[2022-07-19] MEDS: Pantoprazole Sodium 40 MG Tablet PO ×2 (11:41→20:07)
[2022-07-19] MEDS: Polyethylene Glycol 3350 17 GM PACKET PO (11:46)
--- NOTE | 2022-07-19 15:57 | CHAPLAIN ---
Type of Pastoral Visit _x__ Initial Visit ___ Follow-up Visit ___ On-call Visit ___ General Patient Visit ___ Spiritual Assessment ___ Family Conference ___ Bereavement ___ Rapid Response ___ Code Blue ___ Other (describe below) Pastoral Care Referral From _x__ Patient ___ Family ___ Nurse ___ Physician ___ Driving Teacher ___ Federal Java Developer ___ Other (describe below) Sacrament/Intervention _x__ Active listening ___ Anointing ___ Advent ___ Bereavement ___ Communion _x__ Hazel exploration ___ _x__ Life review _x__ Prayer ___ Reconciliation ___ Sacrament of Sick _x__ Supportive presence ___ Wedding ___ Other (describe below) Pastoral Comments patient is eager to tell her story and is happy to have this green belt come to see her; pt gives thanks to God for helping her through this situation and sees that it could have been much worse; pt has new appreciation for her and what he does; pt welcomes prayer and presence; pt asked for a Bible and one was given to her
[2022-07-19 20:00] VITALS: PULSE 82; RESP 16; O2SAT 96
[2022-07-19] MEDS: Atorvastatin Calcium 20 MG Tablet PO (20:07)
[2022-07-19] MEDS: Gabapentin 100 MG Capsule PO (20:07)
[2022-07-19] MEDS: traZODone 100 MG Tablet PO (20:08)
[2022-07-19 22:00] VITALS: BP 114/71; PULSE 82; RESP 16; TEMP 36.3; O2SAT 96
--- NOTE | 2022-07-20 02:43 | NURSING ---
Reviewed and agree with Jose GONG, documentation and assessment charting.
[2022-07-20] MEDS: DULoxetine Hcl 60 MG Capsule PO (08:12)
[2022-07-20] MEDS: levETIRAcetam 500 MG Tablet PO ×2 (08:12→20:16)
[2022-07-20] MEDS: Fluticasone/Salmeterol 232-14 Inhaler 1 PUFF INHALATION ×2 (08:12→20:16)
[2022-07-20] MEDS: Umeclidinium Bromide Inhaler 1 PUFF INHALATION (08:12)
[2022-07-20] MEDS: Psyllium 1 PACKET PO (08:12)
[2022-07-20] MEDS: Senna/Docusate Sodium 1 Tablet 2 TABLET PO ×2 (08:12→20:17)
[2022-07-20 08:20] VITALS: BP 98/57; PULSE 72; RESP 14; TEMP 36.4; O2SAT 95
--- NOTE | 2022-07-20 12:15 | PCM.PN.BLA ---
Progress Note AF BP at 0820 this AM was a little lower than normal at 98/57.....MAP is 70 which is acceptable. Will continue to monitor. Nursing is not keeping track of I&O but, her MM are dry and I suspect the BP is a little low due to dehydration. Large BM this AM Stool is heme + She was started on Protonix yesterday. she was on steroids for the brain mass and has had a lot of stress recently.....possible ulcer related to these 2 things. Denies ABd pain, nausea, vomiting. Has never had an ulcer. No diarrhea. No black tarry stool. Denies lightheadedness. Denies SOB. Alert and oriented X3. No distress no tachypnea. L - had a few coarse crackles in the R base initially but, they completely resolved after a few deep breaths. Admits to not using her IS regularly. HRRR MM are very dry. BUN and CREAT ratio has been increasing. Assessment & Plan Assessment/Plan (1) Debility: (2) Metastatic lung cancer (metastasis from lung to other site): (3) Hx of craniotomy: (4) Insomnia: (5) Weakness of left upper extremity: (6) Heme + stool: PLAN: Plan 1. Have nursing call to schedule an appt for Walt to follow up in [place] at [facility] to arrange FSRT. Referral sent today. D/W Dr. Brewer and he will call [facility] on Monday to make sure she has an appropriate appt scheduled. 2. DC home tomorrow. 3. Continue the Protonix for suspected PUD due to stress and steroids. 4. Recheck an HH in the AM 5. Encouraged her to increase her fluid intake and to use the IS every 1-2 hours while awake for atelectasis in the bases. Visit Charges Inpatient E&M: 06015 Subs Hosp L2
[2022-07-20] MEDS: oxyCODONE 5 MG Tablet PO (13:07)
--- NOTE | 2022-07-20 13:26 | NURSING ---
Faxed consult, H&P, and face sheet to [facility] per their request. Waiting for appt time.
--- NOTE | 2022-07-20 16:33 | PCM.DC ---
Discharge Instructions Diet Discharge Diet: No restrictions Activity Discharge Activity: May Not Drive and May Shower Dressing / Incision Call your doctor if your incision/area has: Continuous Slow Oozing, Sudden Increased Bleeding, Increased Pain/ Swelling, Increased Redness, Foul Smelling Discharge and Swelling at the incision site Call your doctor if you observe: Fever of 101 or Higher, Numbness or Tingling, Inability to urinate, Inability to have a bowel movement, Shortness of breath, Dizziness, Fainting spells, Swelling in the ankles, Chest pain, Increased palpitations (irregular heartbeat), Calf discomfort and Uncontrolled pain Suture Line Care: Avoid Pulling/Pushing and Avoid Pinching/Bending Change Dressing in: do not change dressing (No dressing needed) Cleanse incision/area with: Soap & Water (and then pat dry) Follow Up Care Please Follow Up With: Ailyn Alvarez MD When: In 7-10days Test Results: Test results from this visit will be discussed in further detail at your follow-up appointment, if applicable. Pending Tests Upon Discharge: none Discharge Plan Admission Admit Date/Time: 07/13/22 17:30 Primary Reason for Your Visit: Debility due to craniotomy to remove a metastatic tumor. Attending Provider: Tona Rutherford Primary Care Provider: Narciso Chávez Instructions Additional Instructions / Restrictions: 1. When walking outside the house use a cane or walker to help with balance and prevent falls. 2. Do NOT lift more than 5 lbs until seen by the neurosurgeon. 3. Do NOT do any activity or exercise that makes you sweat. 4. Do NOT bind over so your head is lower than your heart. 5. No driving until the surgeon releases you to drive. 6. NO tub baths, hot tubs, or swimming pools until the surgeon tells you this is OK. You may shower. 7. If you drive more than 45minutes in a car stop every hour and get out and walk for a few minutes. This helps to prevent blood clots in the legs. 8. You had some blood in your stool while in rehab and your blood count has dropped a little. Some blood loss is expected with surgery. When you have a stressful event, such as a major surgery this can cause ulcerations in the stomach. You were on Steroids to control the swelling in the brain and steroids can cause ulcers as well. The blood in your stool may just be from hemorrhoids and a hard BM. I have put you on a medication called Protonix to decrease the acid in the stomach. This medication treats ulcers. I would take this for 1 month and then consider stopping if no nausea, vomiting or abd pain and the blood count is stable. Your primary care doctor can order a CBC for you in 1 week and then in 1 month. 9. [facility] has a smoking cessation program. If you fall off the wagon or are tempted to smoke please call the hospital at [phone] and ask to be connected to the smoking cessation coordinator. They will help you. 10. We had to change your inhalers in the hospital because the pharmacy does not have the Dulera. You will resume your regular inhalers when you go home. 11. Your new PCP will be Ailyn Alvarez. She is an internal medicine doctor. 12. Since you are having some problem with memory it would be a good idea to keep a calendar/journal/memory book in the same place every day in your house so you will know where to look for important information such as Fire dept., police dept., appts with doctors, a list of you medications, important phone numbers you use frequently, etc. 13. Having cancer is a scary thing. You are having a lot of doctors appts, a lab of testing and you will sometimes feel like all you do is go to the doctor. It is easy to get depressed. The signs of depression are not sleeping well, loss of appetite, irritability, trouble concentrating, memory difficulties, frequent crying at things that normally wouldn't bother you, loss of sex drive.......If you are experiencing these things call your PCP, you may need an adjustment of the antidepressant regimen. There are also cancer support groups, sometimes it is good to talk with others who are going through the same thing you are....you are not alone. Call me if you need help and want to talk. Reach out to friends. If you are christian a chairman & ceo or cryptoanalysis teacher could be a good person for you to talk to. 14. It was a pleasure to meet you and [place]. Thank you for your hard work in therapy......you did very well. If you or [facility] have any questions after you leave rehab please do not hesitate to call me. Office: [phone] CELL: [phone] Discharge Orders/Prescriptions Prescriptions: New sennosides-docusate sodium [Stool Softener-Stimulant Laxat] 8.6-50 mg Tablet 2 tab PO BID Qty: 120 0RF pantoprazole 40 mg Tablet,Delayed Release (Dr/Ec) 40 mg PO DAILY Qty: 44 0RF Rx Instructions: Tke 1 tab 2 X's a day for 14 days and then decrease to once daily nicotine [Nicoderm CQ] 7 mg/24 hr patch 24 hour 1 patch transdermal Q24H Qty: 14 1RF Rx Instructions: start 7 mg patches after you run out of 14 mg patches Continued rosuvastatin 10 mg tablet 10 mg PO QHS duloxetine [Cymbalta] 60 mg capsule,delayed release(DR/EC) 60 mg PO DAILY ibandronate [Boniva] 150 mg tablet 150 mg PO QMONTH albuterol sulfate [Ventolin HFA] 90 mcg/actuation HFA aerosol inhaler 2 puff inhalation Q4H PRN (Reason: shortness of breath or wheezing) Qty: 18 6RF biotin 10 mg tablet 10 mg PO DAILY ascorbate calcium (vitamin C) 500 mg tablet 500 mg PO DAILY glucosamine-chondroitin [Osteo Bi-Flex] 250-200 mg tablet 1 tab PO DAILY Rx Instructions: give after food/meal potassium gluconate 600 mg (99 mg) tablet 600 mg PO DAILY cyanocobalamin (vitamin B-12) [Vitamin B-12] 1,000 mcg tablet 1,000 mcg PO DAILY budesonide-formoterol [Symbicort] 160-4.5 mcg/actuation HFA aerosol inhaler 2 puff inhalation BID Rx Instructions: administer with spacer, rinse mouth after each use Spiriva Respimat 2.5 mcg/actuation mist 1 inh inhalation QDAY Rx Instructions: administer at approximately the same time(s) each day nicotine [Nicoderm CQ] 14 mg/24 hr Patch 24 Hour 1 patch TRANSDERMAL DAILY Qty: 14 0RF levetiracetam [Keppra] 500 mg Tablet 500 mg PO Q12H Qty: 60 0RF oxycodone 5 mg Tablet 5 mg PO Q6H PRN (Reason: pain ) 7 Days Qty: 28 0RF Rx Instructions: pain 4-10 tizanidine 4 mg capsule 4 mg PO TID PRN (Reason: MUSCLE RELAXER) Qty: 30 0RF psyllium husk [Daily Fiber] 0.4 gram capsule 0.4 g PO DAILY Qty: 30 0RF Discontinued polyethylene glycol 3350 [Miralax] 17 gram Powder In Packet 17 g PO DAILY PRN (Reason: Constipation) No Action ondansetron HCl [Zofran] 4 mg Tablet 4 mg PO Q8H PRN (Reason: nausea/vomitting) Other Ambulatory Orders: CBC-Complete Blood Cnt No Diff (Routine) Timeframe: 1 Week Facility: [facility] - Location: Laboratory Ordered By: Dr. Tona Rutherford Referrals / Follow Up: Kit Bennett [Other] - 08/02/22 10:00 am [facility] [Other] - 07/25/22 1:30 pm Ailyn Alvarez MD [Med Staff - Active Staff] - 08/03/22 9:00 am (Please arrive 15 minutes early) Luis Licona MD [Med Staff - Active Staff] - 08/01/22 2:30 pm () Disposition Disposition (needs filled in before D/C Order can be placed): Home, Self Care
[2022-07-20 19:22] VITALS: BP 114/70; PULSE 89; RESP 16; TEMP 36.4; O2SAT 98
[2022-07-20] MEDS: Gabapentin 100 MG Capsule PO (20:15)
[2022-07-20] MEDS: traZODone 100 MG Tablet PO (20:15)
[2022-07-20] MEDS: Atorvastatin Calcium 20 MG Tablet PO (20:16)
[2022-07-20 20:20] VITALS: PULSE 89; RESP 16; O2SAT 98
[2022-07-21 05:37] LABS: Hematocrit 30.9 % (37-47); Hemoglobin 9.8 g/dL (12.0-15.0)
[2022-07-21] MEDS: Alendronate Sodium 70 MG Tablet PO (06:43)
[2022-07-21] MEDS: Senna/Docusate Sodium 1 Tablet 2 TABLET PO (08:09)
[2022-07-21] MEDS: Umeclidinium Bromide Inhaler 1 PUFF INHALATION (08:09)
[2022-07-21] MEDS: levETIRAcetam 500 MG Tablet PO (08:09)
[2022-07-21] MEDS: DULoxetine Hcl 60 MG Capsule PO (08:09)
[2022-07-21] MEDS: Pantoprazole Sodium 40 MG Tablet PO (08:09)
[2022-07-21] MEDS: Psyllium 1 PACKET PO (08:09)
[2022-07-21] MEDS: Fluticasone/Salmeterol 232-14 Inhaler 1 PUFF INHALATION (08:09)
[2022-07-21 08:21] VITALS: BP 109/71; PULSE 85; RESP 16; TEMP 36.8; O2SAT 97
--- NOTE | 2022-07-21 10:33 | DS.PCM_ITS ---
Providers Date of Admission: 07/13/22 Date of Discharge: 07/21/22 Primary Care Physician: Dr. Alta Alvarez Reason For Visit: CRANIECTOMY Diagnosis Discharge Diagnosis (1) Debility: Status: Acute Code(s): R53.81 - Other malaise Plan: Due to recent craniotomy to remove a large necrotic metastatic brain lesion at [facility]. (2) Metastatic lung cancer (metastasis from lung to other site): Status: Acute Code(s): C34.90 - Malignant neoplasm of unspecified part of unspecified bronchus or lung Plan: Follow up with Dr. Licona on 08/01/22. She has an appt to follow up at [facility] in [place] to start FSRT for metastatic brain lesions. (3) Hx of craniotomy: Status: Acute Code(s): Z98.890 - Other specified postprocedural states Plan: Emanuel have been removed and the incision is intact without erythema or DC. (4) Insomnia: Status: Acute Code(s): G47.00 - Insomnia, unspecified Plan: she takes Tizanidine at home to help her sleep and it is effective. (5) Weakness of left upper extremity: Status: Acute Code(s): R29.898 - Other symptoms and signs involving the musculoskeletal system (6) Heme + stool: Status: Acute Code(s): R19.5 - Other fecal abnormalities Plan: Started on Protonix for possible PUD ulceration due to surgery, anxiety and steroids. (7) Tobacco use disorder, moderate, in early remission, dependence: Status: Acute Code(s): F17.201 - Nicotine dependence, unspecified, in remission Plan: Cravings controlled with Nicoderm CQ (8) Acute blood loss anemia: Status: Acute Code(s): D62 - Acute posthemorrhagic anemia (9) Stage 2 moderate COPD by GOLD classification: Status: Acute Code(s): J44.9 - Chronic obstructive pulmonary disease, unspecified Plan 1. DC home with her [place]. Given a HEP by therapy and has weights at home.....he was cautioned not to allow her to lift more than 5 lbs. 2. Has follow-up scheduled with Dr. Licona on 08/01/2022. 3. She has an appointment in [place] at [facility] on 07/25/2022 for FSRT tx for metastatic lung CA to the brain. 4. F/U with PCP in 1-2 weeks. Medications at Discharge Home Medications duloxetine 60 mg capsule,delayed release (Cymbalta) 60 mg PO DAILY anxiety depression 01/13/21 ibandronate 150 mg tablet (Boniva) 150 mg PO QMONTH 01/13/21 rosuvastatin 10 mg tablet 10 mg PO QHS cholesterol 01/13/21 albuterol sulfate 90 mcg/actuation aerosol inhaler (Ventolin HFA) 2 puff inhalation Q4H PRN shortness of breath or wheezing #18 grams 12/13/21 ascorbate calcium (vitamin C) 500 mg tablet 500 mg PO DAILY 03/03/22 biotin 10 mg tablet 10 mg PO DAILY 03/03/22 glucosamine-chondroitin 250 mg-200 mg tablet (Osteo Bi-Flex) 1 tab PO DAILY 03/03/22 potassium gluconate 600 mg (99 mg) tablet 600 mg PO DAILY 03/03/22 cyanocobalamin (vitamin B-12) 1,000 mcg tablet (Vitamin B-12) 1,000 mcg PO DAILY 03/24/22 budesonide-formoterol HFA 160 mcg-4.5 mcg/actuation aerosol inhaler (Symbicort) 2 puff inhalation BID COPD 07/13/22 ondansetron HCl 4 mg tablet 4 mg PO Q8H PRN nausea/vomitting 07/13/22 tiotropium bromide 2.5 mcg/actuation mist for inhalation (Spiriva Respimat) 1 inh inhalation QDAY COPD 07/13/22 levetiracetam 500 mg tablet (Keppra) 500 mg PO Q12H seizure prevention #60 tabs 07/21/22 nicotine 14 mg/24 hr daily transdermal patch (Nicoderm CQ) 1 patch transdermal DAILY smoking sensation #14 ea 07/21/22 nicotine 7 mg/24 hr daily transdermal patch (Nicoderm CQ) 1 patch transdermal Q24H #14 ea 07/21/22 oxycodone 5 mg tablet 5 mg PO Q6H PRN pain 7 days #28 tabs 07/21/22 pantoprazole 40 mg tablet,delayed release 40 mg PO DAILY #44 tabs 07/21/22 psyllium husk 0.4 gram capsule (Daily Fiber) 0.4 g PO DAILY supplement #30 caps 07/21/22 sennosides 8.6 mg-docusate sodium 50 mg tablet (Stool Softener-Stimulant L axative) 2 tab PO BID #120 tabs 07/21/22 tizanidine 4 mg capsule 4 mg PO TID PRN MUSCLE RELAXER #30 caps 07/21/22 Hospital Course Operations - (07/08/22 at [facility] - R side craniotomy to remove a necrotic metastatic brain tumor.) Procedures None Summary of Care Provided Minutes Spent on Discharge: 40 Hospital Course: ANNA MALIN, is a 62 YO F with a PMH of tobacco dependence, COPD, anxiety, chronic back pain, osteoporosis, hyperlipidemia, diverticulosis, colon polyps and L lung adeno CA with hx of lobectomy in 2020 who presented to the emergency department at [facility] on 07/05/2022 complaining of right side headache, confusion and left side weakness. She had fallen out of bed a few times in the preceding several days.? A CTA of the head and neck showed a 4.6 cm necrotic mass in the right frontal lobe with extensive adjacent vasogenic edema.? 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 She was transferred to [facility] for further W/U.? She was started on Decadron and a neurosurgery consult was requested.? On 07/08/22 she underwent a R frontal craniotomy for resection of the mass.? CT head on 07/08/2022 postop showed improved mass-effect and edema.? An MRI of the brain was obtained within 24 hours of the OR and it showed stable edema, improved mass- effect and a stable small rim-enhancing lesion in the left precentral gyrus.? There was a stable osseous lesion in the right orbit.? While at [facility] Anna was seen by PT/OT/ST and transfer to an acute inpatient rehab unit was recommended at discharge.? Saurabh was transferred to the acute inpatient rehab floor at [facility] on 07/13/2022 for 3 hours of therapy daily to restore function/independence at or near her prior level.? She is to return to [facility] for FSRT in 2 weeks post DC.? Hemoglobin 1 day following transfer was 11. It later dropped to 10.3 and on 07/21/2022 was 9.8. She was started on Protonix during her admission to rehab and Hemoccult stool was checked which was positive. Her hydration was appro ximately the same at admission and DC so I do not suspect the drop in HGB is due to hydration. I suspect that she may have PUD related to stress, anxiety and steroids to control the cerebral edema. She had no nausea, epigastric pain or vomiting and she denied a prior hx of PUD. She was given a lab requisition at [place] to have a CBC done in 1 week. Anna did well in therapy and at the time of DC. At the time of discharge Saurabh was independent with eating, grooming and bathing. She required minimal assistance with upper body dressing but she was standby assist for lower body dressing. She was independent with bathing, transfer, toileting and tub/shower transfer. She was able to ambulate 500 feet independently on various surfaces. She was more aware of her fatigue levels and the importance of taking a rest break. She was able to ascend/descend to 6 inch steps and three 4 inch steps at standby assist using 1 handrail. Saruabh was discharged from acute rehab on 07/21/2022 and will have a follow-up appointment with [facility] in [place] on 07/25/2022 to arrange FSRT for metastatic brain lesions. She has an appt scheduled with Dr. Licona on 08/01/2022 and an appt with a new PCP, Dr. Alta Alvarez. Physical Exam Const alert, oriented x3 and no apparent distress General Appearance: cooperative and well kempt HEENT normocephalic Eyes PERRL, EOMs intact bilaterally, no scleral icterus and normal visual crenshaw by confrontation General Eye: normal appearance of both eyes Conjunctiva: conjunctiva normal Sclera: sclera normal Neck supple, no JVD and no carotid bruits General: trachea midline Chest Chest: symmetrical chest wall rise Resp normal respiratory effort, normal air movement and clear to auscultation bilaterally Resp Narrative: Not tachypneic and no labored breathing. Effort and Inspection: able to speak in complete sentences Cardio regular rate, regular rhythm, S1 normal heart sound, S2 normal heart sound, no murmurs, no rub and no gallops Cardio Narrative: No ectopy GI normal to inspection, nondistended, normoactive bowel sounds, soft to palpation, non-tender and non-distended GI Narrative: No guarding with palpation Back/Spine no CVA tenderness Back/Spine Narrative: No pain with palpation of the vertebral bodies. Extremity no calf tenderness and no pedal edema Skin Skin Narrative: no rashes. General Skin Exam: no breakdown; Negative for jaundice Rashes: no rashes Wounds: wounds noted Wound Narrative: [place] have all been removed from the craniotomy incision and the incision remains intact with no shlomo-incisional erythema, no discharge and no significant swelling. Neuro oriented x3, CN's II-XII intact bilaterally and moves all extremities Neuro Narrative: She has weakness primarily of the LUE.......drifts but does not touch the bed in 10 sec. No drift in the L leg. No ataxia. No sensory deficits. tongue pro trudes on the midline. No neglect. No visual loss. Distracted easily. Thinks she can do more than she can. Poor safety awareness. Psych mental status grossly normal, thought process normal, cooperative, affect normal, speech normal, denies hallucinations, denies homicidal ideation and denies suicidal ideation Appearance: grossly normal, appropriate and well kempt Attitude: calm Activity / Motor Behavior: appropriate eye contact; Negative for psychomotor agitation, fidgetting or restless Speech: normal speech Mood & Affect: euthymic mood and anxious Weight / BMI Weight Weight: 137 lb 9.095 oz Body Mass Index (BMI) 21.8 ABG / Lab / Microbiology Data Result Diagrams: 07/21/22 05:07 07/19/22 05:05 Laboratory: Laboratory Results - last 24 hr 07/21/22 05:07: Hgb 9.8 L, Hct 30.9 L Microbiology: Microbiology 07/19/22 16:30 Stool Stool Occult Blood (OMAYRA) - Final Occult Blood Positive D/C Instructions Discharge Diet: No restrictions Call your doctor if your incision/area has: Continuous Slow Oozing, Sudden Increased Bleeding, Increased Pain/ Swelling, Increased Redness, Foul Smelling Discharge and Swelling at the incision site Call your doctor if you observe: Fever of 101 or Higher, Numbness or Tingling, Inability to urinate, Inability to have a bowel movement, Shortness of breath, Dizziness, Fainting spells, Swelling in the ankles, Chest pain, Increased palpitations (irregular heartbeat), Calf discomfort and Uncontrolled pain Suture Line Care: Avoid Pulling/Pushing and Avoid Pinching/Bending Cleanse incision/area with: Soap & Water (and then pat dry) Pending Tests Upon Discharge: none Please Follow Up With: Ailyn Alvarez MD When: In 7-10days Meaningful Use Info Meaningful Use Diagnoses (Choose all that apply): None applicable Discharge Plan Admission Admit Date/Time: 07/13/22 17:30 Primary Reason for Your Visit: Debility due to craniotomy to remove a metastatic tumor. Attending Provider: Tona Rutherford Primary Care Provider: Narciso Chávez Instructions Additional Instructions / Restrictions: 1. When walking outside the house use a cane or walker to help with balance and prevent falls. 2. Do NOT lift more than 5 lbs until seen by the neurosurgeon. 3. Do NOT do any activity or exercise that makes you sweat. 4. Do NOT bind over so your head is lower than your heart. 5. No driving until the surgeon releases you to drive. 6. NO tub baths, hot tubs, or swimming pools until the surgeon tells you this is OK. You may shower. 7. If you drive more than 45minutes in a car stop every hour and get out and walk for a few minutes. This helps to prevent blood clots in the legs. 8. You had some blood in your stool while in rehab and your blood count has dropped a little. Some blood loss is expected with surgery. When you have a stressful event, such as a major surgery this can cause ulcerations in the stomach. You were on Steroids to control the swelling in the brain and steroids can cause ulcers as well. The blood in your stool may just be from hemorrhoids and a hard BM. I have put you on a medication called Protonix to decrease the acid in the stomach. This medication treats ulcers. I would take this for 1 month and then consider stopping if no nausea, vomiting or abd pain and the blood count is stable. Your primary care doctor can order a CBC for you in 1 week and then in 1 month. 9. [facility] has a smoking cessation program. If you fall off the wagon or are tempted to smoke please call the hospital at [phone] and ask to be connected to the smoking cessation coordinator. They will help you. 10. We had to change your inhalers in the hospital because the pharmacy does not have the Dulera. You will resume your regular inhalers when you go home. 11. Your new PCP will be Ailyn Alvarez. She is an internal medicine doctor. 12. Since you are having some problem with memory it would be a good idea to keep a calendar/journal/memory book in the same place every day in your house so you will know where to look for important information such as Fire dept., police dept., appts with doctors, a list of you medications, important phone numbers you use frequently, etc. 13. Having cancer is a scary thing. You are having a lot of doctors appts, a lab of testing and you will sometimes feel like all you do is go to the doctor. It is easy to get depressed. The signs of depression are not sleeping well, loss of appetite, irritability, trouble concentrating, memory difficulties, freq uent crying at things that normally wouldn't bother you, loss of sex drive.......If you are experiencing these things call your PCP, you may need an adjustment of the antidepressant regimen. There are also cancer support groups, sometimes it is good to talk with others who are going through the same thing you are....you are not alone. Call me if you need help and want to talk. Reach out to friends. If you are gnosticist a water supervisor or principal engineer could be a good person for you to talk to. 14. It was a pleasure to meet you and [place]. Thank you for your hard work in therapy......you did very well. If you or [place] have any questions after you leave rehab please do not hesitate to call me. Office: [phone] CELL: [phone] Discharge Orders/Prescriptions Prescriptions: New sennosides-docusate sodium [Stool Softener-Stimulant Laxat] 8.6-50 mg Tablet 2 tab PO BID Qty: 120 0RF pantoprazole 40 mg Tablet,Delayed Release (Dr/Ec) 40 mg PO DAILY Qty: 44 0RF Rx Instructions: Tke 1 tab 2 X's a day for 14 days and then decrease to once daily nicotine [Nicoderm CQ] 7 mg/24 hr patch 24 hour 1 patch transdermal Q24H Qty: 14 1RF Rx Instructions: start 7 mg patches after you run out of 14 mg patches Continued rosuvastatin 10 mg tablet 10 mg PO QHS duloxetine [Cymbalta] 60 mg capsule,delayed release(DR/EC) 60 mg PO DAILY ibandronate [Boniva] 150 mg tablet 150 mg PO QMONTH albuterol sulfate [Ventolin HFA] 90 mcg/actuation HFA aerosol inhaler 2 puff inhalation Q4H PRN (Reason: shortness of breath or wheezing) Qty: 18 6RF biotin 10 mg tablet 10 mg PO DAILY ascorbate calcium (vitamin C) 500 mg tablet 500 mg PO DAILY glucosamine-chondroitin [Osteo Bi-Flex] 250-200 mg tablet 1 tab PO DAILY Rx Instructions: give after food/meal potassium gluconate 600 mg (99 mg) tablet 600 mg PO DAILY cyanocobalamin (vitamin B-12) [Vitamin B-12] 1,000 mcg tablet 1,000 mcg PO DAILY budesonide-formoterol [Symbicort] 160-4.5 mcg/actuation HFA aerosol inhaler 2 puff inhalation BID Rx Instructions: administer with spacer, rinse mouth after each use Spiriva Respimat 2.5 mcg/actuation mist 1 inh inhalation QDAY Rx Instructions: administer at approximately the same time(s) each day nicotine [Nicoderm CQ] 14 mg/24 hr Patch 24 Hour 1 patch TRANSDERMAL DAILY Qty: 14 0RF levetiracetam [Keppra] 500 mg Tablet 500 mg PO Q12H Qty: 60 0RF oxycodone 5 mg Tablet 5 mg PO Q6H PRN (Reason: pain ) 7 Days Qty: 28 0RF Rx Instructions: pain 4-10 tizanidine 4 mg capsule 4 mg PO TID PRN (Reason: MUSCLE RELAXER) Qty: 30 0RF psyllium husk [Daily Fiber] 0.4 gram capsule 0.4 g PO DAILY Qty: 30 0RF Discontinued polyethylene glycol 3350 [Miralax] 17 gram Powder In Packet 17 g PO DAILY PRN (Reason: Constipation) No Action ondansetron HCl [Zofran] 4 mg Tablet 4 mg PO Q8H PRN (Reason: nausea/vomitting) Other Ambulatory Orders: CBC-Complete Blood Cnt No Diff (Routine) Timeframe: 1 Week Facility: [facility] - Location: Laboratory Ordered By: Dr. Tona Rutherford Referrals / Follow Up: Kit Bennett [Other] - 08/02/22 10:00 am [facility] [Other] - 07/25/22 1:30 pm Ailyn Alvarez MD [Med Staff - Active Staff] - 08/03/22 9:00 am (Please arrive 15 minutes early) Luis Licona MD [Med Staff - Active Staff] - 08/01/22 2:30 pm () Disposition Disposition (needs filled in before D/C Order can be placed): Home, Self Care Charges/Coding Visit Charges Inpatient E&M: 28863 Disch Hosp >30min
--- NOTE | 2022-07-21 10:34 | NURSING ---
Bong for Dr. Wyatt's office requesting to make an appt for pt.
[2022-07-21] MEDS: oxyCODONE 5 MG Tablet PO (11:38)
== END 2022-07-21 12:38 | disposition home or self-care (01) | DRG 862 ==
PROVIDERS: Admitting Provider Internal Medicine; PCP Family Medicine; Visit Provider Internal Medicine
DX: Z48.811 Encounter for surgical aftercare following surgery on the nervous system (principal); D62 Acute posthemorrhagic anemia; C34.92 Malignant neoplasm of unspecified part of left bronchus or lung; C79.31 Secondary malignant neoplasm of brain; E78.5 Hyperlipidemia, unspecified; E86.0 Dehydration; J44.9 Chronic obstructive pulmonary disease, unspecified; G47.00 Insomnia, unspecified; Z79.51 Long term (current) use of inhaled steroids; Z79.83 Long term (current) use of bisphosphonates; Z87.891 Personal history of nicotine dependence; Z79.899 Other long term (current) drug therapy; R29.898 Other symptoms and signs involving the musculoskeletal system
CPT/HCPCS: 36415; 80048; 80053; 82274; 83735; 84100; 85014; 85018; 85025; 94640; 94668; 96125; 97110; 97112; 97116; 97162; 97166; 97530; 97535; 97802; 99406

== ENCOUNTER → 2022-07-27 | Outpatient (CLI) | payer MEDICAID, SELFPAY ==
[2022-07-27 13:44] LABS: Hematocrit 34.7 % (37-47); Hemoglobin 11.4 g/dL (12.0-15.0); Mean Corp Hgb Conc 32.9 g/dL (32-36); Mean Corpuscular Hgb 32.8 pg (27.0-32.0); Mean Corpuscular Volume 99.7 fL (81-99); Mean Platelet Vol. 9.4 fl (6.2-12.0); Platelet Count 279 K/mm3 (150-450); RBC Distribution Width CV 14.3 % (11.6-14.6); RBC Distribution Width SD 52.5 fl (35.1-43.9); Red Blood Count 3.48 M/mm3 (4.2-5.4); White Blood Count 4.9 K/mm3 (4.4-11.0)
== END | disposition home or self-care (01) ==
LOC: LAB 13:13
PROVIDERS: PCP Family Medicine; Referring Provider Internal Medicine; Visit Provider Internal Medicine
DX: D62 Acute posthemorrhagic anemia (principal); R19.5 Other fecal abnormalities
CPT/HCPCS: 36415; 85027

== ENCOUNTER → 2022-09-05 | Outpatient (CLI) | payer MEDICAID, SELFPAY ==
--- NOTE | 2022-09-05 14:37 | BI_ITS ---
MAMMOGRAPHY - BILATERAL SCREENING REASON FOR EXAM: Female, 62 years old. Routine annual screening examination. PERTINENT HISTORY: Non-contributory. History of lung cancer and brain tumor. TECHNIQUE: Digital bilateral breast debbie (3D mammographic acquisition) in the CC and MLO projections. 2-D mediolateral oblique (MLO) and craniocaudad (CC) views of both breasts were obtained. CAD: Full Field Digital Mammography with Computer Added Detection was performed. COMPARISON: Comparison is made with prior study dated September 03, 2021 and May 26, 2020. FINDINGS: Breast Composition: The breasts are heterogeneously dense, which may obscure small masses. There are no dominant masses or suspicious calcifications. Stable small benign-appearing bilateral axillary lymph nodes. No other significant abnormalities are identified. There has been no significant change since the prior study. BI/SCRN MAMM (CAD)W/DEBBIE BILAT IMPRESSION: Stable bilateral screening mammogram. Yearly follow-up mammogram recommended. (A) ASSESSMENT CATEGORY: BIRADS Category 2: Benign. A letter regarding these results will be sent to the patient by the facility within 30 days. Approximately 10% of breast cancers are not detected by mammography. A normal mammogram should not delay biopsy of a clinically suspicious abnormality. [id number] Electronically Signed: David Brar MD at 15:28 EDT ,
== END | disposition home or self-care (01) ==
LOC: OPBI 14:35
PROVIDERS: PCP Internal Medicine; Referring Provider Internal Medicine Hematology & Oncology; Visit Provider Internal Medicine Hematology & Oncology
DX: Z12.31 Encounter for screening mammogram for malignant neoplasm of breast (principal)
CPT/HCPCS: 77063; 77067

== ENCOUNTER → 2022-10-11 | Outpatient (CLI) | payer MEDICAID, SELFPAY ==
--- NOTE | 2022-10-11 07:01 | CT_ITS ---
STUDY: CT CHEST WITH CONTRAST REASON FOR EXAM: Female, 62 years old. F/U NSCLC PET UPTAKE IN MEDIASTINUM. History of lung cancer and prior left upper lobe resection. History of brain metastasis. RADIATION DOSAGE (If Supplied By Facility): CTDIvol = ( 6.7 ) mGy, DLP = ( 261.85 ) mGycm TECHNIQUE: Transaxial imaging was performed following intravenous administration of IV 100mL Isovue-370. Multiplanar coronal and sagittal images were reformatted. Individualized dose optimization techniques were used for this CT. COMPARISON: Comparison is made with prior examination of February 24, 2022. FINDINGS: CHEST A right-sided portacatheter is seen with the tip in the superior vena cava. Tiny subcentimeter hypodensities seen in the right lobe of the thyroid as well as in the inferior aspect of the left lobe of the thyroid. There is volume loss in the left hemithorax with evidence of prior left upper lobectomy. Stable mild scarring in the anterior aspect of the left lower lobe. Hyperinflation of the right lung. There is no demonstrated pleural abnormality. Tiny anterior pericardial effusion. There are calcifications of the coronary arteries. Normal mediastinum. Normal hilar regions. Normal unenhanced pulmonary arteries. Normal aorta arch and descending thoracic aorta. There are multi-level degenerative changes of the thoracic spine. Dextroscoliosis. Stable loss of height of the T7 and T10 vertebrae. There is no demonstrated abnormality of the visualized upper abdomen. CT/Chest WITH Contrast IMPRESSION: Status post left upper lobectomy with mild loss in the left hemithorax. Mild scarring in the left lower lobe. Small anterior pericardial effusion. Electronically Signed: David Brar MD at 14:25 EDT ,
[2022-10-11] MEDS: 0.9% Saline Lock 10 ML Syringe IV (07:10)
[2022-10-11 07:26] LABS: CREATININE FINGERSTICK < 0.9 mg/dL (0.55-1.02); EGFR FINGERSTICK > 60.0000 mL/min (>60)
== END | disposition home or self-care (01) ==
LOC: CT 07:00
PROVIDERS: PCP Internal Medicine; Referring Provider Internal Medicine Hematology & Oncology; Visit Provider Internal Medicine Hematology & Oncology
DX: C79.31 Secondary malignant neoplasm of brain (principal); C34.12 Malignant neoplasm of upper lobe, left bronchus or lung
CPT/HCPCS: 71260; Q9967; A4216

== ENCOUNTER → 2022-11-10 | Outpatient (CLI) | payer MEDICAID, SELFPAY ==
--- NOTE | 2022-11-10 10:00 | MRI_ITS ---
INDICATION: Follow up treated brain metastases -- please compare to prior EXAMINATION: MRI - MR Brain WO/W Contrast TECHNIQUE: Multiplanar and multisequence MR images of the brain were obtained without and with gadolinium. IV Contrast Dosage and Agent: None. COMPARISON: 07/05/2022 head CTA FINDINGS: BRAIN PARENCHYMA: There may be slight residual peripheral enhancement in the anterior right frontal lobe resection cavity. Substantial surrounding FLAIR hyperintensity. 1.1 x 0.8 x 0.9 cm high left frontal lobe enhancing nodule with associated FLAIR hyperintensity. No MRI evidence of hemorrhage. No evidence of acute infarct. There is preservation of the nickerson/white matter interface. Normal sella turcica, pituitary gland, infundibular stalk, optic chiasm and hypothalamus. Posterior fossa structures are unremarkable. INTERNAL AUDITORY CANALS: The internal auditory canals appear normal. CSF SPACES: Appropriate for age. No hydrocephalus. Basal cisterns are patent. VASCULAR SYSTEM: Normal flow voids in the major intracranial circulation. CALVARIUM, SKULL BASE, PARANASAL SINUSES AND MASTOID AIR CELLS: Right mastoid effusion. Right pterional craniotomy. ORBITS: Both globes, extraocular muscles, optic nerves and retrobulbar fat appear unremarkable. MRI/Brain W/WO Contrast IMPRESSION: There is a new 1 cm enhancing nodule in the high left frontal lobe cortex with involvement of the overlying dura, probably metastasis. Minimal residual enhancement in the right frontal lobe resection cavity may be postoperative in nature. Electronically Signed: Víctor Gayle MD at 21:10 EDT ,
[2022-11-10] MEDS: 0.9% Saline Lock 10 ML Syringe IV (11:05)
--- NOTE | 2022-11-10 11:35 | US_ITS ---
ACR Level 3 findings have been noted. An addendum which confirms receipt of the report will follow. STUDY: THYROID ULTRASOUND REASON FOR EXAM: Female, 62 years old. Thyroid hypodensities on chest CT TECHNIQUE: Ultrasound evaluation of the thyroid was performed with real-time and static nickerson-scale imaging. COMPARISON: CT angiogram chest June 01, 2021 FINDINGS: RIGHT LOBE: The right lobe of the thyroid gland measures 5.7 x 2.0 x 1.5 cm. There is a heterogeneous echotexture. There are numerous small nodules throughout the right thyroid. Superior mid there is a 1.5 x 0.8 x 0.6 partially solid nodule with peripheral coarse calcification. There is a mid is 0.7 x 0.7 x 0 point centimeter measured isoechoic nodule. Inferiorly there is a visualized nodule measuring 1.7 x 1.2 x 0.9 cm. This is wider than tall mostly hypoechoic with smooth borders without calcification. LEFT LOBE: The left lobe of the thyroid gland measures 5.8 x 1.8 x 1.4 cm. There is a heterogeneous echotexture. There is spur aspect of the left thyroid there is a complex 1.2 x 0.8 x 0.6 cm thyroid nodule appears to be mostly solid and are isoechoic. There is a mid 0.8 x 0.8 x 0.6 solid-appearing nodule with coarse calcification. In the inferior aspect of the left thyroid there is a mixed echogenicity vascular nodule measuring 1.6 x 1.1 x 1.0 cm with calcifications. ISTHMUS: The isthmus measures 2.5 mm . The regional lymph nodes are normal. US/Thyroid IMPRESSION: Heterogeneous mildly enlarged thyroid with multiple nodules bilaterally. They''re too numerous to count nodules within the bilateral thyroid lobes. The dominant left thyroid nodule falls into a moderately suspicious category which is slightly greater than 1.5 cm. By t rads criteria a fine-needle aspiration would be recommended since this measures approximately 1.7 cm. The largest nodule on the right side measures 1.7 x 0.9 x 1.1 cm in as a lobulated smooth border coarse calcifications and mixed echogenicity following into a moderately suspicious category as well. By T RADS criteria this nodule would also be a candidate for fine-needle aspiration in the appropriate setting. Depending on the findings above recommend follow-up for the remainder of the nodules accordingly. Electronically Signed: Ania Delacruz MD at 16:20 EDT ,
== END | disposition home or self-care (01) ==
LOC: MRI 10:00
PROVIDERS: PCP Internal Medicine; Referring Provider Student in an Organized Health Care Education/Training Program; Visit Provider Student in an Organized Health Care Education/Training Program
DX: C79.31 Secondary malignant neoplasm of brain (principal); E04.1 Nontoxic single thyroid nodule
CPT/HCPCS: 70553; 76536; A9575; A4216

== ENCOUNTER → 2022-12-09 | Outpatient (CLI) | payer MEDICAID, SELFPAY ==
--- NOTE | 2022-12-09 | IMM_PTH ---
PATIENT: ANNA MALIN LOC: [facility] U#:[id number] AGE/SX: 62/F ROOM: RE12/09/[address]: Dr. Nikko Argueta MD : 1960 BED: DIS: 12/09/2022 SPEC #: [id number] RECD: 12/14/22 13:21 STATUS: KELVIN REQ #: [id number] EMILIANO: 12/09/22 00:[address]: Nikko Argueta DEPT: IMMUNOHISTOCHEMISTRY RECD BY: Corazon Banks ENTERED: 12/14/22 13:23 SP TYPE: IMMUNO OTHR DR: Dr. Ailyn Alvarez MD Tissues: C - Thyroid gland, NOS Procedures: Thyroglobulin (add) NAPSIN A (add) CK20 (add) CK7 (add) CK8 (add) KI-67 (add) TTF1 (add) Pankeratin (initial) PHYSICIAN & INSTITUTION [place] [address] SPECIMEN INFORMATION: Tissue Source: C - Left inferior thyroid nodule Clinical Info: Thyroid nodules Specimen Number: [id number] CPT code: 40479, 69228 x7 METHODOLOGY: Deparaffinized sections of prefer/formalin-fixed tissue or PAP/DQ stained slides are incubated with monoclonal/polyclonal antibodies/oligonucleotide probes. Localization is made via biotin free immunoperoxidase method. Appropriate controls are performed and reacted as expected. Results on target cell population are indicated in the following table: RESULTS: ANTIBODY / CLONE RESULT Block C AE1-3 (AE1/AE3/PCK26) positive CK7 (OV-TL12/30) positive CK8 (28gvkwY16) positive CK20 (KS20.8) positive TTF-1 (8G7G3/1) positive Napsin A (Rabbit Polyclonal) positive Thyro (2H11+6E1) negative Ki-67 (30-9) positive, low These tests were developed and their performance characteristics determined by [facility]. They may not have been cleared or approved by the U.S. Food and Drug Administration. The FDA has determined that such clearance or approval is not necessary. The above immunohistochemical/dualISH markers are ordered and reviewed by the Pathologist. INTERPRETATION: C. Left inferior thyroid nodule, fine needle aspiration (cell block): Atypical cells noted, suspicious for malignancy. See comment. MJ:kim 12/15/2022 Comment: Metastatic carcinoma cannot be ruled out. Case has been reviewed in consultation with Dr. Ohara who concurs with the above diagnosis. IDC:AM
--- NOTE | 2022-12-09 | FLU_PTH ---
PATIENT: ANNA MALIN LOC: [facility] U#:[id number] AGE/SX: 62/F ROOM: RE12/09/[address]: Dr. Nikko Argueta MD : 1960 BED: DIS: 12/09/2022 SPEC #: [id number] RECD: 12/09/22 16:39 STATUS: KELVIN XIN #: [id number] EMILIANO: 12/09/22 00:[address]: Nikko Argueta DEPT: CYTOLOGY RECD BY: Torie Thomas ENTERED: 12/12/22 09:30 SP TYPE: Fluid OTHR DR: Dr. Ailyn Alvarez MD Tissues: A - Thyroid gland, NOS B - Thyroid gland, NOS C - Thyroid gland, NOS D - Thyroid gland, NOS Procedures: Special Stain Group II Surgery Specimen Level IV Cytospin Fluid Cytology Other HEADER OPERATION: Fine needle aspiration, bilateral thyroid nodules PRE-OP DIAGNOSIS: Thyroid nodules TISSUE SUBMITTED: A - Right inferior thyroid nodule fluid, B - Right inferior thyroid nodule x4 slides, C??Left inferior thyroid nodule fluid, D - Left inferior thyroid nodule x4 slides DIAGNOSIS CYTOLOGY A. Right inferior thyroid nodule, fine needle aspiration (cytospin and cell block): Nondiagnostic specimen. [place] category I See comment. B. Right inferior thyroid nodule, fine needle aspiration (smears): Atypical cells noted, highly suspicious for malignancy. [place] category V See comment. C. Left inferior thyroid nodule, fine needle aspiration (cytospin and cell block): Atypical cells noted, highly suspicious for malignancy. [place] category V See comment. D. Left inferior thyroid nodule, fine needle aspiration (smears): Nondiagnostic specimen. [place] category I. SJ:kim 12/15/2022 COMMENT A. Follicular cells are not seen. B. Metastatic carcinoma cannot be ruled. C. Immunohistochemistry ([id number]) supports the above diagnosis. Metastatic carcinoma cannot be ruled. D. Follicular cells are not seen. The patient has a history of metastatic lung adenocarcinoma. This case is discussed with Dr. Argueta on 12/15/2022 and right inferior thyroid nodule, FNA fluid and right inferior thyroid nodule, FNA, smears slides do not match in cellularity and left inferior thyroid nodule fluid, FNA and left inferior thyroid nodule, FNA, smears slides do not match in cellularity. Clinical correlation is necessary about the mismatch of smears slides and fluids cellularity in right and left sides FNA. Case has been reviewed in consultation with Dr. Ohara who concurs with the above diagnosis. IDC:AM CYTOLOGY STUDY Slides are reviewed. CYTOLOGY GROSS A - Received is 30 ml of red cloudy fluid labeled with the patient's name and and designated per the requisition as right inferior thyroid nodule. Submitted for cytology preparation including cell block. B - Received are four smears labeled with the patient's name and designated per the requisition as right inferior thyroid nodule. Submitted for staining. C - Received is 20 ml of red cloudy fluid labeled with the patient's name and and designated per the requisition as left inferior thyroid nodule. Submitted for cytology preparation including cell block. D - Received are four smears labeled with the patient's name and designated per the requisition as left inferior thyroid nodule. Submitted for staining. / rg 12/12/2022 TC:0 CPT: 89182 x4, 66177 x2
== END | disposition home or self-care (01) ==
LOC: LABSPEC 16:44
PROVIDERS: PCP Internal Medicine; Referring Provider Surgery; Visit Provider Surgery
DX: E04.1 Nontoxic single thyroid nodule (principal)
CPT/HCPCS: 88108; 88161; 88305; 88313; 88341; 88342

== ENCOUNTER → 2022-12-30 | Outpatient (CLI) | payer MEDICAID, SELFPAY ==
--- NOTE | 2022-12-30 14:20 | CT_ITS ---
INDICATION: F/U LUNG CANCER EXAMINATION: CT CHEST AND ABDOMEN WITH CONTRAST - CT Chest And Abdomen W/ Contrast Injection TECHNIQUE: Helically acquired images were obtained of the chest and abdomen. A radiation dose optimization technique was used for this scan. IV Contrast dosage and agent: 100 mL of Isovue-370. Oral contrast: None. COMPARISON: Prior comparison exam dated October 11, 2022. FINDINGS: Right-sided tunneled chest port with the tip in the region of the cavoatrial junction. Tip is obscured by dense contrast. ----Chest: LUNGS, PLEURA AND LARGE AIRWAYS: Patient is status post partial left upper lobe resection. There is volume loss in the left lung. Mild scarring left lung base is unchanged. Increased volume right lung. There are some mild centrilobular emphysematous changes seen in the lung apices. No pleural effusion or thickening. No pneumothorax. There is no nodule or mass. No pleural effusion. Central airways are normal. THYROID: Subcentimeter thyroid hypodensities. No cervical lymphadenopathy. HEART AND PERICARDIUM: Heart size is normal. No pericardial effusion. VESSELS: Thoracic aorta is not dilated. MEDIASTINUM AND MERVIN: No mediastinal or hilar adenopathy. Esophagus is unremarkable. No hiatal hernia. BONES: T6, T8 and T11 superior endplate compression fractures are unchanged. Subjective appearance of decreased bone mineral density. Significant L2-3 degenerative disc and endplate changes. No lytic or blastic bone lesion. Advanced multilevel degenerative disc disease lumbar spine with lateral curvature, convex left. ----Abdomen (without Pelvis): LIVER: Homogeneous. No focal mass. GALLBLADDER AND BILIARY TREE: No calcified gallstones. No gallbladder distension or wall edema. No intra- or extrahepatic biliary ductal dilation. PANCREAS: No focal cystic or solid mass. SPLEEN: Normal size without focal cystic or solid mass. ADRENAL GLANDS: No nodules. KIDNEYS AND URETERS: Normal renal size and position. No hydronephrosis. Subcentimeter homogenous hypodensity inferior pole left kidney most likely representing cyst but too small to calculate characterize. PERITONEUM: No ascites or free air. No other fluid collection. BOWEL: No evidence of acute appendicitis. No stomach or bowel distension. No focal inflammatory change. LYMPH NODES: No enlarged mesenteric or retroperitoneal lymph nodes. VESSELS: Aorta is non-dilated. Retroaortic left renal vein. ABDOMINAL WALL: Abdominal aortic intimal calcifications without aneurysmal dilation or stenosis. CT/CT Chest AND Abd W/ Contrast IMPRESSION: Partial left upper lobe resection. Unchanged scarring left lung base. Mild emphysematous changes upper lobes. No evidence of recurrent or metastatic disease. T6, T8 and T11 superior endplate compression fractures. Advanced degenerative disc and endplate changes lumbar spine. Electronically Signed: Nikko Pierce DO at 22:48 EDT ,
[2022-12-30] MEDS: 0.9 % NaCl (Sterile) Posiflush 10 mL IV (14:40)
--- NOTE | 2022-12-30 14:47 | CT_ITS ---
INDICATION: History of lung cancer metastatic to brain, multiple thyroid nodules EXAMINATION: CT NECK WITH CONTRAST - CT Soft Tissue Neck W/ Contrast Injection TECHNIQUE: Helically acquired images were obtained of the neck following IV contrast. A radiation dose optimization technique was used for this scan. IV Contrast dosage and agent: 100 cc Isovue-370 RADIATION DOSAGE (If Supplied By Facility): CTDIvol = ( 10.26 ) mGy, DLP = ( 866.86 ) mGycm COMPARISON: Prior studies dated: Thyroid ultrasound 11/10/2022, chest CT for 2522 FINDINGS: NASOPHARYNX: Unremarkable. SUPRAHYOID NECK: Unremarkable oropharynx, oral cavity, parapharyngeal space, and retropharyngeal space. INFRAHYOID NECK: Unremarkable larynx, hypopharynx, and supraglottis. THYROID: Multiple subcentimeter nodules in both lobes. Findings better seen on prior thyroid ultrasound. SALIVARY GLANDS: Unremarkable. LYMPH NODES: No cervical or supraclavicular lymphadenopathy. VASCULAR STRUCTURES: Unremarkable. VISUALIZED PORTIONS OF THE ORBITS, PARANASAL SINUSES, MASTOID AIR CELLS AND SKULL BASE: Unremarkable. BONES: Mild degenerative changes. THORACIC INLET: Clear lung apices. CT/Soft Tissue Neck WITH Contrast IMPRESSION: No acute findings in the neck. Multinodular goiter better evaluated on prior thyroid ultrasound. Electronically Signed: Yosvany Henry MD at 23:30 EDT ,
[2022-12-30] MEDS: 0.9% Saline Lock 10 ML Syringe IV (14:58)
[2022-12-30 15:04] LABS: CREATININE FINGERSTICK 0.9 mg/dL (0.55-1.02); EGFR FINGERSTICK > 60.0000 mL/min (>60)
== END | disposition home or self-care (01) ==
PROVIDERS: PCP Internal Medicine; Referring Provider Internal Medicine Hematology & Oncology; Visit Provider Internal Medicine Hematology & Oncology
DX: E04.2 Nontoxic multinodular goiter (principal); C34.12 Malignant neoplasm of upper lobe, left bronchus or lung
CPT/HCPCS: 70491; 71260; 74160; Q9967

== ENCOUNTER → 2023-01-12 | Outpatient (CLI) | payer MEDICAID, SELFPAY ==
--- NOTE | 2023-01-12 | ASPIGT_PTH ---
PATIENT: ANNA MALIN LOC: [facility]#:[id number] AGE/SX: 62/F ROOM: RE01/12/[address]: Dr. Nikko Argueta MD : 1960 BED: DIS: 01/12/2023 SPEC #: [id number] RECD: 01/12/23 16:08 STATUS: KELVIN XIN #: [id number] EMILIANO: 01/12/23 00:[address]: Nikko Argueta DEPT: SURGICAL PATHOLOGY RECD BY: Yefri Durbin ENTERED: 01/12/23 16:09 SP TYPE: ASP RAD OTHR DR: Dr. Ailyn Alvarez MD Tissues: Thyroid gland, NOS Procedures: FNA Specimen Adequacy Special Stain Group II Surgery Specimen Level IV Imprint (control) HEADER OPERATION: Ultrasound-guided fine needle aspiration/biopsy bilateral thyroid PRE-OP DIAGNOSIS: Right inferior thyroid nodule TISSUE SUBMITTED: Right inferior thyroid nodule MICROSCOPIC DIAGNOSIS Right inferior thyroid nodule, ultrasound-guided core biopsy: A fragment of fibroadipose tissue and adjacent benign thyroid tissue. See comment. MJ:kim 01/13/2023 COMMENT The specimen is evaluated at the time of biopsy by Dr. Rodgers. Immediate Evaluation = Small amount of colloid is noted. The specimen predominantly consists of fibroadipose tissue. Please also correlate with corresponding cytology [id number]. Case has been reviewed in consultation with Dr. Ohara who concurs with the above diagnosis. IDC:AM MICROSCOPIC DESCRIPTION Slides are reviewed. GROSS DESCRIPTION Received in fixative is one container labeled with the patient's name and designated right inferior thyroid nodule. The specimen consists of an elongated fragment of hahn-pink soft tissue measuring 2.0 cm in length and 0.1 cm in diameter. One touch imprint is prepared. The entire specimen is submitted in one cassette. / MJ:kim 01/12/2023 TC:5 CPT: 01837, 37851
--- NOTE | 2023-01-12 | IMM_PTH ---
PATIENT: ANNA MALIN LOC: [facility]#:[id number] AGE/SX: 62/F ROOM: RE01/12/[address]: Dr. Nikko Argueta MD : 1960 BED: DIS: 01/12/2023 SPEC #: [id number] RECD: 01/13/23 13:39 STATUS: KELVIN REShanel #: [id number] EMILIANO: 01/12/23 00:[address]: Nikko Argueta DEPT: IMMUNOHISTOCHEMISTRY RECD BY: Corazon Banks ENTERED: 01/13/23 13:40 SP TYPE: IMMUNO OTHR DR: Dr. Ailyn Alvarez MD Tissues: B - Thyroid gland, NOS Procedures: Thyroglobulin (add) CK8 (initial) NAPSIN A (add) TTF1 (add) PHYSICIAN & INSTITUTION [place] [address] SPECIMEN INFORMATION: Tissue Source: B - Left inferior thyroid Clinical Info: Nodule Specimen Number: [id number] CPT code: 54718, 64907 x4 METHODOLOGY: Deparaffinized sections of prefer/formalin-fixed tissue or PAP/DQ stained slides are incubated with monoclonal/polyclonal antibodies/oligonucleotide probes. Localization is made via biotin free immunoperoxidase method. Appropriate controls are performed and reacted as expected. Results on target cell population are indicated in the following table: RESULTS: ANTIBODY / CLONE RESULT Block B Cell block CK8 ([id number]) postive, rare cells TTF-1 (8G7G3/1) positive Napsin A (Rabbit Polyclonal) positive Thyro (2H11+6E1) negative Smear Thyro (2H11+6E1) negative These tests were developed and their performance characteristics determined by [facility]. They may not have been cleared or approved by the U.S. Food and Drug Administration. The FDA has determined that such clearance or approval is not necessary. The above immunohistochemical/dualISH markers are ordered and reviewed by the Pathologist. INTERPRETATION: B. Left inferior thyroid, fine needle aspiration: Suspicious for follicular neoplasm. SJ:kim 01/16/2023 Case has been reviewed in consultation with Dr. Ohara who concurs with the above diagnosis. IDC:PARVIZ
--- NOTE | 2023-01-12 | ASPIG_PTH ---
PATIENT: ANNA MALIN LOC: [facility]#:[id number] AGE/SX: 62/F ROOM: RE01/12/[address]: Dr. Nikko Argueta MD : 1960 BED: DIS: 01/12/2023 SPEC #: [id number] RECD: 01/12/23 16:09 STATUS: KELVIN XIN #: [id number] EMILIANO: 01/12/23 00:[address]: Nikko Argueta DEPT: CYTOLOGY RECD BY: Yefri Durbin ENTERED: 01/12/23 16:10 SP TYPE: ASP OUT OTHR DR: Dr. Ailyn Alvarez MD Tissues: A - Thyroid gland, NOS B - Thyroid gland, NOS Procedures: FNA Specimen Adequacy Special Stain Group II Surgery Specimen Level IV Cytology Other HEADER OPERATION: Ultrasound-guided fine needle aspiration/biopsy bilateral thyroid PRE-OP DIAGNOSIS: Nodule TISSUE SUBMITTED: A - Right side inferior thyroid, B - Left side inferior thyroid DIAGNOSIS CYTOLOGY A. Right inferior thyroid nodule, ultrasound-guided fine needle aspiration (smears and cell block): Consistent with benign follicular/colloid nodule ([place] Category II). Adequate for evaluation. See comment. B. 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 Adequate for evaluation. See comment. SJ:rg 01/13/2023 COMMENT The specimen is evaluated at the time of FNA by Dr. Rodgers. Immediate Evaluation: A. Set 1 - Bloody specimen. Set 2 - Follicular cells present. Adequate for evaluation. B. Atypical follicular cells noted. B. Immunohistochemistry ([id number]) supports the above diagnosis. Per recommendations and a clinician-approved plan (a call was made to the referring doctor about the recommendation), genomic testing (Afirma) has been submitted. Results will be reported as an addendum and faxed to clinician. Please make reference to previous cytology specimen ([id number]). This case is discussed with Dr. Argueta on 01/16/23. Case has been reviewed in consultation with Dr. Ohara who concurs with the above diagnosis. IDC:AM CYTOLOGY STUDY Slides are reviewed. CYTOLOGY GROSS A - Received is 1.0 ml of bloody fluid in two passes labeled with the patient's name, and designated right side inferior thyroid. 2 imprints and 1 paps are made from the submitted fluid from first pass and 3 imprints and 2 pap are made from second pass and the rest is added to CytoLyt for cell block preparation. Submitted for cytology study. B - Received is 1.0 ml of bloody fluid labeled with the patient's name, and designated right side inferior thyroid. Four imprints and two paps are made from the submitted fluid and the rest is added to CytoLyt for cell block preparation. Submitted for cytology study. / SJ:rg 01/12/2023 TC: 5 CPT: 59836 x2, 35804 x2, 25174 x3 ADDENDUM ADDENDUM ADDENDUM ADDENDUM ADDENDUM ADDENDUM ADDENDUM 02/07/2023 09:08 ADDENDUM 02/07/2023 09:08 ADDENDUM 02/07/2023 09:08 ADDENDUM 02/07/2023 09:08 ADDENDUM 02/07/2023 09:08 AFIRMA RESULTS REPORT RESULTS INTERPRETATION: The result of this 1.6 cm [place] IV nodule B is Afirma GSC suspicious, which suggests a risk of cancer of approximately 50%. Please see complete report in e-chart or EMR
--- NOTE | 2023-01-12 14:05 | US_ITS ---
PROCEDURE: Ultrasound-guided right thyroid biopsy. DATE OF EXAMINATION: January 12, 2023. INDICATION: Female, 62 years old. Thyroid nodules. Under direct sonographic guidance, the surgeon performed core biopsies and fine needle aspiration of the 1.3 cm x 1.1 signed by 1 cm nodule in the right lobe. IMPRESSION: Ultrasound-guided right thyroid biopsy. Electronically Signed: David Brar MD at 8:21 EDT , PROCEDURE: Ultrasound-guided biopsy of the left lobe of the thyroid gland. DATE OF EXAMINATION: January 12, 2023 INDICATION: Female, 62 years old. Thyroid nodules. Under direct sonographic guidance, the surgeon performed fine-needle aspiration of the 1.6 cm x 1 cm x 1.1 cm nodule in the left lobe of the thyroid. US/FNA 1st Biopsy w/ US IMPRESSION: Ultrasound-guided biopsy of the left thyroid nodule. Electronically Signed: David Brar MD at 8:22 EDT ,
[2023-01-12] MEDS: Lidocaine 2% (20 ml mdv) 20 ML Vial INFILT (15:00)
--- NOTE | 2023-01-12 17:38 | PRO.PCM_ITS ---
Procedure Report Date of Procedure: 01/12/23 Procedure: Fine-needle aspiration of right and left inferior pole thyroid nodules under ultrasound guidance. Core needle biopsy of right inferior pole thyroid nodule under ultrasound guidance. Indication: Bilateral suspicious inferior pole thyroid nodules with history of metastatic lung cancer After obtaining patient consent and conducting a timeout amongst those present, the procedure was commenced by locating the suspicious nodules in the inferior poles of the right and left thyroid lobes using ultrasound. Superficially, the skin was cleaned with an alcohol swab and a wheal of local anesthetic was created after instilling 5 ml 2% lidocaine. Then, under ultrasound guidance, multiple passes were made into the right inferior pole thyroid nodule using a 22-gauge needle. Once an adequate specimen was detected within the hub of the needle and bottom of the syringe, this was handed off the field to pathology who is on standby for the procedure. They reported that the specimen consisted primarily of blood and recommended a second specimen be obtained. A second pass was made in a similar manner, again, using a 22-gauge needle. This specimen, also, was passed off the field for cytopathologic evaluation. This time pathology identified follicular cells, but stated that they were rare in number and appeared benign. Given the prior cytopathologic evaluation from patient's initial biopsy and the seeming discordance with that result, we jointly decided that it would be best to obtain more tissue through a core needle procedure. Before undertaking this procedure, I measured the distance between the carotid artery and the central portion of the patient's nodule. I did this to ensure that there was an adequate clearance to this critical vessel from the tip of our biopsy device. After obtaining reassuring measurements the patient's anterior neck was nicked with a #11 blade scalpel and a 14-gauge core needle device was inserted under ultrasound guidance. External pressure was applied and the device was carefully and gradually advanced into the thyroid nodule taking a trajectory just posterior to the common carotid artery on the right. Once the aperture was fully within the area of the nodule the needle device was fired and our core was obtained. The device was withdrawn from the neck and external pressure was applied to assist with hemostasis. Core was passed off to pathology who confirmed adequacy for processing. After several additional minutes of external pressure the neck was examined?including under ultrasound with color Doppler?and found to demonstrate hemostasis. With this result we transitioned to the left neck and once again identified the left inferior pole nodule. A 22-gauge needle was used to obtain an aspirate under ultrasound guidance. The specimen was passed off the field to pathology who confirmed that there was much more cellularity to this specimen. A brief discussion was held around potentially obtaining a core needle of this site as well, however, I declined this approach on the account of the increased proximity to the carotid artery and the presence of a posteriorly coursing vessel and the patient's esophagus. With this limitation recognized, we settled to simply perform a second fine-needle aspiration. After adequate specimen was obtained and the needle hub the specimen was handed off to pathology and external pressure was applied to the neck to assist with hemostasis. A quick examination was made wi th ultrasound to exclude any evidence of hematoma formation. Then the surface of the neck was cleaned, dried, and a bandage was applied. Patient was gradually returned to the sitting position and after short period of monitoring was dismissed. Wound care instructions and expectations regarding pathologic processing were discussed prior to dismissal. Complications: None Estimated blood loss: Less than 5 ml
== END | disposition home or self-care (01) ==
PROVIDERS: PCP Internal Medicine; Referring Provider Surgery; Visit Provider Surgery
DX: E04.1 Nontoxic single thyroid nodule (principal)
CPT/HCPCS: 10005; 10006; 88161; 88172; 88305; 88313; 88341; 88342

== ENCOUNTER → 2023-01-30 | Outpatient (CLI) | payer MEDICAID, SELFPAY ==
--- NOTE | 2023-01-30 15:20 | MRI_ITS ---
INDICATION: ASSESS TREATMENT RESPONSE-BRAIN METS EXAMINATION: MRI - MR Brain WO/W Contrast TECHNIQUE: Multiplanar and multisequence MR images of the brain were obtained without and with gadolinium. IV Contrast Dosage and Agent: None. COMPARISON: 11/10/2022 FINDINGS: BRAIN PARENCHYMA: There is a new enhancing lesion in the postcentral gyrus in the left parietal lobe measures 5 mm in diameter is consistent with a metastatic lesion. There is marked decrease in size of previously described metastatic lesion in the high left frontal lobe cortex previously measured 10 mm now measures 3 mm. Stable right frontal lobe resection cavity containing CSF fluid consistent with postsurgical changes. No MRI evidence of hemorrhage. No evidence of acute infarct. Normal sella turcica, pituitary gland, infundibular stalk, optic chiasm and hypothalamus. Posterior fossa structures are unremarkable. INTERNAL AUDITORY CANALS: The internal auditory canals are well visualized and patent. No mass identified. CSF SPACES: Appropriate for age. No hydrocephalus. Basal cisterns are patent. VASCULAR SYSTEM: Normal flow voids in the major intracranial circulation. CALVARIUM, SKULL BASE, PARANASAL SINUSES AND MASTOID AIR CELLS: Clear. No expansile changes. There is chronic right mastoid effusion unchanged since the previous study. ORBITS: Both globes, extraocular muscles, optic nerves and retrobulbar fat appear unremarkable. MRI/Brain W/WO Contrast IMPRESSION: There is a new enhancing lesion in the postcentral gyrus in the left parietal lobe measures 5 mm in diameter is consistent with a metastatic lesion. There is marked decrease in size of previously described metastatic lesion in the high left frontal lobe cortex previously measured 10 mm now measures 3 mm. Stable right frontal lobe resection cavity containing CSF fluid consistent with postsurgical changes. Electronically Signed: Micaela Gleason MD at 0:20 EDT ,
[2023-01-30] MEDS: 0.9 % NaCl (Sterile) Posiflush 10 mL IV (16:10)
== END | disposition home or self-care (01) ==
LOC: MRI 15:18
PROVIDERS: PCP Internal Medicine; Referring Provider Internal Medicine Hematology & Oncology; Visit Provider Internal Medicine Hematology & Oncology
DX: C34.12 Malignant neoplasm of upper lobe, left bronchus or lung (principal); C79.31 Secondary malignant neoplasm of brain
CPT/HCPCS: 70553; A9575; A4216

== ENCOUNTER → 2023-02-24 | Outpatient (CLI) | payer MEDICAID, SELFPAY ==
--- NOTE | 2023-02-24 12:14 | US_ITS ---
STUDY: SUPERFICIAL ULTRASOUND - LEFT CERVICAL SWELLING. REASON FOR EXAM: Female, 62 years old. Left side of neck swelling TECHNIQUE: A superficial ultrasound was performed with real-time and static nickerson-scale imaging. COMPARISON: None. FINDINGS: Medial lower aspect of the neck, there is a 1.2 cm x 0.6 cm x 0.4 cm hypoechoic nodule most likely suggestive of a lymph node. US/Head/Neck Soft Tissue IMPRESSION: Findings suggestive of a 1.2 cm x 0.6 cm x 0.4 cm lymph node in the left cervical region. Electronically Signed: David Brar MD at 14:36 EDT ,
== END | disposition home or self-care (01) ==
LOC: US 12:11
PROVIDERS: PCP Internal Medicine; Referring Provider Surgery; Visit Provider Surgery
DX: R22.1 Localized swelling, mass and lump, neck (principal)
CPT/HCPCS: 76536

== ENCOUNTER 2023-03-01 11:12 | Outpatient (CLI) | payer MEDICAID, SELFPAY ==
[2023-03-01 11:49] LABS: Hematocrit 44.1 % (37-47); Hemoglobin 14.9 g/dL (12.0-15.0); Mean Corp Hgb Conc 33.8 g/dL (32-36); Mean Corpuscular Hgb 32.5 pg (27.0-32.0); Mean Corpuscular Volume 96.3 fL (81-99); Mean Platelet Vol. 10.1 fl (6.2-12.0); Platelet Count 203 K/mm3 (150-450); RBC Distribution Width CV 12.6 % (11.6-14.6); RBC Distribution Width SD 44.8 fl (35.1-43.9); Red Blood Count 4.58 M/mm3 (4.2-5.4); White Blood Count 5.9 K/mm3 (4.4-11.0)
[2023-03-01 11:54] LABS: Prothrombin Time (Protime)PT. 13.5 SECONDS (11.7-14.9)
[2023-03-01 11:56] LABS: Partial Thromboplast Time 74.3 Seconds (24.1-36.2)
[2023-03-01 12:51] LABS: AST(SGOT) 17 U/L (15-37); Alanine Aminotransfer ALT/SGPT 18 U/L (13-56); Albumin, Serum 3.6 g/dL (3.2-5.0); Alkaline Phosphatase 109 U/L (45-117); Bilirubin, Direct 0.18 mg/dL (0.00-0.30); Globulin 3.1 g/dL (2.2-4.2); Protein, Total 6.7 g/dL (6.4-8.2)
== END 2023-03-01 11:13 | disposition home or self-care (01) ==
LOC: MEDOUTP 11:13
PROVIDERS: Anesthesiology; PCP Internal Medicine; Referring Provider Surgery; Visit Provider Surgery
DX: Z01.818 Encounter for other preprocedural examination (principal)
CPT/HCPCS: 36591; 80076; 85027; 85610; 85730; A4216

== ENCOUNTER 2023-03-08 05:39 | Day surgery (SDC) | payer MEDICAID, SELFPAY ==
[2023-03-08] VITALS (7 sets, daily range): BP systolic 148–157; BP diastolic 77–91; PULSE 60–98; RESP 16–20; TEMP 36.1–37.1; O2SAT 93–100; BMI 24.3
--- NOTE | 2023-03-08 | IMM_PTH ---
PATIENT: ANNA MALIN LOC: [facility] [place] U#:[id number] AGE/SX: 62/F ROOM: RE03/08/[address]: Dr. Nikko Argueta MD : 1960 BED: DIS: 03/08/2023 SPEC #: [id number] RECD: 03/10/23 14:13 STATUS: KELVIN REQ #: [id number] EMILIANO: 03/08/23 00:[address]: Nikko Argueta DEPT: IMMUNOHISTOCHEMISTRY RECD BY: Corazon Banks ENTERED: 03/10/23 14:14 SP TYPE: IMMUNO OTHR DR: Dr. Ailyn Alvarez MD Tissues: Thyroid gland, NOS Procedures: CD31 (add) CD56 (add) CK19 (add) GAL-3 (add) HBME (add) P53 (add) FACTOR VIII (add) KI-67 (initial) PHYSICIAN & INSTITUTION [place] [id number] SPECIMEN INFORMATION: Tissue Source: Left thyroid and isthmus Clinical Info: Multiple thyroid nodules Specimen Number: [id number] #2 CPT code: 36912, 93693 x7 METHODOLOGY: Deparaffinized sections of prefer/formalin-fixed tissue or PAP/DQ stained slides are incubated with monoclonal/polyclonal antibodies/oligonucleotide probes. Localization is made via biotin free immunoperoxidase method. Appropriate controls are performed and reacted as expected. Results on target cell population are indicated in the following table: RESULTS: ANTIBODY / CLONE RESULT Block 2 CD31 (JOSE MANUEL/70A) negative Factor VIII (R Ag) negative HBME1 (HBME-1) positive, rare CK19 (A53-B/A2.26) positive GAL3 (9C4) positive CD56 (123C3.D5) negative P53 (DO-7) negative Ki-67 (30-9) positive, 5% These tests were developed and their performance characteristics determined by [facility]. They may not have been cleared or approved by the U.S. Food and Drug Administration. The FDA has determined that such clearance or approval is not necessary. The above immunohistochemical/dualISH markers are ordered and reviewed by the Pathologist. 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 AM:kim 03/21/2023 Case has been reviewed in consultation with Dr. Rodgers who concurs with the above diagnosis. IDC:MJ
[2023-03-08] MEDS: Lactated Ringers 1,000 ML 15 ML IV (06:37)
--- NOTE | 2023-03-08 07:30 | THYROID_PTH ---
PATIENT: ANNA MALIN LOC: [facility] [place] U#:[id number] AGE/SX: 62/F ROOM: RE03/08/[address]: Dr. Nikko Argueta MD : 1960 BED: DIS: 03/08/2023 SPEC #: [id number] RECD: 03/08/23 12:25 STATUS: KELVIN XIN #: [id number] EMILIANO: 03/08/23 07:[address]: Nikko Argueta DEPT: SURGICAL PATHOLOGY RECD BY: Jolene Myles ENTERED: 03/09/23 08:01 SP TYPE: THYROID OTHR DR: Dr. Ailyn Alvarez MD Tissues: Thyroid gland, NOS Procedures: Surgery Specimen Level V HEADER OPERATION: Left thyroidectomy and isthmus with IONM PRE-OP DIAGNOSIS: Multiple thyroid nodules TISSUE SUBMITTED: Left thyroid and isthmus, tag superior pole MICROSCOPIC DIAGNOSIS Left thyroid and isthmus, resection: Papillary thyroid carcinoma. See synoptic report below. AM:kim 03/21/2023 COMMENT THYROID CANCER SUMMARY Procedure: Left lobe and isthmus, lobectomy and isthmectomy Tumor Focality: Unifocal. Tumor Site: Left lobe. Tumor Size: 1.0 x1.0 x 0.6 cms Histologic Type: Papillary thyroid carcinoma, moderately differentiated. Margins: Free of tumor Angioinvasion: Focally present Lymphatic Invasion: Focally suspected Extrathyroidal Extension: Not identified Regional Lymph Nodes: No lymph nodes found Ancillary Studies: See IHC [id number] Additional Pathologic Findings: Benign parathyroid tissue (4.0mm), chronic lymphocytic thyroiditis. colloid nodules with focal adenomatous change. Clinical History: Mass of left thyroid lobe PATHOLOGIC STAGE: T1a Nx Mx The above summary is in compliance with [employer] [place] [employer] (CAP) Cancer Protocols Checklist and [place] Joint Committee on Cancer (AJCC), Staging Manual, 8th Ed. Immunohistochemistry ([id number]) supports the above diagnosis. The case is reviewed by Dr. Schaffer of [employer] who also conducted a peer review and concurs with the diagnosis. The complete report is in EMR. A previous FNA of the left lobe ([id number]) was suspicious for a follicular neoplasm. Case has been reviewed in consultation with Dr. Rodgers who concurs with the above diagnosis. IDC:SJ MICROSCOPIC DESCRIPTION Slides are reviewed. GROSS DESCRIPTION Received in fixative is one container labeled with the patient's name and designated left thyroid and isthmus. The specimen consists of a lobe of thyroid with isthmus weighing 13 gm. The lobe measures 5.8 x 2.5 x 2.0 cm. The isthmus measures approximately 2.0 x 1.5 x 0.8 cm. The specimen is differentially inked as follows: anterior left lobe - blue, anterior isthmus - red, entire posterior surface of left lobe and isthmus - black. Serial sections of the isthmus does not reveal mass lesions. Serial sections of the right lobe reveals a hahn-white lesion measuring 1.5 x 1.2 cm present in the superior portion of the gland. The remainder of the lobe is hahn-red and free of additional mass lesions. The specimen is serially sectioned and totally submitted as follows: 1 - isthmus, 2 - left lobe mass, 3-9 - remainder of specimen. / AM:kim 03/09/2023 TC:0 [facility]: [id number]
--- NOTE | 2023-03-08 08:02 | PCM.HP.BLA ---
History and Physical Date of Admission: 03/08/23 Date of Service: 02/21/23 MR#: [id number] Acct: [id number] Name: ANNA MALIN Rep #: [id number] : 1960 Provider: Dr. Nikko Argueta MD Age/Sex: 62/F Location: [facility] [address] Status: Signed Intake Vital Signs 02/02/2313:04 02/22/2308:23 Height 5 ft 4 in Weight: 141 lb 3 oz BMI 24.2 BP 145/85 H 137/90 H Blood Pressure Location Rt brachial Lt brachial Position Sitting Sitting Respiration 16 17 Pulse 69 72 Pulse Source Monitor Monitor Temp 97.9 F 97.4 F L Temp Source Temporal Pulse Oximetry (%) 100 96 Oxygen Delivery Method room air room air Intake Visit Reasons: Discuss L Thyroid Lobectomy Chief Complaint: discuss left thyroid lobectomy Is patient in pain?: No Allergies meperidine [From Demerol] Allergy (Severe, Verified 02/21/23 08:24) Itching Medications albuterol sulfate 90 mcg/actuation aerosol inhaler (Ventolin HFA) 2 puff inhalation Q4H PRN shortness of breath or wheezing #18 grams 12/13/21 [Rx Confirmed 02/21/23] Spiriva Respimat 2.5 mcg/actuation solution for inhalation (tiotropium bromide) 2 puff inhalation DAILY #4 grams 08/25/22 [Rx Confirmed 02/21/23] budesonide-formoterol HFA 160 mcg-4.5 mcg/actuation aerosol inhaler (Symbicort) 2 puff inhalation BID COPD #10.2 grams 08/25/22 [Rx Confirmed 02/21/23] ascorbate calcium (vitamin C) 500 mg tablet 500 mg PO DAILY 11/03/22 [History Confirmed 02/21/23] biotin 10,000 mcg capsule mcg PO 11/03/22 [History Confirmed 02/21/23] cholecalciferol (vitamin D3) 50 mcg (2,000 unit) capsule 50 mcg PO DAILY 11/03/22 [History Confirmed 02/21/23] glucosamine sulfate 500 mg tablet (Glucosamine) 500 mg PO DAILY 11/03/22 [History Confirmed 02/21/23] ibandronate 150 mg tablet 150 mg PO QMONTH #12 tabs 11/03/22 [Rx Confirmed 02/21/23] krill oil 500 mg capsule mg PO 11/03/22 [History Confirmed 02/21/23] mecobalamin (vitamin B12) 1,000 mcg lozenges 1,000 mcg PO DAILY 11/03/22 [History Confirmed 02/21/23] oxycodone 5 mg tablet 5 mg PO DAILY PRN pain 7 days #7 tabs 11/03/22 [Rx Confirmed 02/21/23] psyllium husk 0.4 gram capsule (Fiber (psyllium husk)) 0.4 g PO BID 11/03/22 [History Confirmed 02/21/23] vitamin A acetate 3,000 mcg (10,000 unit) sublingual tablet 100 mcg PO DAILY 11/03/22 [History Confirmed 02/21/23] zinc gluconate 50 mg tablet 50 mg PO DAILY 11/03/22 [History Confirmed 02/21/23] duloxetine 60 mg capsule,delayed release (Cymbalta) 60 mg PO DAILY anxiety depression #90 caps 01/24/23 [Rx Confirmed 02/21/23] rosuvastatin 10 mg tablet 10 mg PO QHS cholesterol #90 tabs 01/24/23 [Rx Confirmed 02/21/23] tizanidine 4 mg capsule 4 mg PO TID PRN MUSCLE RELAXER #30 caps 02/01/23 [Rx Confirmed 02/21/23] gabapentin 100 mg capsule 100 mg PO BID #60 caps 02/22/23 [Rx] PFSH Medical History Anxiety Asthma Brain metastasis Brain tumor Cancer of upper lobe of left lung Chronic neck and back pain CINV (chemotherapy-induced nausea and vomiting) Colon polyps Constipation COPD (chronic obstructive pulmonary disease) Easy bruising Exertional dyspnea History of diverticulitis History of edema Hx of fracture of wrist Hyperlipidemia Injury of head and neck Insomnia Left low back pain Leg cramps Oral candidiasis Osteoporosis Port-A-Cath in place Post-menopausal Primary adenocarcinoma of left lung Restless legs Smoker Stage 2 moderate COPD by GOLD classification Thyroid nodule Vertigo Wears dentures Wears glasses Surgical History History of brain surgery History of colonoscopy History of hysterectomy History of lobectomy of lung History of surgery on arm History of thyroid surgery Hx of craniotomy Family History Mother Lung cancerFather DiabetesBrother Hypertension Diabetes Social History household members: spouse current occupational status: unemployed 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 She underwent FNA biopsy 12/09 and 01/12 with suspicious GSC result for her left thyroid nodule. She presents today with her to discuss further management. Outside of this issue, Mrs. Colvin communicates that she just recently underwent treatment for a new brain lesion. She states that the headaches that she had been experiencing are somewhat better, but that she also ultimately believes that these are partly due to an outdated vision prescription. Later in the visit, patient and her remark of some new swelling of the left neck that seems to have started shortly after her second biopsy. Below is recapitulated from patient's prior visit for ease of review: She presents today with her . They are referred for surgical consultation from Drs. Brewer and Antonio. This was discovered with CT angiogram of the chest dated June 01, 2021 and followed up with ultrasound on 11/10/2022. Mrs. Malin relates a very colorful history, medically?speaking since June of this year when she started with what she thought was a sinus headache but was followed shortly thereafter with a number of neurologic changes and was ultimately diagnosed as a brain tumor representing metastasis from her lung primary. She underwent urgent brain surgery at [facility] and did well until October when she was discovered to have a smaller mass that required radiation treatment. They do not experience difficulty with swallowing. They do not complain of a new cough, but remark of a chronic cough (patient admits to still smoking despite her experience with the above diagnoses). They also confirm no new voice changes, but have experienced intermittent hoarseness over the years. They do have a history of snoring. Additionally, their weight has been stable since brain surgery and they do not have a history of weight gain/loss. There is a history of recent fatigue which they state have not been well explained since they feel like they are sleeping well and have no troubles getting to sleep. They do have a history of cold intolerance. Other symptoms include: Some recent dry skin and lower extremity swelling, however, they believe this is started since chemotherapy. They do not have a family history of thyroid disorders or endocrinopathies. There is a history of prior radiation exposure as per treatment for her lung cancer and brain metastases. Previous work-up, as above, has included thyroid ultrasound. This demonstrated a right thyroid lobe measuring 5.7 x 2.0 x 1.5 cm. Radiology notes that there are many nodules too numerous to count, but specifically identified a superior mid nodule measuring 1.5 x 0.8 x 0.6 cm, a mid 0.7 cm isoechoic nodule, and an inferior 1.7 x 1.2 x 0.9 cm wider than tall, mostly hypoechoic, mostly solid nodule. The left thyroid lobe measured 5.8 x 1.8 x 1.4 cm. In the superior aspect radiology identified a 1.8 x 0.8 x 0.6 cm nodule that was felt to be mostly solid and isoechoic. Again, in the inferior pole radiology identified a 1.6 x 1.1 x 1.0 cm nodule containing calcifications. Ultimately radiology concluded that both the patient's dominant, inferiorly located bilateral thyroid nodules met criteria by TI-RADS criteria for FNA biopsy as they are both designated moderately suspicious. An FNA has not been performed based on this ultrasound, however, later in the visit patient's remarks that she underwent this procedure in 2007 or 2008 but they do not recall the results and they have not been able to obtain a copy. ROS General General: Yes fatigue; No weight change, appetite, colon cancer, breast cancer or weakness HEENT HEENT: No difficulty swallowing, eye injury, eye surgery, swollen glands or hoarseness Endo Endocrine: Yes thyroid disease; No diabetes mellitus, thyroid cancer, Hair loss, heat intolerance or cold intolerance Skin Skin: Yes rash; No changing moles Musc Musculoskeletal: Yes back problems and arthritis; No rheumatoid arthritis, gout or joint pain Cardio Cardiovascular: No murmur, pacemaker, heart disease, atrial fibrillation, high blood pressure, heart attack, heart stent, palpitations, shortness of breat with exertion or chest pain Psych Psychiatric: Yes anxiety; No depression or hearing voices Resp Respiratory: Yes shortness of breath, No sleep apnea, Yes cough, Yes COPD, Yes asthma, No emphysema and No wheezing Gastro Gastrointestinal: Yes abdominal pain, No nausea or vomiting, No diarrhea, No constipation, No blood in stool, No acid reflux, Yes hemorrhoids, No ulcers, No gallbladder problem and No black,tarry stools Gigi Hematologic: No blood thinners, No blood disorders, No bleeding, No anemia and No blood clots Neuro Neurologic: No system reviewed and no additional complaints, except as documented, No as per HPI, No abnormal gait, No abnormal hearing, No abnormal movements, No abnormal speech, No behavioral changes, No burning sensations, No confusion, No convulsions, No disequilibrium, No dizziness, No localized weakness, No frequent falls, No headache(s), No lack of coordination, No loss of vision, No memory loss, Yes numbness, No other visual disturbances, No radicular pain, No restless legs, No sensory deficit, No syncope, Yes tingling, No tremor(s), No weakness and No other Exam Const General: cooperative, comfortable and no acute distress Neck Neck: normal visual inspection Other: Patient with slight left sided swelling that is nontender with palpation and appears to reside lateral to the left thyroid lobe. Assessment and Plan Assessment and Plan (1) Multiple thyroid nodules: Status: Chronic Comment: FNA November 2022 suspicious for malignancy of both right an left thyroid nodules. Repeat biopsy undertaken 01/12/23- core need of the right nodule returned bethesda II, but repeat FNA of left thyroid nodule returned bethesda IV. GSC testing of this nodule was suspicious with KRAS mutation identified. Lengthy conversation with patient and her today to discuss thyroid lobectomy vs total thyroidectomy and attendant risk of RLN injury and hypoparathyroidism. Patient admits that she had planned to opt for total thyroidectomy but I have tried to have her consider the lesser operation in favor of decreased periop risks. She states that she sees the merit in this approach after better understanding the risks and agrees with the recommendation as given. Plan: Left thyroid lobectomy with isthmusectomy and intraoperative nerve monitoring. To be completed with expectation for outpatient disposition. (2) Localized swelling, mass or lump of neck: Status: Acute Comment: Patient with new left sided neck swelling that is difficult to characterize with bedside ultrasound. It appears spherical and hypoechoic on ultrasound but I cannot clearly tell its relationship to the surround vasculature. It is probable this represents a hematoma, but given that this is present on the side of the suspicious nodule I would like to exclude suspicious lymph node. Plan: formal soft tissue ultrasound of the left neck I have examined the patient and the H&P has been reviewed. There are no clinical changes since date of exam. Patient did have soft tissue ultrasound following her last visit and radiology interpreted the results and images as simply consistent with swelling of the musculature lateral to the internal jugular vein. Patient nor her have any further questions and procedure expectations were reviewed in the room. Therefore we will proceed to the operating room for planned left thyroid lobectomy and isthmusectomy with intraoperative nerve monitoring.
--- NOTE | 2023-03-08 11:36 | DCINST_ITS ---
Discharge Instructions Diet Discharge Diet: Soft diet (Okay to advance to unrestricted once tolerating) Activity Discharge Activity: May Not Drive (While still difficult to turn head from side to side (impairing blindspot checking) OR if taking narcotic pain medications) May shower in (days): 2 Ice area for (Minutes): 20 Dressing / Incision Call your doctor if your incision/area has: Continuous Slow Oozing, Sudden Increased Bleeding, Increased Pain/ Swelling, Increased Redness and Swelling at the incision site Call your doctor if you observe: Fever of 101 or Higher, Numbness or Tingling (of fingertips or lips) and - (Difficulty swallowing) Remove Dressing in: 2 days (Remove outer dressing but leave steri strips in place until they fall off spontaneously) Cleanse incision/area with: Soap & Water (Avoid scrubbing/ submersing) Follow Up Care Please Follow Up With: Nikko Argueta MD When: In 10 days for postop check Test Results: Test results from this visit will be discussed in further detail at your follow- up appointment, if applicable. Discharge Plan Admission Primary Reason for Your Visit: Left thyroid lobectomy Attending Provider: Nikko Argueta Primary Care Provider: Ailyn Alvarez Instructions Additional Instructions / Restrictions: Please take a regular strength Tums if you experience numbness or tingling of your lips or fingertips and notify general surgery office immediately. Please keep head elevated for the first 48 hours postoperatively. Discharge Orders/Prescriptions Prescriptions: No Action albuterol sulfate [Ventolin HFA] 90 mcg/actuation HFA aerosol inhaler 2 puff inhalation Q4H PRN (Reason: shortness of breath or wheezing) Qty: 18 6RF psyllium husk [Fiber (psyllium husk)] 0.4 gram capsule 0.8 g PO DAILY ibandronate 150 mg tablet 150 mg PO QMONTH Qty: 12 1RF oxycodone 5 mg tablet 5 mg PO DAILY PRN (Reason: pain ) 7 Days Qty: 7 0RF Rx Instructions: pain 4-10 tizanidine 4 mg capsule 4 mg PO TID PRN (Reason: MUSCLE RELAXER) Qty: 30 0RF Spiriva Respimat 2.5 mcg/actuation mist 2 puff inhalation DAILY Qty: 4 6RF budesonide-formoterol [Symbicort] 160-4.5 mcg/actuation HFA aerosol inhaler 2 puff inhalation BID Qty: 10.2 6RF Rx Instructions: administer with spacer, rinse mouth after each use duloxetine [Cymbalta] 60 mg capsule,delayed release(DR/EC) 60 mg PO DAILY Qty: 90 1RF rosuvastatin 10 mg tablet 10 mg PO QHS Qty: 90 1RF gabapentin 100 mg capsule 100 mg PO BID Qty: 60 0RF Referrals / Follow Up: Ailyn Alvarez MD [Primary Care Provider] - Disposition Disposition (needs filled in before D/C Order can be placed): Home, Self Care
--- NOTE | 2023-03-08 11:36 | OP.PCM_ITS ---
Report of Operation Date of Procedure: 03/08/23 Pre-Operative Diagnosis: Suspicious left thyroid nodule by cytology and next ge neration sequencing Post-Operative Diagnosis: Same Surgery/Procedure Performed:: Left thyroid lobectomy and isthmusectomy with intraoperative nerve monitoring Description of Surgical Findings:: ? Well vascularized left thyroid lobe with numerous adhesions between the overlying strap muscles and the thyroid capsule but no evidence of invasion ? Well-functioning left recurrent laryngeal nerve ? Grossly identified, well vascularized left inferior parathyroid Surgeon: Nikko Argueta research program assistant: Lila Dumont Type of Anesthesia: General/Supplemental Anesthesiologist: Duane Mercedes Specimen's removed: Left thyroid lobe and isthmus Drains: None Estimated Blood Loss (mL): 30 Description of Procedure: After appropriate identification in the preoperative holding area, the patient was brought to the operating room where she was positioned supine on the operating room table. Induction of general endotracheal anesthetic was begun and a NIMS tube was placed under glidescope view to confirm coaptation with the vocal cords anteriorly. Tube was then secured and the patient was positioned with a shoulder roll so that her head was in extension but supported. The Nims electrodes were placed and connected to the monitor. We had appropriate resistance showing on the monitor and tapping at the level of the cricoid produce a graphical representation of the impulse on the monitor. Patient's neck was then prepped and draped in usual sterile fashion and a formal timeout was conducted from those present. The lowest skin fold to the sternal notch was selected for incision site (this resided approximately 2 and half fingerbreadths cephalad to the notch). An incision was extended for 2.5 cm on either side of midline. Electrocautery was used to deepen this incision through the level of the platysma. Subplatysmal flaps were raised with the use of electrocautery and blunt dissection. The strap muscles were then divided along the medial raphe bringing us down to the level of the thyroid. Capsular attachments to the thyroid were divided with the use of LigaSure or bluntly swept away with dissection. Retractors were placed regarding excellent visualization of the superior pole of the thyroid. The vessels of the superior pole were sequentially ligated with the use of the LigaSure device taking care to ligate the vessels directly adjacent the capsule to minimize risk of injury to the superior laryngeal nerve. We then moved inferiorly and divided those polar vessels with LigaSure. The inferior parathyroid gland was grossly visualized and preserved with this division. With the poles freed the thyroid was mobilized medially. I bluntly the remaining strap muscle fibers from the thyroid capsule and using blunt dissection parallel to the presumed course of the recurrent laryngeal nerve, exposed the tracheoesophageal groove. Here I visualized a pearlescent left recurrent laryngeal nerve candidate and shortly thereafter obtained a positive Nims signal. The nerve positively identified, I relieved the attachments of the thyroid gland to the underlying trachea with the use of LigaSure. This proved somewhat challenging in the lateral aspect of the thyroid given the larger than usual tubercle of Zuckerkandl. As we again approached the nerve insertion of the cricothyroid membrane, I elected to leave a minuscule amount of thyroid tissue intact using 4-0 silk ligatures. The recurrent laryngeal nerve signal was checked prior to the division of any thyroid tissue. In the cephalad portion of the incision, I examined the anterior surface of the larynx for any evidence of a pyramidal lobe but found none. Once I had assured clearance from the nerve, the remaining thyroid tissue was removed from the anterior surface of the trachea with electrocautery to include the entirety of the thyroid isthmus. The specimen was divided with the LigaSure device for hemostasis and passed off the field for permanent section. Pressure was applied to the surgical cavity and there was some slight oozing along the anterior surface of the trachea well away from the recurrent laryngeal nerve where selective electrocautery was applied to the thyroid remnant tissue. Closer to the nerve there was some additional oozing and Surgicel hemostatic agent was placed while pressure was applied. Once this pressure was relieved, the surgical cavity was again inspected and we found hemostasis to be intact. We also confirmed the presence of the inferior parathyroid gland as well as a well-functioning recurrent laryngeal nerve. Satisfied with this result, the strap muscles were closed with a running 3-0 Vicryl stitch leaving a small gap at the inferior aspect of the suture line. The platysmal flaps were closed with interrupted 3-0 Vicryl. Some additional local anesthetic was infiltrated throughout the dermis and the skin was closed in a subcuticular fashion using 4- 0 Monocryl. Steri-Strips were applied. Telfa and Tegaderm were used as a dressing. The patient was then awakened from anesthetic without event and was taken to PACU for ongoing recovery. Complications None Admit VTE Documentation VTE Mechan Device Prophylaxis: SCD's Procedures Endocrine CF Procedures [id number]: [id number] Partial thyroid excision
[2023-03-08] MEDS: Ipratropium/Albuterol Sulfate 3 ML AMPUL.NEB INHALATION (12:34)
[2023-03-08] MEDS: Acetaminophen 325 MG Tablet 650 MG PO (13:13)
== END 2023-03-08 14:40 | disposition home or self-care (01) ==
LOC: SDC 05:41 → AC 05:41
PROVIDERS: PCP Internal Medicine; Referring Provider Surgery; Visit Provider Surgery
PROC: (CPT 60210; principal; 2023-03-08 07:15)
DX: E04.2 Nontoxic multinodular goiter (principal); C79.31 Secondary malignant neoplasm of brain; C34.90 Malignant neoplasm of unspecified part of unspecified bronchus or lung; J44.9 Chronic obstructive pulmonary disease, unspecified; C73 Malignant neoplasm of thyroid gland; F12.90 Cannabis use, unspecified, uncomplicated; E78.5 Hyperlipidemia, unspecified; Z87.891 Personal history of nicotine dependence; Z79.899 Other long term (current) drug therapy
CPT/HCPCS: 60210; 00320; 88307; 88341; 88342; 94640; J7120; A4216; J2405

== ENCOUNTER → 2023-03-27 | Outpatient (CLI) | payer MEDICAID, SELFPAY ==
--- NOTE | 2023-03-27 12:34 | CT_ITS ---
INDICATION: RESTAGING NSCLC EXAMINATION: CT CHEST AND ABDOMEN WITH CONTRAST - CT Chest And Abdomen W/ Contrast Injection TECHNIQUE: Helically acquired images were obtained of the chest and abdomen. A radiation dose optimization technique was used for this scan. IV Contrast dosage and agent: 100 Isovue-300 Oral contrast: None. COMPARISON: Prior study dated: 12/30/2022 FINDINGS: ----Chest: LUNGS, PLEURA AND LARGE AIRWAYS: Left upper lobectomy. Mild to moderate emphysema. Stable pleural parenchymal scarring at the anterior left lung base. There are couple stable 3 mm nodules in the anterior segment of the right upper lobe. No pleural effusion or thickening. No pneumothorax. THYROID: Left hemithyroidectomy suspected with overlying fat stranding. HEART AND PERICARDIUM: Heart size is normal. No pericardial effusion. VESSELS: Thoracic aorta is not dilated. MEDIASTINUM AND MERVIN: Stable enlarged subcarinal lymph node measuring 1.4 cm short axis. No additional pathologically enlarged mediastinal lymph nodes. Esophagus is unremarkable. No hiatal hernia. BONES: No suspicious lytic or blastic abnormality. Demineralized bones. Stable compression fractures at T6, T8 and T11. ----Abdomen (without Pelvis): LIVER: Homogeneous. No focal mass. GALLBLADDER AND BILIARY TREE: No calcified gallstones. No gallbladder distension or wall edema. No intra- or extrahepatic biliary ductal dilation. PANCREAS: No focal cystic or solid mass. SPLEEN: Normal size without focal cystic or solid mass. ADRENAL GLANDS: No nodules. KIDNEYS AND URETERS: Normal renal size and position. No hydronephrosis. PERITONEUM: No ascites or free air. No other fluid collection. BOWEL: The imaged gastrointestinal tract is unremarkable. LYMPH NODES: No enlarged mesenteric or retroperitoneal lymph nodes. VESSELS: Aorta is non-dilated. ABDOMINAL WALL: No discrete abdominal wall hernia. BONES: No lytic or blastic abnormality. CT/CT Chest AND Abd W/ Contrast IMPRESSION: * Interval left hemithyroidectomy with expected postsurgical fat stranding/inflammation in the overlying soft tissues. * Prior left upper lobectomy with stable pleural parenchymal scarring at the left lung base. * There are 2 stable 3 mm nodules in the anterior segment of the right upper lobe as shown on the johnson images. * Stable enlarged subcarinal lymph node measuring 1.4 cm short axis. * Mild/moderate emphysema. * No evidence of metastatic disease within the abdomen. Electronically Signed: Timothy Tucker MD at 18:13 EDT ,
[2023-03-27 13:08] LABS: CREATININE FINGERSTICK < 0.9 mg/dL (0.55-1.02); EGFR FINGERSTICK > 60.0000 mL/min (>60)
[2023-03-27] MEDS: 0.9 % NaCl (Sterile) Posiflush 10 mL IV (13:17)
== END | disposition home or self-care (01) ==
LOC: CT 12:29
PROVIDERS: PCP Internal Medicine; Referring Provider Internal Medicine Hematology & Oncology; Visit Provider Internal Medicine Hematology & Oncology
DX: C34.12 Malignant neoplasm of upper lobe, left bronchus or lung (principal); C79.31 Secondary malignant neoplasm of brain
CPT/HCPCS: 71260; 74160; Q9967; A4216

== ENCOUNTER → 2023-03-28 | Outpatient (CLI) | payer MEDICAID, SELFPAY ==
--- NOTE | 2023-03-28 07:46 | MRI_ITS ---
INDICATION: BRAIN METS F/U SP RADT TX EXAMINATION: MRI - MR Brain WO/W Contrast TECHNIQUE: Multiplanar and multisequence MR images of the brain were obtained without and with gadolinium. IV Contrast Dosage and Agent: None. COMPARISON: MRI January 30, 2023. FINDINGS: BRAIN PARENCHYMA: Status post right frontal craniotomy. Cystic encephalomalacia in this region is stable. There is a thin rim of contrast enhancement at the periphery of the operative bed consistent with normal postoperative gliosis. Metastatic lesion in the posterior left insular cortex is ring-enhancing and measures 4.51 cm previous 0.3 cm. In the postcentral gyrus previously visualized enhancing metastatic lesion has decreased now measuring 0.22 cm. There is underlying mild chronic microvascular ischemic change in the periventricular white matter. INTERNAL AUDITORY CANALS: The internal auditory canals are well visualized and patent. No mass identified. CSF SPACES: Appropriate for age. No hydrocephalus. Basal cisterns are patent. VASCULAR SYSTEM: Normal flow voids in the major intracranial circulation. CALVARIUM, SKULL BASE, PARANASAL SINUSES AND MASTOID AIR CELLS: Clear. No expansile changes. ORBITS: Both globes, extraocular muscles, optic nerves and retrobulbar fat appear unremarkable. MRI/Brain W/WO Contrast IMPRESSION: Status post right frontal craniotomy with stable postoperative changes including cystic encephalomalacia and postoperative gliosis. Left posterior insular and left posterior parietal metastatic lesions detailed above. Electronically Signed: Glen Guidry MD at 10:49 EDT ,
[2023-03-28] MEDS: 0.9% Saline Lock 10 ML Syringe IV (09:04)
== END | disposition home or self-care (01) ==
LOC: MRI 07:30
PROVIDERS: PCP Internal Medicine; Referring Provider Radiology Radiation Oncology; Visit Provider Radiology Radiation Oncology
DX: C79.31 Secondary malignant neoplasm of brain (principal)
CPT/HCPCS: 70553; A9575; A4216

== ENCOUNTER → 2023-03-31 | Outpatient (CLI) | payer MEDICAID, SELFPAY ==
--- NOTE | 2023-03-31 08:13 | NM_ITS ---
CLINICAL: 62-year-old female with history of primary lung carcinoma. WHOLE BODY 99m Tc MDP RADIONUCLIDE BONE SCINTIGRAPHY COMPARISON: None available FINDINGS: Following the intravenous administration of 26.8 mCi of 99m Tc MDP, whole body bone images reveal: 1. Increased radiopharmaceutical concentration is defined in the right lateral second, the right anterior fourth and sixth ribs. Uptake defined in the right posterior ribs is likely due to shine through artifact. 2. Enhanced uptake is noted in the acromioclavicular compartments of both shoulders, sternoclavicular compartment of the right shoulder, the bilateral knees, the left ankle, the elbows bilaterally, the third through fifth lumbar vertebra, the third and 11th thoracic vertebra posteriorly on the left. 3. The remaining skeletal structures are scintigraphically unremarkable with normal-appearing renal images and urinary bladder activity identified. Asymmetric increased uptake is noted in the right superior orbit most consistent with a normal variant associated with visualization of the frontozygomatic suture. NM/Bone Scan Whole Body IMPRESSION: 1. The increase in tracer uptake noted in the right anterior ribs is most consistent with trauma-fracture. Plain film radiography correlation may be of benefit. 2. Degenerative arthrosis is defined in the shoulders bilaterally, right-left knees, the left ankle, both elbow articulations, the thoracic and lumbar spine. Electronically Signed: Zach Ruiz DO at 10:51 EDT ,
[2023-03-31] MEDS: 0.9% Saline Lock 10 ML Syringe IV (08:45)
== END | disposition home or self-care (01) ==
LOC: NM 08:13
PROVIDERS: PCP Internal Medicine; Referring Provider Internal Medicine Hematology & Oncology; Visit Provider Internal Medicine Hematology & Oncology
DX: C34.12 Malignant neoplasm of upper lobe, left bronchus or lung (principal); C79.31 Secondary malignant neoplasm of brain
CPT/HCPCS: 78306; A9503; A4216

== ENCOUNTER 2023-04-13 10:33 | Outpatient (CLI) | payer MEDICAID, SELFPAY ==
[2023-04-13 11:28] LABS: Free T3 2.7 pg/mL (2.18-3.98); T4 Total, Thyroxin 8.1 ug/dL (4.8-13.9); Thyroid Stim Hormone (TSH) 0.76 uIU/mL (0.358-3.74)
[2023-04-13 19:00] LABS: Xtra Tube EP Lab EXTRA TUBE
== END 2023-04-13 10:34 | disposition home or self-care (01) ==
LOC: MEDOUTP 10:33
PROVIDERS: PCP Internal Medicine; Referring Provider Surgery; Visit Provider Surgery
DX: E04.2 Nontoxic multinodular goiter (principal)
CPT/HCPCS: 36415; 36591; 84436; 84443; 84481; A4216

== ENCOUNTER → 2023-06-13 | Outpatient (CLI) | payer MEDICAID, SELFPAY ==
--- NOTE | 2023-06-13 10:53 | MRI_ITS ---
We are attempting to reach an attending provider to discuss findings. An addendum with communication details will be sent when the communication is complete. EXAM: MR HEAD WITHOUT AND WITH INTRAVENOUS CONTRAST CLINICAL INDICATION: Brain metastases from non-small cell lung carcinoma. Status post radiation therapy completed 04/25/2023. TECHNIQUE: Multiplanar and multisequence MR images of the brain were obtained without and with intravenous contrast. COMPARISON: MRI brain with and without contrast 03/28/2023. FINDINGS: BRAIN AND EXTRA-AXIAL SPACES: The small ring-enhancing metastatic mass at the corticomedullary junction of the left posterior insular lobe is decreased in size and has the appearance of one tiny solid enhancing lesion. There are, however, increased number of ring-enhancing metastatic brain mass is located in the posterior right superior frontal gyrus, right inferior parietal lobule, the cuneus of the left occipital lobe, the left inferior temporal gyrus, the left lateral occipitotemporal gyrus and the right medial occipitotemporal gyrus. They have minimal surrounding vasogenic edema. No intra- or extra-axial hemorrhage. SELLA: Unremarkable. Normal sella turcica, pituitary gland, infundibular stalk, optic chiasm and hypothalamus. AUDITORY SYSTEM: Unremarkable. The internal auditory canals are patent. BONES/JOINTS: Right frontal craniotomy and the surgical cavity in the right middle frontal gyrus and the residual vasogenic edema are unchanged. No discrete lytic or blastic abnormalities. SINUSES: Unremarkable as visualized. Clear. MASTOID AIR CELLS: Unremarkable as visualized. Clear. ORBITS: Unremarkable as visualized. Both globes, extraocular muscles, optic nerves and retrobulbar fat appear unremarkable. VASCULATURE: Unremarkable as visualized. Normal flow voids in the major intracranial circulation. MRI/Brain W/WO Contrast IMPRESSION: 1. Increased number of ring-enhancing brain metastatic mass lesions with minimal surrounding vasogenic edema located in the corticomedullary junction of the posterior right superior frontal gyrus, right inferior parietal lobule, the cuneus of the left occipital lobe, the left inferior temporal gyrus, left lateral occipital temporal gyrus and the right medial occipital temporal gyrus. 2. Decrease in size of small ring-enhancing metastatic nodule at the corticomedullary junction of the left posterior insular lobe is now a tiny dot of ring-enhancing metastatic lesion. 3. Right frontal craniotomy, surgical cavity in the right middle frontal gyrus in the underlying vasogenic edema are unchanged. Electronically Signed: Abhinav Odom MD at 9:41 EST ,
[2023-06-13 11:41] LABS: CREATININE FINGERSTICK < 1.0 mg/dL (0.55-1.02); EGFR FINGERSTICK > 60.0000 mL/min (>60)
[2023-06-13] MEDS: 0.9 % NaCl (Sterile) Posiflush 10 mL IV (11:58)
== END | disposition home or self-care (01) ==
PROVIDERS: PCP Internal Medicine
DX: C79.31 Secondary malignant neoplasm of brain (principal)
CPT/HCPCS: 70553; A9575; A4216

== ENCOUNTER → 2023-08-21 | Outpatient (CLI) | payer MEDICAID, SELFPAY ==
--- NOTE | 2023-08-21 10:17 | MRI_ITS ---
HISTORY: LUNG CA,BRAIN METS,MULTIPLE COURSED SRS,TX RESPONSE. TECHNIQUE: Multiplanar and multisequence MR images of the brain were obtained before and after the intravenous administration of 13 mL Clariscan. 679 images. COMPARISON: 06/13/2023, 03/28/2023. FINDINGS: BRAIN PARENCHYMA: Small enhancing lesion in the left posterior insula no longer visualized. 4 mm ring-enhancing lesion in the left temporal lobe with surrounding edema, previously 7 mm. 3 mm and 2 mm nodular enhancing left occipital lesions, previously 6 mm and 4 mm with ring enhancement. Stable 2 mm ring-enhancing lesion in the right postcentral gyrus. Stable 2 mm nodular enhancing lesion in the right posterior parietal parasagittal region. 2 mm nodular right posterior parietal enhancing lesion with decreased surrounding edema, previously 4 mm. 3 mm ring-enhancing right occipital and right periatrial lesions, previously 2 mm. New 1-2 mm nodular enhancing lesion in the right temporal lobe on image 53 of series 12 with a stable 2 mm enhancing nodule again seen more anteriorly. Unchanged appearance of right frontal encephalomalacia with mild linear postoperative enhancement, surrounding gliosis, and overlying craniotomy. Chronic white matter changes noted. No acute cortical infarct or intracranial hemorrhage identified. CSF SPACES: Chronic mild volume loss. No significant midline shift or other mass effect.No extra-axial fluid collection. VASCULAR SYSTEM: Major intracranial flow voids are maintained. PARANASAL SINUSES AND MASTOID AIR CELLS: Mild fluid in the right mastoid air cells. ORBITS: Symmetric contents. MRI/Brain W/WO Contrast IMPRESSION: Mixed response to treatment with multiple ring-enhancing metastases decreased in size, but a few right temporal occipital lesions slightly increased in size and number. No significant interval change in appearance of right frontal resection cavity. Electronically Signed: Amie Carson MD at 9:33 EST ,
[2023-08-21 10:49] LABS: CREATININE FINGERSTICK < 1.0 mg/dL (0.55-1.02); EGFR FINGERSTICK > 60.0000 mL/min (>60)
[2023-08-21] MEDS: 0.9 % NaCl (Sterile) Posiflush 10 mL IV (11:05)
[2023-08-21] MEDS: 0.9% Saline Lock 10 ML Syringe IV (11:10)
== END | disposition home or self-care (01) ==
LOC: MRI 10:07
PROVIDERS: PCP Internal Medicine; Referring Provider Nurse Practitioner; Visit Provider Nurse Practitioner
DX: C79.31 Secondary malignant neoplasm of brain (principal); C34.90 Malignant neoplasm of unspecified part of unspecified bronchus or lung
CPT/HCPCS: 70553; A9575; A4216

== ENCOUNTER → 2023-09-18 | Outpatient (CLI) | payer MEDICAID, SELFPAY ==
--- NOTE | 2023-09-18 12:53 | CT_ITS ---
INDICATION: F/U NSCLC EXAMINATION: CT CHEST AND ABDOMEN WITH CONTRAST - CT Chest And Abdomen W/ Contrast Injection TECHNIQUE: Helically acquired images were obtained of the chest and abdomen. A radiation dose optimization technique was used for this scan. IV Contrast dosage and agent: 100 cc of Isovue-370 Oral contrast: None. COMPARISON: Prior study dated: 03/27/2023 FINDINGS: ----Chest: LUNGS, PLEURA AND LARGE AIRWAYS: Status post left upper lobectomy. Moderate scarring in the lingula. Stable vague visualized 3 mm nodular densities the right upper lobe. No new masses are seen. No pleural effusion or thickening. No pneumothorax. THYROID: Status post left thyroidectomy. Probable tiny nodule in the right lobe HEART AND PERICARDIUM: Heart size is normal. No pericardial effusion. Mild coronary calcifications. VESSELS: Thoracic aorta is not dilated. MEDIASTINUM AND MERVIN: Enlarged subcarinal node measuring about 1.5 cm unchanged. No evidence of hilar adenopathy. Esophagus is unremarkable. No hiatal hernia. BONES: No suspicious lytic or blastic abnormality. Mild compression of mid thoracic vertebra unchanged. ----Abdomen (without Pelvis): LIVER: Prominent homogenous liver. No focal mass. GALLBLADDER AND BILIARY TREE: No calcified gallstones. No gallbladder distension or wall edema. No intra- or extrahepatic biliary ductal dilation. PANCREAS: No focal cystic or solid mass. SPLEEN: Normal size without focal cystic or solid mass. ADRENAL GLANDS: No nodules. KIDNEYS AND URETERS: Tiny cysts in the lower pole of the left kidney appears to be simple and no further follow-up exam is needed. No hydronephrosis. PERITONEUM: No ascites or free air. No other fluid collection. BOWEL: Nonspecific fluid-filled small bowel loops without evidence of obstruction. Fecal retention. No focal inflammatory change in the visualized portions of the bowel. LYMPH NODES: No enlarged mesenteric or retroperitoneal lymph nodes. VESSELS: Aorta is non-dilated. ABDOMINAL WALL: No discrete abdominal wall hernia. BONES: No lytic or blastic abnormality. Degenerative changes of the spine.. CT/CT Chest AND Abd W/ Contrast IMPRESSION: 1. No evidence of new metastatic disease. Stable tiny nodules the right upper lobe. 2. Prominent mediastinal nodes unchanged. 3. No focal acute inflammatory process. 4. Status post left upper lobectomy and left thyroidectomy. Electronically Signed: Levi Hallman MD at 14:32 EDT ,
[2023-09-18] MEDS: 0.9% Saline Lock 10 ML Syringe IV (13:30)
== END | disposition home or self-care (01) ==
PROVIDERS: PCP Internal Medicine; Visit Provider Internal Medicine Hematology & Oncology
DX: C73 Malignant neoplasm of thyroid gland (principal); C79.31 Secondary malignant neoplasm of brain; C34.12 Malignant neoplasm of upper lobe, left bronchus or lung
CPT/HCPCS: 71260; 74160; Q9967

== ENCOUNTER → 2023-09-21 | Outpatient (CLI) | payer MEDICAID, SELFPAY ==
--- NOTE | 2023-09-21 10:00 | NM_ITS ---
CLINICAL: 63-year-old female with history of primary lung carcinoma. WHOLE BODY 99m Tc MDP RADIONUCLIDE BONE SCINTIGRAPHY COMPARISON: Previous whole body bone scintigraphy study dated 03/31/2023 FINDINGS: Following the intravenous administration of 27.0 mCi of 99m Tc MDP, whole body bone images reveal: 1. There is redefined increased tracer uptake noted in the right anterolateral and anterior ribs. 2. Facilitated radiopharmaceutical is currently demonstrated in the medial tibial compartment of the left knee, anteromedial femoral compartment of the left knee, the 11th thoracic and fifth lumbar vertebra, the acromioclavicular compartments of both shoulders, sternoclavicular compartment of the right shoulder, the left ankle. 3. The remaining skeletal structures are scintigraphically unremarkable with normal-appearing renal images and urinary bladder activity identified. NM/Bone Scan Whole Body IMPRESSION: 1. The increase in radiopharmaceutical concentration defined in the right anterolateral and anterior ribs remains consistent with trauma-fracture. 2. Degenerative arthrosis is currently expressed in the bilateral knees, the 11th thoracic and fifth lumbar vertebra, the bilateral shoulders and the left ankle. 3. Overall compared to the previous whole body bone scintigraphy study dated 03/31/2023, there is minimal interval change. Electronically Signed: Zach Ruiz DO at 23:28 EDT ,
[2023-09-21] MEDS: 0.9% Saline Lock 10 ML Syringe IV (10:18)
== END | disposition home or self-care (01) ==
PROVIDERS: PCP Internal Medicine; Referring Provider Internal Medicine Hematology & Oncology; Visit Provider Internal Medicine Hematology & Oncology
DX: C73 Malignant neoplasm of thyroid gland (principal); C79.31 Secondary malignant neoplasm of brain; C34.12 Malignant neoplasm of upper lobe, left bronchus or lung
CPT/HCPCS: 78306; A9503; A4216

== ENCOUNTER → 2023-11-14 | Outpatient (CLI) | payer MEDICAID, SELFPAY ==
--- NOTE | 2023-11-14 12:54 | MRI_ITS ---
HISTORY: LUNG CA W/ BRAIN METS, PREVIOUS MRI. TECHNIQUE: Multiplanar and multisequence MR images of the brain were obtained before and after the intravenous administration of 13 mL Clariscan. 684 images. COMPARISON: 08/21/2023, 06/13/2023, and 03/28/2023. FINDINGS: BRAIN PARENCHYMA: Multiple nodular and ring-enhancing lesions with surrounding vasogenic edema. Punctate right postcentral gyrus lesion, decreased in size from prior. 3 mm ring-enhancing right parietal parasagittal lesion, mildly increased in size with increased surrounding edema. 2 mm faint nodular enhancing lesion in the right posterior parietal lobe, decreased in size and shine through artifact. 2 punctate enhancing right occipital lesions, both decreased in size. 5 mm right periatrial enhancing lesion, mildly increased in size and enhancement from prior. 3 mm enhancing lesion in the right temporal lobe, increased in size and surrounding edema. 5 mm enhancing lesion with surrounding edema in the right cerebellum posterior medially, new from prior. 1-2 mm faint enhancing lesion in the left occipital lobe, decreased enhancement compared to prior. 5 mm ring-enhancing lesion in the left temporal lobe with surrounding edema, similar to prior. Decreased shine through artifact in the right posterior parietal lobe. No new focus of restricted diffusion to suggest acute infarct. Chronic susceptibility artifact related to right frontal craniotomy with mild right frontal encephalomalacia, mild linear enhancement, and chronic gliosis in the resection cavity. No acute intracranial hemorrhage identified. CSF SPACES: Chronic mild volume loss. No significant midline shift or other mass effect.No extra-axial fluid collection. VASCULAR SYSTEM: Major intracranial flow voids are maintained. PARANASAL SINUSES AND MASTOID AIR CELLS: Mild fluid again seen in the right mastoid air cells. ORBITS: Symmetric contents. MRI/Brain W/WO Contrast IMPRESSION: Mild interval progression of brain metastases with a new 5 mm right cerebellar lesion and mildly increased size of right parasagittal, periatrial, and temporal lesions. Mixed treatment response with mildly decreased size of right postcentral gyrus, right posterior parietal, and bilateral occipital lesions. Unchanged size of 5 mm left temporal lobe lesion. Right frontal postoperative change. Chronic involutional and white matter changes. Electronically Signed: Amie Carson MD at 11:50 EDT ,
[2023-11-14 15:14] LABS: CREATININE FINGERSTICK < 1.0 mg/dL (0.55-1.02); EGFR FINGERSTICK > 60.0000 mL/min (>60)
[2023-11-14] MEDS: 0.9% Saline Lock 10 ML Syringe IV (15:35)
== END | disposition home or self-care (01) ==
LOC: MRI 12:52
PROVIDERS: PCP Internal Medicine; Referring Provider Nurse Practitioner; Visit Provider Nurse Practitioner
DX: C79.31 Secondary malignant neoplasm of brain (principal)
CPT/HCPCS: 70553; A9575; A4216

== ENCOUNTER → 2024-02-07 | Outpatient (CLI) | payer MEDICAID, SELFPAY ==
--- NOTE | 2024-02-07 12:13 | MRI_ITS ---
STUDY: MRI BRAIN WITH AND WITHOUT CONTRAST REASON FOR EXAM: Female, 63 years old. LUNG CA WITH BRAIN METS,S/P MULTIPLE SRS -- EVALUATE TREATMENT RESPONSE TECHNIQUE: Standardized multiplanar fat and water weighted pulse sequences were obtained. CLARISCAN 14ML IV was administered for the contrast portion of the examination. COMPARISON: 11/14/2023 FINDINGS: There is mild cerebral atrophy with widening of the extra-axial spaces and ventricular dilatation. There are a limited number of small white matter hyperintensities, distributed throughout the deep white matter tracts of the cerebral hemispheres, consistent with mild chronic white matter ischemic changes. There is no evidence for recent intracranial ischemia or other cause of cytotoxic edema on diffusion weighted imaging (DWI). Normal T2* images of the brain without demonstrated susceptibility artifact. There is no demonstrated hemosiderin stain. Normal bilateral basal ganglia. Normal thalami. There is no extra-axial fluid accumulation. Normal flow voids within the major intracranial circulation suggesting patency by spin echo criteria. Normal venous enhancement. There is an increase in the size of the multiple solid and peripherally enhancing masses with surrounding vasogenic edema throughout the brain consistent with worsening metastatic disease. The largest lesion is in the posterior subdural posterior right parietal lobe and measures 1 cm in diameter. Normal sella turcica, pituitary gland, infundibular stalk, optic chiasm and hypothalamus. Normal tectal plate and pineal gland. Normal midbrain, david and medulla. Normal cerebellum. Normal basal cisterns. There is moderate chronic otomastoiditis of the right temporal bone. Normal bilateral internal auditory canals. No demonstrated orbital abnormality, within the constraints of a routine brain study. Normal visualized paranasal sinuses. Healed right parietal craniotomy. Normal visualized soft tissue structures. Normal visualized upper cervical spine. MRI/Brain W/WO Contrast IMPRESSION: Worsening metastatic disease. Electronically Signed: Zach Arceo MD at 13:10 EDT ,
[2024-02-07] MEDS: 0.9% Saline Lock 10 ML Syringe IV (13:02)
== END | disposition home or self-care (01) ==
LOC: MRI 12:09
PROVIDERS: PCP Internal Medicine; Referring Provider Nurse Practitioner; Visit Provider Nurse Practitioner
DX: C34.90 Malignant neoplasm of unspecified part of unspecified bronchus or lung (principal); C79.31 Secondary malignant neoplasm of brain
CPT/HCPCS: 70553; A9575; A4216

== ENCOUNTER → 2024-03-21 | Outpatient (CLI) | payer MEDICAID, SELFPAY ==
--- NOTE | 2024-03-21 13:35 | CT_ITS ---
STUDY: CT CHEST T ABDOMEN WITH CONTRAST REASON FOR EXAM: Female, 63 years old. F/U NSCLC. Status post left upper lobectomy. RADIATION DOSAGE (If Supplied By Facility): CTDIvol = ( 11.84 ) mGy, DLP = ( 742.63 ) mGycm TECHNIQUE: Transaxial imaging was performed following intravenous administration of IV 100mL Isovue-300. Individualized dose optimization techniques were used for this CT. COMPARISON: Comparison is made with prior study dated September 18, 2023. FINDINGS: CHEST A right-sided portacatheter is seen with the tip in the superior vena cava. The patient is status post left thyroidectomy. Once again, the patient is status post left upper lobectomy. There is evidence of shift of the heart and mediastinal structures towards the left side of midline due to the lobectomy. Stable scarring with focal pleural thickening along the posterior aspect of the lingular segment of the left upper lobe. Stable vaguely visualized 3 mm nodular density in the right upper lobe. There is no demonstrated pleural abnormality. There are calcifications of the coronary arteries. Stable subcarinal lymph nodes. These measure upper limits of normal. Normal hilar regions. Normal unenhanced pulmonary arteries. Normal aorta arch and descending thoracic aorta. Stable mild compression of mid thoracic vertebrae. ABDOMEN Normal liver. Normal gallbladder and extrahepatic biliary system. Normal spleen. Normal pancreas. Normal bilateral adrenal glands. Normal right kidney. Normal left kidney. Normal visualized stomach. Normal small intestine. Normal colon. The appendix is visualized and appears normal. Normal abdominal aorta. Normal inferior vena cava. Normal retroperitoneum. Normal abdominal wall. There are degenerative changes of the visualized lumbar spine. CT/CT Chest AND Abd W/ Contrast IMPRESSION: Stable examination. Status post left upper lobectomy. Electronically Signed: David Brar MD at 13:12 EDT ,
[2024-03-21] MEDS: 0.9% Saline Lock 10 ML Syringe IV (14:00)
[2024-03-21 14:11] LABS: CREATININE FINGERSTICK < 1.0 mg/dL (0.55-1.02); EGFR FINGERSTICK > 60.0000 mL/min (>60)
== END | disposition home or self-care (01) ==
LOC: CT 13:32
PROVIDERS: PCP Internal Medicine; Referring Provider Internal Medicine Hematology & Oncology; Visit Provider Internal Medicine Hematology & Oncology
DX: C34.12 Malignant neoplasm of upper lobe, left bronchus or lung (principal); C79.31 Secondary malignant neoplasm of brain
CPT/HCPCS: 71260; 74160; Q9967; A4216

== ENCOUNTER → 2024-04-23 | Outpatient (CLI) | payer MEDICAID, SELFPAY ==
[2024-04-23 12:45] LABS: Cholesterol 171 mg/dL (200); High Density Lipoprotein 60 mg/dL; Thyroid Stim Hormone (TSH) 0.987 uIU/mL (0.358-3.740); Triglycerides 92 mg/dL; Very Low Density Lipoprotein 18 mg/dL (5-40)
== END | disposition home or self-care (01) ==
LOC: BIMLAB 08:44
PROVIDERS: PCP Internal Medicine; Referring Provider Internal Medicine; Visit Provider Internal Medicine
DX: Z13.6 Encounter for screening for cardiovascular disorders (principal); C73 Malignant neoplasm of thyroid gland
CPT/HCPCS: 36415; 80061; 84443

== ENCOUNTER → 2024-05-07 | Outpatient (CLI) | payer MEDICAID, SELFPAY ==
--- NOTE | 2024-05-07 13:19 | MRI_ITS ---
STUDY: MRI BRAIN WITH AND WITHOUT CONTRAST REASON FOR EXAM: Female, 63 years old. METS, REOCURRING TUMORS, LUNG CANCER TECHNIQUE: Standardized multiplanar fat and water weighted pulse sequences were obtained. IV 14ml Clariscan was administered for the contrast portion of the examination. Mild motion artifact is present. COMPARISON: MRI of the brain dated November 14, 2023. FINDINGS: 1. Moderate interval increase in the number of metastatic lesions scattered throughout the bilateral cerebral hemispheres. 2. Interval increase in size of the metastatic enhancing lesion in the parasagittal region and superior aspect of the right parietal lobe adjacent to the interhemispheric falx measuring 8.5 mm on the current study, previously measuring 3 mm 3. Interval appearance of a new 4.5 mm enhancing small metastatic lesion adjacent to the right parasagittal dominant mass. 4. Interval appearance of small less than 5 mm intensely enhancing metastatic nodules of the anterior middle one third aspect of the left frontal lobe, subcortical aspect of the left parietal lobe, and subcortical posterior superior region of the left parietal lobe. 5. A new enhancing 4.4 mm nodule is present in the posterior superior aspect of the right frontal lobe in the site of prior surgical resection. The overlying craniotomy changes and hardware is stable. 6. Interval appearance of several small metastatic nodules scattered throughout the anterior posterior aspect of the left temporal lobe and to a lesser extent the right temporal lobe and parasagittal/medial aspect of the right occipital lobe. Additional new metastatic lesions are present in the midline of the splenium of the corpus callosum. 7. Previously seen enhancing metastatic nodule in the posterior medial aspect of the right cerebellar lobe is not seen on this study. 8. Redemonstration of 2 tiny enhancing nodules in both the right and left cerebellar lobes. 9. Interval increase in significant vasogenic edema surrounding the metastatic lesions throughout the bilateral cerebral hemispheres with predominance in the periventricular regions. The vasogenic edema extends to the cranial apex bilaterally. There is mild cerebral atrophy with widening of the extra-axial spaces and ventricular dilatation. There are multiple confluent white matter hyperintensities, distributed throughout the deep white matter tracts of the cerebral hemispheres, consistent with severe chronic white matter ischemic changes. Normal T2* images of the brain without demonstrated susceptibility artifact. There is no demonstrated hemosiderin stain. Normal bilateral basal ganglia. Normal thalami. There is no extra-axial fluid accumulation. Normal flow voids within the major intracranial circulation suggesting patency by spin echo criteria. Normal venous enhancement. Normal sella turcica, pituitary gland, infundibular stalk, optic chiasm and hypothalamus. Normal tectal plate and pineal gland. Normal midbrain, david and medulla. Normal cerebellum. Normal basal cisterns. Normal bilateral temporal bones. Normal bilateral internal auditory canals. No demonstrated orbital abnormality, within the constraints of a routine brain study. Normal visualized paranasal sinuses. Normal calvarium and skull base. Normal visualized soft tissue structures. Normal visualized upper cervical spine. MRI/Brain W/WO Contrast IMPRESSION: 1. Moderate interval increase in enhancing metastatic lesions throughout the bilateral cerebral hemispheres Electronically Signed: Eduardo Hough MD at 15:17 EST ,
[2024-05-07] MEDS: 0.9% Saline Lock 10 ML Syringe IV (14:36)
== END | disposition home or self-care (01) ==
LOC: MRI 13:14
PROVIDERS: PCP Internal Medicine; Referring Provider Nurse Practitioner; Visit Provider Nurse Practitioner
DX: C79.31 Secondary malignant neoplasm of brain (principal); Z85.118 Personal history of other malignant neoplasm of bronchus and lung
CPT/HCPCS: 70553; A9575; A4216

== ENCOUNTER → 2024-06-03 | Outpatient (CLI) | payer MEDICAID, SELFPAY ==
[2024-06-03 12:38] VITALS: PULSE 100; PULSE 102; PULSE 103; PULSE 88; PULSE 89; PULSE 96; PULSE 98; O2SAT 96; O2SAT 98; O2SAT 99
--- NOTE | 2024-06-03 12:43 | RAD_ITS ---
STUDY: X-RAY - RIGHT KNEE REASON FOR EXAM: Female, 63 years old. Knee pain. TECHNIQUE: 4 view(s) of the knee. COMPARISON: None. FINDINGS: Normal visualized distal femur. Normal visualized proximal tibia and fibula. Normal proximal tibiofibular articulation. There is no demonstrated fracture. Normal medial femorotibial compartment. Normal lateral femorotibial compartment. Normal patellofemoral articulation. There is no demonstrated joint effusion. The soft tissue structures are unremarkable. RAD/Knee 4 or More Views IMPRESSION: Normal x-ray examination of the knee. Electronically Signed: Jose Mayes MD at 9:52 EST ,
--- NOTE | 2024-06-05 12:56 | PCM.PSN.6M ---
PSN 6 Minute Walk Test 6 Minute Walk Test 6 Minute Walk Test: 6 Minute Walk Test PSN:6-Minute Walk Test Start: 06/03/24 12:38 Freq: Status: Active Protocol: [id number] Document 06/03/24 12:38 DEREK (Rec: 06/03/24 12:40 DEREK [id number]) 6 Minute Walk Test Date Performed 06/03/24 Time Performed 12:30 Height 5 ft 4 in Weight: 154 lb Weight in Pounds 154.[address]: Layla Dove [employer] TECHNICIAN Assistive device used: Cane Pre-test Oxygen Delivery Method Room Air Pulse Ox (%) 98 Pulse Rate (60-100 beats/min) 89 Dyspnea Lu Scale (0-10) 0 Exertion Lu Scale (6-20) 6 1st minute Oxygen Delivery Method Room Air Pulse Ox (%) 96 Pulse Rate (60-100 beats/min) 96 2nd minute Oxygen Delivery Method Room Air Pulse Ox (%) 98 Pulse Rate (60-100 beats/min) 98 3rd minute Oxygen Delivery Method Room Air Pulse Ox (%) 98 Pulse Rate (60-100 beats/min) 100 4th minute Oxygen Delivery Method Room Air Pulse Ox (%) 98 Pulse Rate (60-100 beats/min) 102 H 5th minute Oxygen Delivery Method Room Air Pulse Ox (%) 99 Pulse Rate (60-100 beats/min) 103 H 6th minute Oxygen Delivery Method Room Air Pulse Ox (%) 98 Pulse Rate (60-100 beats/min) 103 H Dyspnea Lu Scale (0-10) 3 Exertion Lu Scale (6-20) 13 Post-test Oxygen Delivery Method Room Air Pulse Ox (%) 98 Pulse Rate (60-100 beats/min) 88 Full Laps Walked 14 Partial Lap, Number of Tiles Walked 26 Total Distance Walked (ft) 852 Interpretation Interpretation: The patient ambulated 852 feet over the course of 6 minutes beginning on room air with the use of a cane. Pretesting oxygen saturation was noted to be 98% on room air. With ambulation, the claudio oxygen saturation was 96%. There was no significant exertional oxygen desaturation. Recommendations Recommendations: There is no indication for the use of supplemental oxygen at this time.
== END | disposition home or self-care (01) ==
PROVIDERS: PCP Internal Medicine; Referring Provider Nurse Practitioner Acute Care; Visit Provider Nurse Practitioner Acute Care
DX: M25.561 Pain in right knee (principal)
CPT/HCPCS: 73564; 94618

== ENCOUNTER → 2024-06-06 | Outpatient (CLI) | payer MEDICAID, SELFPAY ==
--- NOTE | 2024-06-06 09:02 | BD_ITS ---
STUDY: DUAL ENERGY X-RAY ABSORPTIOMETRY / DXA REASON FOR EXAM: Female, 64 years old. Osteoporosis TECHNIQUE: Bone Mineral Density (BMD) measurements of lumbar spine and bilateral hips were obtained. COMPARISON: Comparison is made with prior study dated July 30, 2020. FINDINGS: Lumbar Spine (L1-L4): g/cm2 (0.762) / T-score (-2.6) / Z-score (-1.0) Findings are suggestive of osteoporosis with a high fracture risk. Left Femur Total: g/cm2 (0.583) / T-score (-2.9) / Z-score (-1.8) Left Femoral Neck: g/cm2 (0.500) / T-score (-3.1) / Z-score (-1.7) Right Femur Total: g/cm2 (0.554) / T-score (-3.2) / Z-score (-2.1) Right Femoral Neck: g/cm2 (0.468) / T-score (-3.4) / Z-score (-2.0) The T-Scores on the most recent prior examination were: Lumbar Spine (L1-L4): There has been worsening of bone density since the previous examination. Left Femur Total: which represents an improvement of 1.7%. Right Femur Total: which represents a worsening of 2.4%. BD/Dexa Bone Density Study IMPRESSION: The patient is considered osteoporotic as outlined below according to World [place] Organization (WHO) criteria with a high fracture risk. There has been worsening of bone density since the previous examination. Reference Information: The T-score is the number of standard deviations above or below the standard which is normal for young adults at their peak bone mineral density. The World Health Organization (WHO) interprets the T-scores as follows: Above -1 Normal bone density Between -1 and -2.5 Osteopenia Equal to / or below -2.5 Osteoporosis As a practical clinical guideline, osteopenia may be graded as follows: Mild -1 through -1.5 Moderate -1.6 through -2.0 Severe -2.1 through -2.4 The Z-score is the number of standard deviations above or below age-matched controls. A Z-score of less than -1.5 would be considered abnormal. References: 1. NIH Osteoporosis and Related Bone Diseases www osteo.org 2. International Society for Clinical Densitometry www iscd.org 3. National Osteoporosis Foundation www nof.org Electronically Signed: David Brar MD at 9:22 EST ,
== END | disposition home or self-care (01) ==
PROVIDERS: PCP Internal Medicine; Referring Provider Internal Medicine; Visit Provider Internal Medicine
DX: M81.0 Age-related osteoporosis without current pathological fracture (principal)
CPT/HCPCS: 77080; 94060; 94726; 94729

== ENCOUNTER → 2024-06-13 | Outpatient (CLI) | payer MEDICAID, SELFPAY | END | disposition home or self-care (01) | LOC: SL 12:46 | PROVIDERS: PCP Internal Medicine; Referring Provider Nurse Practitioner Acute Care; Visit Provider Nurse Practitioner Acute Care | DX: R09.02 Hypoxemia (principal) | CPT/HCPCS: 94762 ==

== ENCOUNTER → 2024-09-26 | Outpatient (CLI) | payer MEDICAID, SELFPAY ==
--- NOTE | 2024-09-26 11:43 | MRI_ITS ---
PROCEDURE: BRAIN W/WO CONTRAST 09/26/2024 REASON FOR EXAM: BRAIN METASTASES TREATED, COMPARE TO PRIOR TECHNIQUE: Brain MRI without and with intravenous contrast with additional dedicated imaging of the IACs. CONTRAST: 12 cc IV Clariscan was administered. COMPARISON: None FINDINGS: TECHNIQUE: Multiplanar, multi-sequence MRI of brain was performed without and with IV contrast. FINDINGS: BRAIN/PARENCHYMA: No evidence of acute infarction or acute intracranial hemorrhage. Status post right frontal craniotomy, with encephalomalacia and gliosis within the anterior right frontal lobe in the region of the prior treated metastatic lesion. Within the posterior margin of the lesion, there is a 5 mm enhancing focus (series 12, image 88), concerning for recurrent disease. Additionally, there are several supratentorial and infratentorial peripherally enhancing lesions scattered throughout the brain, concerning for progressive metastasis. Index lesions are as follows; 7 mm lesion right superior parietal lobe parasagittal falx (series 12, image 104) 9 mm left temporal lobe lesion (series 12, image 51); 9 mm left lateral thalamic lesion (series 2, image 57) 10 mm left occipital lobe lesion (series 12, image 39) 6 mm lateral right cerebellar hemisphere lesion (series 12, image 24) Several of the enhancing lesion are scattered throughout the brain. Extensive subcortical and periventricular white matter FLAIR hyperintensities, likely related to a combination of treatment related changes and chronic microvascular ischemic disease. No abnormal post- contrast enhancement. EXTRA-AXIAL SPACES: No abnormal extra-axial fluid collections. Patent basal cisterns and foramen magnum. MIDLINE SHIFT: None. VENTRICLES: No hydrocephalus. SCALP SOFT TISSUES & CALVARIUM: No significant abnormality. VISUALIZED SINUSES & MASTOIDS: Mild-moderate paranasal sinus mucosal thickening, most prominent at the maxillary sinuses.. Large right and moderate left mastoid effusions.. ARTERIAL FLOW VOIDS: Preserved major arterial flow voids indicating gross patency. MRI/Brain W/WO Contrast IMPRESSION: 1. Postoperative changes right frontal craniotomy with encephalomalacia and gli osis within the prior resection mass with however there was new nodularity or enhancement within this cavity, concerning for loca l recurrence. 2. Extensive supratentorial and infratentorial peripherally enhancing lesions a s detailed above, concerning for progressive metastasis. 3. [place] supratentorial T2/FLAIR hyperintensity, likely secondary to a com bination of treatment related changes and chronic microvascular ischemia. Reading Location: [facility]
[2024-09-26] MEDS: 0.9 % NaCl (Sterile) Posiflush 10 mL IV (12:15)
[2024-09-26] MEDS: 0.9% Saline Lock 10 ML Syringe IV (12:20)
== END | disposition home or self-care (01) ==
LOC: MRI 11:28
PROVIDERS: PCP Internal Medicine; Referring Provider Student in an Organized Health Care Education/Training Program; Visit Provider Student in an Organized Health Care Education/Training Program
DX: C79.31 Secondary malignant neoplasm of brain (principal); C80.1 Malignant (primary) neoplasm, unspecified
CPT/HCPCS: 70553; A9575; A4216

== ENCOUNTER → 2024-10-11 | Outpatient (CLI) | payer MEDICAID, SELFPAY ==
--- NOTE | 2024-09-26 12:31 | NURSING ---
Charges for MRI visit put into this CT visit on accident.
--- NOTE | 2024-10-11 14:08 | CT_ITS ---
PROCEDURE: CT CHEST AND ABD W/ CONTRAST 10/11/2024 REASON FOR EXAM: NSCLC, MET TO BRAIN SURVEILLANCE IMAGING TECHNIQUE: Chest and abdomen CT with intravenous contrast. Coronal and Sagittal reconstruction series were provided. One or more dose reduction techniques were used (e.g., Automated exposure control, adjustment of the mA and/or kV according to patient size, use of iterative reconstruction technique. PATIENT PREPARATION: Per protocol ORAL CONTRAST TYPE: None. AMOUNT: mL COMPARISON: 03/21/2024 FINDINGS: CT CHEST: Hardware: Right internal jugular chest port. Lymph nodes: No mediastinal, hilar, or axillary lymphadenopathy. Heart and Vasculature: Normal heart size. No pericardial effusion. Thoracic aorta and pulmonary arteries are unremarkable. Lungs and Airways: Mild emphysema. Status post left upper lobectomy. No noncalcified nodule or mass. Linear scarring in the lateral left lower lobe. Pleura: No pleural effusion. CT ABDOMEN: Liver: Normal size. No mass. Gallbladder: Unremarkable. Spleen: Normal size. Pancreas: Normal size without evidence of mass surrounding inflammation or ductal dilation. Adrenals: Normal right adrenal gland. Interval development of a 2 cm nodule of the left adrenal gland worrisome for metastasis. Kidneys: Normal renal sizes. No hydronephrosis. Bowel: Unremarkable. Lymph nodes: Unremarkable. Vasculature: Mild diffuse atherosclerotic calcifications are noted. Peritoneum / Retroperitoneum: Unremarkable. Bones: Multiple chronic mild compression fractures in the thoracolumbar spine. Mild levoscoliosis of the thoracolumbar spine with degenerative disc disease. Multiple healed left rib fractures. CT/CT Chest AND Abd W/ Contrast IMPRESSION: Coronary artery calcification (CAC) is was not evaluable Status post left upper lobectomy with a new 2 cm nodule of the left adrenal gla nd worrisome for metastasis. Reading Location: [id number]
[2024-10-11] MEDS: 0.9% Saline Lock 10 ML Syringe IV (14:45)
== END | disposition home or self-care (01) ==
LOC: CT 14:06
PROVIDERS: PCP Internal Medicine; Referring Provider Nurse Practitioner Family; Visit Provider Nurse Practitioner Family
DX: C34.12 Malignant neoplasm of upper lobe, left bronchus or lung (principal); C79.31 Secondary malignant neoplasm of brain
CPT/HCPCS: 71260; 74160; Q9967; A4216

== ENCOUNTER 2024-11-13 11:30 | Outpatient (RCR) | payer MEDICAID, SELFPAY ==
--- NOTE | 2024-07-18 15:42 | HP.SP.EVAL ---
Visit History Visit Info Date of Eval: 07/18/24 Visit: 1 District Supervisor: APOLINAR History Attending Doctor: Referring Doctor: Reason for Referral: SECONDARY MALIGNANT NEOPLASM OF BRAIN/RX SCANNED Medical Diagnosis: C79.31 Date of Onset of Diagnosis: 08/01/2022 Previous speech therapy: No Results: The patient was referred for cognitive evaluation due to difficulty w/ memory s/p whole brain radiation treatment. She lives w/ her . She is able to complete most adls herself, including showering, dressing, cooking. She did have difficulty getting up from her chair during ST evaluation. REFLECTOR DRILLER AND DEBURRER recommended PT consult, but pt feels she can't add anymore appointments to her schedule at this time and would like to hold off on PT referral. Pt is independently completing medication management and was able to list current medications and time of day taken without difficulty. She does require reminders from her to take medications. She manages bill paying in the household w/ little help from her . Pt reports greatest concerns with deficits in memory, word finding, and attention. 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 09/12/2022). She has undergone several treatments with brain SRS and unfortunately MRI completed 05/07/2024 showed evidence of increase in numerous bilateral cerebral hemisphere lesions?.the patient received whole brain radiation therapy consisting of 3000 cGy delivered in 10 fractions (06/17/2024-07/02/2024). She is being treated with concurrent memantine but hippocampal avoidance was not possible due to lesions nearby both hippocampi. The patient did not receive concurrent chemotherapy.? Smoking Status: Former smoker Pain Is pain an issue with your current prescribed condition?: Yes Personal Preferred language: Azeri Patient Allergies Allergies Allergies: Allergies meperidine (From Demerol) Allergy (Severe, Verified 07/02/24 14:24) Itching Reference: Neuro-QoL instrument Radiation Oncology Patient Other Other BCAT - Form A Responses: -: Brief Cognitive Assessment Tool (BCAT?) Report Orientation: Immediate Verbal Recall: Visual Recognition/Namin Attention: Letter List: Mental Control - Count Backward: Mental Control - Recite Days: Digits Forward: Digits Backward: Abstraction: Language: Repeat: Fluency:2 Executive: Cognitive Shiftin Arithmetic Reasonin Judgment:0 Visuospatial: Design:0 Clock: Memory: Delayed Verbal Recall: Immediate Story Recall: Delayed Visual Memory: Delayed Story Recall: Story Recognition: Comments BCAT Interpretation: -: Education High School Graduate/GED Date 07/18/2024 Examiner Alea Pedersen Administration Number 1st Total BCAT? Score: 41 Impression: This BCAT? score is suggestive of Mild Cognitive Impairment (MCI). The BCAT? provides information about the probable MCI stage and the probable MCI subtype. Both are important for identifying individual strengths and weaknesses, determining actionable interventions, and creating a patient-centered plan of care. MCI is essentially a cognitive syndrome that may represent a pre-dementia phase. People with MCI have more cognitive impairment than those with normal cognition but less impairment than people living with dementia. Probable MCI Stage: Stage 1 MCI Staging is based on total BCAT? Test Scores. Stage 1 MCI reflects total BCAT? Scores between 39-43 (inclusive). People with Stage 1 MCI have more subtle changes in cognition and functional performance than people with Stage 2 MCI. Also, people with Stage 1 MCI are less likely to progress to dementia and have a longer MCI timeline than people with Stage 2 MCI. Total Contextual Memory Factor (CMF) Score: 13 The Contextual Memory Factor (CMF) indicates current verbal memory skills. It is highly predictive of cognitive diagnosis (MCI versus dementia) and instrumental activities of daily living (IADL). It is also sensitive to those who have amnestic MCI (and who do not have dementia). The score range is 0-15. Scores below 12 typically indicate significant memory concerns that can impact everyday living. A score of 14, combined with a total BCAT? score in the MCI range, is often associated with [id number]. When this occurs, a review of executive functions and other cognitive domains may be helpful. Total Executive Control Functions Factor (ECFF) Score: 5 The Executive Control Functions Factor (ECFF) indicates current executive control functions abilities. There is a strong correlation between ECFF and predicting everyday activities of daily living, especially the higher order skills involving judgment, problem-solving, and reasoning. The score range is 0-7. Scores below 5 generally indicate problems in executive control that could interfere with successful independent living. Some people have problems with executive functions but have relatively intact memory skills. When this occurs, the subtype of executive MCI may be indicated. Total Complex Attention Factor (CAF) Score: 8 Complex attention is an essential cognitive domain. It includes immediate, selective, and divided attention skills. It is highly associated with the ability to perform basic and complex activities of daily living. The Complex Attention Factor score (CAF) predicts ADL and IADL abilities and empirically measures the attentional skills necessary for independent functioning. Lower scores are associated with weaker performance, whereas higher scores suggest stronger abilities. Scores of 7-8 are within the normal/adequate range, and persons with these results may demonstrate higher levels of independence. Scores below 7 indicate likely attentional deficits, the need for more supervision or assistance, and higher risk for safety concerns and errors when completing basic or complex functional tasks. Please note that the CAF has a low performance threshold so most people should score in the adequate range. Total Cognitive Task Consulting It Architect (CTM) Score: 26 The CTM is an important clinical tool that informs the plan of care and should be used to identify persons at higher risk for cognitively related functional deficits. When interpreting the CTM score, it is helpful to recognize what scores indicate normal functioning and what scores indicate higher risk. CTM scores in the 26-30 range are within normal limits. These patients have relatively low risk. CTM scores in the 20-25 range indicate moderate risk. CTM scores below 20 indicate relatively high risk. For patients with scores in the moderate or high-risk ranges, clinicians are advised to assess for functional deficits, home safety, and behavioral problems, creating person centered treatment plans that address these johnson areas of concern. For more detailed information about the CTM Score, review the BCAT? Cognitive Task Consulting It Architect Crosswalk Table here. Plan Plan Plan: The patient presents w/ mild cognitive communication deficit characterized by impaired short term recall, executive functioning (working memory, attention, problem solving), and word retrieval. POC to include cognitive training exercises and training in compensatory strategies to improve memory and word finding. ST is warranted to promote safe and independent completion of higher level adls. Recommendations Treatment Warranted: Yes Treatment Warranted: Cognition Progress Prognosis: Good Frequency Frequency: Every Other Week Duration: 2-4 Months Patient/Family Goal Patient/Family Goal: Improve memory Goals that are Established Determination:: Goals will be added/modified as deemed necessary and appropriate. Therapy will be discontinued when results of re-evaluation indicate therapy is no longer needed or lack of progress has been documented. Goal #1-5 Goal #1: The patient will demonstrate recall of novel information with 90% accuracy with 15-30 min delay provided minimal verbal cues for use of compensatory strategies. Goal #2: The patient will demonstrate use or verbalize awareness of compensatory strategies to improve recall with minimal verbal cues. Goal #3: The patient will complete executive function tasks (working memory, organization, attention, problem solving) with 90% accuracy with minimal verbal cues to promote independence completing higher level ADLs, including medication and finance management. Goal #4: The patient will complete divergent naming tasks (abstract categories) X10-15 items given minimal verbal cues to improve word retrieval. Goal #5: The patient will demonstrate use or verbalize awareness of compensatory strategies to improve word retrieval in complex conversation with minimal verbal cues. Education Patient has Indicated that the Following Other Educational Needs: Difficulty w/ memory. Likes to have information written down. Patient Instruction Patient Education: Diagnosis, Treatment Plan and Goals Person Taught: Patient and Significant Other Teaching Method: Discussion Response to teaching: Verbalize Understanding
--- NOTE | 2024-11-13 12:34 | HP.SP.DC_ITS ---
ST Discharge Summary Discharged: Discharge: ST POC initiated in July 2024 for mild cognitive impairment. She attended [address] sessions during POC, including 1 visit today. Since previous visit was over 3 months ago, HOSTESS CASHIER held discussion w/ pt and re: speech therapy POC goals. The pt politely expressed that she doesn't have current interest participating in additional speech therapy, but would like it to be available as a resource to her down the road if cognition worsens. HOSTESS CASHIER told the patient she could discharge from current ST POC. If pt desires to return in the future due to worsening cognition, please call the medical front desk specialist and HOSTESS CASHIER will obtain orders and re-evaluate cognitive-linguistic skills to determine appropriateness for additional ST services. Pt and agreeable to ending current POC.
== END 2024-11-13 19:00 | disposition home or self-care (01) ==
LOC: SP 11:30
PROVIDERS: PCP Internal Medicine; Referring Provider Student in an Organized Health Care Education/Training Program; Visit Provider Student in an Organized Health Care Education/Training Program
DX: C79.31 Secondary malignant neoplasm of brain (principal); R41.841 Cognitive communication deficit
CPT/HCPCS: 92507; 92523

== ENCOUNTER → 2024-12-03 | Outpatient (CLI) | payer MEDICAID, SELFPAY ==
--- NOTE | 2024-12-03 13:58 | MRI_ITS ---
PROCEDURE: BRAIN W/WO CONTRAST 12/03/2024 REASON FOR EXAM: FOLLOW UP TREATED BRAIN METASTASES. TECHNIQUE: BRAIN W/WO CONTRAST Multiplanar and multisequence images were obtained. CONTRAST: Clariscan VOLUME: 12 mL COMPARISON: 09/26/2024. FINDINGS: BRAIN/PARENCHYMA: No evidence of acute infarction or acute intracranial hemorrhage. Status post right frontal craniotomy, with encephalomalacia and gliosis within the anterior right frontal lobe in the region of the prior treated metastatic lesion. Within the posterior margin of the lesion, there is an 8 (previously 5 mm) enhancing focus concerning for recurrent disease. Additionally, there is increase in the size and number of the previously described several supratentorial and infratentorial peripherally enhancing lesions scattered throughout the brain, concerning for progressive metastasis. Index lesions are as follows; 7 mm lesion right superior parietal lobe parasagittal falx measuring 9 mm on the current exam. 9 mm left temporal lobe lesion measuring 12 mm on the current exam. 9 mm left lateral thalamic lesion measuring 11 mm on the current exam. 10 mm left occipital lobe lesion measuring 12 mm on the current exam. 6 mm lateral right cerebellar hemisphere lesion measuring 8 mm on the current exam. Several of the enhancing lesion are scattered throughout the brain have mildly increased in size. Extensive subcortical and periventricular white matter FLAIR hyperintensities, likely related to a combination of treatment related changes and chronic microvascular ischemic disease, mildly increased. Mild increase in right cerebellar edema/white-matter changes. No abnormal post-contrast enhancement. EXTRA-AXIAL SPACES: No abnormal extra-axial fluid collections. Patent basal cisterns and foramen magnum. MIDLINE SHIFT: None. VENTRICLES: No hydrocephalus. SCALP SOFT TISSUES & CALVARIUM: No significant abnormality. VISUALIZED SINUSES & MASTOIDS: Unchanged moderate mastoid effusions. ARTERIAL FLOW VOIDS: Preserved major arterial flow voids indicating gross patency. MRI/Brain W/WO Contrast IMPRESSION: *Postoperative changes right frontal craniotomy with encephalomalacia and glios is within the prior resection mass with however there is increased nodularity or enhancement within this cavity, concerning for local recurrence/progression. *Extensive supratentorial and infratentorial peripherally enhancing lesions as detailed above, concerning for progressive metastasis. The lesions have mildly increased in size and number. *[place] supratentorial T2/FLAIR hyperintensity, likely secondary to a combi [place] of treatment related changes and chronic microvascular ischemia, findings have mildly progressed. *Increased edema/white-matter changes in the lateral aspect of the right cerebe llar hemisphere. *Resolution of the previously described secretions in the maxillary sinuses. *Unchanged mastoid effusions. Reading Location: [place] [id number]
== END | disposition home or self-care (01) ==
LOC: OPMRI 13:58
PROVIDERS: PCP Internal Medicine; Referring Provider Student in an Organized Health Care Education/Training Program; Visit Provider Student in an Organized Health Care Education/Training Program
DX: C79.31 Secondary malignant neoplasm of brain (principal); C80.1 Malignant (primary) neoplasm, unspecified
CPT/HCPCS: 70553; A9575